=== PATIENT | male | born 1970 | race Caucasian/White ===

== ENCOUNTER → 2017-07-06 14:45 | Outpatient (POV) | payer BC, SELFPAY | PROVIDERS: Visit Provider Dermatology | DX: Z00.00 Encounter for general adult medical examination without abnormal findings (principal) ==

== ENCOUNTER → 2017-10-20 08:18 | Outpatient (CLI) | payer BC, SELFPAY ==
[2017-10-20 09:01] LABS: Alanine Aminotransferase 22 U/L (12-78); Albumin/Globulin Ratio 1.4 (1.1-1.8); Alkaline Phosphatase 108 U/L (46-116); Anion Gap 10.9 mEq/L (5-15); Aspartate Amino Transferase 9 U/L (15-37); Bilirubin,Total 0.4 mg/dL (0.2-1.0); Blood Urea Nitrogen 23 mg/dL (7-18); Calcium 9.1 mg/dL (8.5-10.1); Carbon Dioxide 29 mmol/L (21.0-32.0); Chloride 105 mmol/L (98-107); Cholesterol 152 mg/dL (140-200); Creatinine,Serum 0.99 mg/dL (0.70-1.30); Estimated Glomerular Filt Rate 80 ml/min (>60); GFR (African American) 97 ML/MIN (>60); Globulin 2.9 gm/dl (1.3-3.2); Glucose 125 mg/dL (74-106); HDL Cholesterol 38 mg/dL (27-67); LDL Cholesterol 90 mg/dL (0-130); Potassium 3.9 mmoL/L (3.5-5.1); Sodium 141 mmol/L (136-145); Total Protein,Serum 6.9 gm/dL (6.4-8.2); Triglycerides 118 mg/dL (30-200); Uric Acid 5.6 mg/dL (2.6-7.2); VLDL Cholesterol 24 mg/dL (0-40)
== END ==
PROVIDERS: Visit Provider Physician Assistant
DX: E78.1 Pure hyperglyceridemia (principal); E79.0 Hyperuricemia without signs of inflammatory arthritis and tophaceous disease; I10 Essential (primary) hypertension
CPT/HCPCS: 36415; 80053; 80061; 84550

== ENCOUNTER 2023-04-21 09:44 | Outpatient (CLI) | payer BC, SELFPAY ==
--- NOTE | 2023-04-21 09:53 | XR_ITS ---
FINAL REPORT CLINICAL HISTORY: RT SIDED LOW BACK PAIN FINDINGS: LUMBAR SPINE Five views demonstrate no acute fracture. Moderate degenerative changes are present. There is mild anterolisthesis of L4 on 5. Facet arthropathy seen in the lower lumbar spine. Note is made of vacuum phenomenon at L5-S1. IMPRESSION: Multilevel degenerative changes without acute bony abnormality. Reviewed, Interpreted and Dictated by Philippe Rubin III, MD Transcribed by Stephanie Bill Authenticated and [facility]
== END 2023-04-21 23:59 ==
LOC: RAD 09:48
PROVIDERS: PCP Physician Assistant; Visit Provider Physician Assistant
DX: M43.16 Spondylolisthesis, lumbar region (principal)
CPT/HCPCS: 72110

== ENCOUNTER 2023-06-12 14:49 | Outpatient (CLI) | payer BC, SELFPAY ==
[2023-06-12 15:36] LABS: Microscopic, Urine URINE MICROSCOPIC (MICROSCOPIC)
[2023-06-12 16:18] LABS: Appearance,Urine CLEAR (Clear); Bilirubin,Urine Negative (Negative); Blood, Urine Negative (Negative); Color,Urine YELLOW (Yellow); Glucose,Urine (UA) Negative (Negative); Ketones,Urine Negative (Negative); Leukocyte Esterase,Urine Negative (Negative); Nitrate,Urine Negative (Negative); Protein,Urine Negative (Negative); Specific Gravity, Urine 1.015 (1.005-1.030); Urobilinogen,Urine 0.2 EU/dl (0.2)
[2023-06-12 16:38] LABS: Squamous Epithelial Cell,Urine Occasional #/hpf (0-5)
[2023-06-13 13:10] LABS: PSA, Free 1.88 ng/mL; Prostate Specific Ag 11.4 ng/mL (0.0-4.0)
== END 2023-06-12 23:59 ==
LOC: LAB 14:50
PROVIDERS: PCP Physician Assistant; Visit Provider Urology
DX: N40.0 Benign prostatic hyperplasia without lower urinary tract symptoms (principal); R97.20 Elevated prostate specific antigen [PSA]
CPT/HCPCS: 36415; 81001; 84153; 84154

== ENCOUNTER 2023-06-22 11:40 | Day surgery (SDC) | payer BC, SELFPAY ==
[2023-05-22 10:39] VITALS: BMI 35.5
[2023-06-22 11:54] VITALS: BP 142/58; PULSE 57; RESP 18; TEMP 36.2; O2SAT 97
[2023-06-22] MEDS: LACTATED RINGERS 1000ML 1,000 ML 25 ML IV (11:59)
--- NOTE | 2023-06-22 12:24 | EXP.ANES.CKL ---
[facility] Disclaimer: The information contained in this section may have been updated after the patient was seen, as this information can be updated by other users. Medical History Hyperlipidemia Hypertension Surgical History History of esophagogastroduodenoscopy (EGD) History of colonoscopy History of tonsillectomy Family History Other Family history of heart disease Social History Smoking Status: Never smoker alcohol intake: never substance use type: denies use current occupational status: employed Travel in the last 8 weeks: None [facility] Anesthesia Checklist Patient Identification Patient Identification: Arm Band and Verbal (Name & ) Structural Data Admitted From: Home Planned Operative Procedure/s: Colonoscopy Consent for Planned Operative Procedure(s) Verified: Yes NPO Status Verified Time NPO: 00:00 Additional verifications Anesthesia Reactions: No Airway Assessment Mallampati Score:: Class II C-Spine Mobility Assessed: Yes TMJ Mobility Assessed: Yes Dentition: Poor Dentition Neurological Assessment Level of Consciousness: Awake Hx Seizures: No Numbness or tingling in extremities: No Anesthesia Plan Anesthesia Risk discussed: Yes Anesthesia Plan: Verified ASA Class: II Anesthesia Type: MAC
[2023-06-22 13:09] VITALS: O2SAT 97
--- NOTE | 2023-06-22 13:18 | HMH.SCOPE ---
Procedure: Date: 06/22/23 Patient Date of :: 1970 Procedure Performed:: Screening colonoscopy Indications:: History of polyps Performing Provider:: Carlotta Figueroa MD Referring Provider:: Megan Nuñez APRN Sedation:: Propofol Procedure:: After placing the patient in the left lateral decubitus position, the colonoscopy was gently inserted into the rectum and under direct visualization advanced to the cecum which was identified by transillumination in the right lower quadrant, identification of the ileocecal valve, appendiceal orifice, and cecal strap. Color, texture, mucosa, and anatomy of the colon were carefully examined with the scope. Findings:: Anal canal: normal Rectum: normal Sigmoid colon: normal without polyps or inflammatory changes Descending colon: normal without polyps or inflammatory changes Splenic flexure: normal Transverse colon: normal without polyps or inflammatory changes Hepatic flexure: normal Ascending colon: normal without polyps or inflammatory changes Cecum: normal Terminal ileum: not visualized Impression: Normal colonoscopy Recommendations:: Follow up examination in about FIVE years or so, sooner if clinically indicated in view of history of polyps. Complications:: None Estimated blood obtained (mL): 0 Colonoscopy Component Colonoscopy Component Was a colonoscopy performed during today's procedure?: Yes Recommended follow up colonoscopy of at least 10 years?: No If no, follow up colonoscopy recommended in ___ years?: Five Reason for not recommending >/= 10 yr follow-up interval?: Polyps
[2023-06-22 13:21] VITALS: BP 98/59; PULSE 61; RESP 16; O2SAT 96
[2023-06-22 13:31] VITALS: BP 104/66; PULSE 67; RESP 16; O2SAT 97
[2023-06-22 13:41] VITALS: BP 108/69; PULSE 61; RESP 16; O2SAT 98
== END 2023-06-22 14:00 | disposition home or self-care (01) ==
PROVIDERS: PCP Physician Assistant; Visit Provider Internal Medicine Gastroenterology
PROC: 0DJD8ZZ Inspection of Lower Intestinal Tract, Via Natural or Artificial Opening Endoscopic (ICD-10-PCS; CPT 45378; principal; 2023-06-22 13:00)
DX: Z12.11 Encounter for screening for malignant neoplasm of colon (principal); Z86.010 Personal history of colon polyps
CPT/HCPCS: 45378

== ENCOUNTER 2023-09-03 09:12 | Emergency (ER) | payer BC, SELFPAY ==
[2023-09-03 09:40] VITALS: BP 130/74; PULSE 88; RESP 18; TEMP 36.8; O2SAT 96; BMI 35.9
--- NOTE | 2023-09-03 09:42 | ED_ITS ---
Discharge Plan Disposition Patient Disposition: Home, Self-Care Condition: Good Prescriptions Prescriptions: New methylprednisolone 4 mg Tablets,Dose Pack 4 mg PO DIRECTED 6 Days Qty: 21 0RF Rx Instructions: Take 1 pack as directed for 6 days No Action loratadine 10 mg tablet 10 mg PO DAILY Patient Comments: TAKE 1 TABLET BY MOUTH ONCE DAILY tamsulosin [Flomax] 0.4 mg capsule 0.4 mg PO DAILY Qty: 30 3RF lisinopril 20 mg Tablet 20 mg PO DAILY bisoprolol fumarate 10 mg Tablet 10 mg PO DAILY rosuvastatin 20 mg Tablet 20 mg PO DAILY Referrals Follow up/Referrals: James Hernandez MD [Primary Care Provider] - See instructions Elaine Monroe DPM [Staff Physician] - See instructions Activity Restrictions/Add. Instructions Additional Instructions/Restrictions: Rest the extremity, Elevate the extremity as tolerated while you are resting. Don't start the oral steroids (medrol dose pack) until tomorrow since you had the shot here today. Follow up with Dr. Monroe (podiatry) if you continue to have these symptoms. I put in a referral but you need to call her office and schedule an appointment. Follow up with your regular doctor. GO TO THE ER FOR ANY WORSENING SYMPTOMS Clinical Impressions Clinical Impression: Right Achilles tendinitis, Pain in right ankle Stand Alone Forms Stand Alone Forms: Work/School Release Discharge ED Provider: Clint Manrique [facility] General Stated complaint: inj to left ankle, no known accident Time Seen by Provider: 09/03/23 09:42 History of Present Illness Provider Complaint: He states that for the past 5 days he has had left ankle pain. He denies any known injury. 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 He denies any other pain or complaints. He does have a history of gout. Related Data Home Medications Medication Instructions Recorded Confirmed bisoprolol fumarate 10 mg tablet 10 mg PO DAILY 05/22/23 09/03/23 lisinopril 20 mg tablet 20 mg PO DAILY 05/22/23 09/03/23 rosuvastatin 20 mg tablet 20 mg PO DAILY 05/22/23 09/03/23 loratadine 10 mg tablet 10 mg PO DAILY 06/12/23 09/03/23 Previous Rx's Medication Instructions Recorded tamsulosin 0.4 mg capsule (Flomax) 0.4 mg PO DAILY #30 caps 06/26/23 methylprednisolone 4 mg tablets in 4 mg PO DIRECTED 6 days #21 tabs 09/03/23 a dose pack Allergies Allergy/AdvReac Type Severity Reaction Status Date / Time amoxicillin Allergy Severe Other Verified 09/03/23 10:06 erythromycin base Allergy Severe Other Verified 09/03/23 10:06 Penicillins Allergy Severe Other Verified 09/03/23 10:06 [facility] Dis[facility]: The information contained in this section may have been updated after the patient was seen, as this information can be updated by other users. Medical History Hyperlipidemia Hypertension Surgical History History of esophagogastroduodenoscopy (EGD) History of colonoscopy History of tonsillectomy Family History Other Family history of heart disease Social History Smoking Status: Never smoker alcohol intake: never substance use type: denies use current occupational status: employed Travel in the last 8 weeks: None ROS Obtained: Yes All systems reviewed & no additional complaints except as documented Constitutional Constitutional: Denies chills and Denies fever(s) Eyes Eyes: Denies eye discharge ENT Ears, Nose, Mouth, and Throat: Denies dizziness, Denies otalgia and Denies sore throat Cardiovascular Cardiovascular: Denies chest pain Respiratory Respiratory: Denies shortness of breath, Denies chest congestion, Denies cough, Denies stridor and Denies wheezing Gastrointestinal Gastrointestingal: Denies nausea or vomiting Musculoskeletal Musculoskeletal: Reports as per HPI Integumentary/Breasts Skin/Breast: Denies rash Neurologic Neurologic: Denies dizziness and Denies paresthesias Allergic/Immunologic Allergic/Immunologic: Denies wheezing Physical Exam General General appearance: alert and in no apparent distress Head Head exam: atraumatic, normocephalic and normal inspection Eye Eye exam: Present normal appearance, PERRL and EOMI ENT ENT exam: Present normal exam, normal oropharynx, mucous membranes moist, TM's normal bilaterally and normal external ear exam Neck Neck exam: Present normal inspection, full ROM and trachea midline; Absent meningismus or lymphadenopathy Chest Chest inspection: Present normal inspection and symmetric chest wall rise; Absent tenderness Respiratory Respiratory exam: Present normal lung sounds bilaterally; Absent respiratory distress Cardiovascular Cardiovascular exam: Present regular rate and normal rhythm; Absent JVD Abdominal Exam Abdominal exam: Present soft and normal bowel sounds; Absent distention, tenderness or guarding Extremities Exam Extremities exam: Present normal capillary refill; Absent calf tenderness Expanded Lower Extremity Exam Left: Knee exam: Present normal inspection, full ROM and knee extension intact; Absent tenderness Lower leg exam: Present normal inspection, full ROM and Achilles tendon intact; Absent tenderness or Homans' sign Ankle exam: Present tenderness and swelling; Absent full ROM, abrasion, laceration, ecchymosis, deformity, crepitus, dislocation, erythema, tenderness over talofibular lig or anterior draw sign Foot/toe exam: Present normal inspection and full ROM; Absent tenderness Neurovascular/Tendon exam: Present normal capillary refill, normal 2-point discrimination and normal fine/light touch; Absent pulse deficit, motor deficit, sensory deficit, tendon deficit, extremity cold to touch or pallor Gait: observed and limited by pain Back Exam Back exam: Present normal inspection; Absent tenderness Neurological Exam Neurological exam: Present alert and oriented X3 Psychiatric Psychiatric exam: Present normal affect and normal mood Skin Skin exam: Present warm, dry, intact and normal color Lymphatic Lymphatic Findings: no adenopathy Medical Decision Making Medical Records Medical records reviewed: No I reviewed the patient's medical records. Mk Inquiry Pt receiving controlled substance: No
--- NOTE | 2023-09-03 09:45 | XR_ITS ---
PROCEDURE INFORMATION: Exam: XR Right Foot Exam date and time: 09/03/2023 9:55 AM Age: 52 years old Clinical indication: Injury or trauma; Other: Twisted TECHNIQUE: Imaging protocol: Radiologic exam of the right foot. Views: 3 or more views. COMPARISON: No relevant prior studies available. FINDINGS: Bones/joints: No acute fracture or malalignment. Mild 1st MTP joint degenerative changes. Soft tissues: Normal. IMPRESSION: No acute fracture or malalignment.
--- NOTE | 2023-09-03 09:45 | XR_ITS ---
PROCEDURE INFORMATION: Exam: XR Right Ankle Exam date and time: 09/03/2023 9:55 AM Age: 52 years old Clinical indication: Injury or trauma; Other: Twisted TECHNIQUE: Imaging protocol: Radiologic exam of the right ankle. Views: 3 or more views. COMPARISON: CR XR FOOT RT MIN 3V 09/03/2023 9:55 AM FINDINGS: Bones/joints: No acute fracture or malalignment. Joint spaces are maintained. Soft tissues: Normal. IMPRESSION: No acute fracture or malalignment.
[2023-09-03] MEDS: KETOROLAC 60MG/2ML VIAL 60 MG IM (11:00)
[2023-09-03] MEDS: METHYLPREDNISOLONE SOD SUCC 125MG VIAL 125 MG IM (11:01)
[2023-09-03 11:21] VITALS: BP 130/74; PULSE 88; RESP 18; TEMP 36.8; O2SAT 96
== END 2023-09-03 11:21 | disposition home or self-care (01) ==
PROVIDERS: Emergency Provider Nurse Practitioner Family; PCP Family Medicine
DX: M76.61 Achilles tendinitis, right leg (principal); M25.571 Pain in right ankle and joints of right foot
CPT/HCPCS: 73610; 73630; 96372; 99204; 99212; G0463

== ENCOUNTER 2024-02-19 13:14 | Outpatient (CLI) | payer BC, SELFPAY ==
[2024-02-20 03:53] LABS: PSA, Free 0.82 ng/mL; Prostate Specific Ag 12.8 ng/mL (0.0-4.0)
== END 2024-02-19 23:59 | disposition home or self-care (01) ==
LOC: LAB 13:15
PROVIDERS: PCP Family Medicine; Visit Provider Urology
DX: C61 Malignant neoplasm of prostate (principal); N40.0 Benign prostatic hyperplasia without lower urinary tract symptoms
CPT/HCPCS: 36415; 84153; 84154

== ENCOUNTER 2024-04-21 11:21 | Outpatient (CLI) | payer BC, SELFPAY ==
[2024-04-21 14:04] LABS: Prostate Specific Ag, Diagnost 16.2 ng/ml (0.0-4.0)
== END 2024-04-21 23:59 | disposition home or self-care (01) ==
LOC: LAB 11:22
PROVIDERS: PCP Physician Assistant; Visit Provider Urology
DX: C61 Malignant neoplasm of prostate (principal)
CPT/HCPCS: 36415; 84153

== ENCOUNTER 2024-10-01 18:30 | Emergency (ER) | payer BC, SELFPAY ==
--- OUTSIDE RECORDS SUMMARY | 2024-06-17 05:45 | XMS_ITS ---
[facility] Address [address] [place] [phone] Care Team Providers Care Remediation Bioanalytics Consultant Name Role Phone Keely Murray Primary Care Provider [phone] James Hernandez Unavailable [phone] Allergies Allergen (clinical drug ingredient) Drug/Non Drug [...] Status Risk Notes Problem Chronic gouty arthritis (14916786) Chronic idiopathic gout (M1A.00X0) Active confirmed Vital Signs Blood pressure systolic 118 mm Hg 06/18/19 25 Blood pressure diastolic 72 mm Hg 025 Heart Rate 72 /min 06/17/2024 Height 72 in 06/17/2024 Weight 262.6 lbs 06/17/2024 BMI 35.61 kg/m2 06/17/2024 Encounters Encounter Location Date Provider Diagnosis [place] [facility] 36 [facility] [address] [place], [place] [phone] 06/17/2024 James Hernandez Essential hypertensi on I10 [...] Up: 3 Months, Reason: Provider Name:James escalera, 11/25/2024 10:00:00 AM, [address] [facility] 36 [facility], [address], [place], [place], [phone], Progress Notes * RAMSES LICEADOB:1970 (53 yo M)Acc No.[id number]:06/17/2024 Progress Notes Patient: RAMSES GIBSON Provider: Mauricio Hernandez M.D. :1970 A ge:53 Y S ex:Male Date:06/17/2024 Address:[facility] [place] [facility] Pcp:Keely Murray Subjective: * Chief Complaints: * [...] * Images: Billing Information: * Visit Code: 53870 Office Visit, Est Pt., Level 4. * Procedure Codes: 3074F SYST BP LT 130 MM HG. 3078F DIAST BP < 80 MM HG. * Electronic signature of Ifrah Hernandez MD on 10/01/2024 at 06:38 PM EDT Sign off status: Pending * Provider: Mauricio Hernandez M.D. Date: 0 06/17/2024 Generated for Mukund ventura/Jo Ann/Nildaitting on: 0 10/01/2024 06:38 PM EDT History and Physical Notes * HPI [...]
--- OUTSIDE RECORDS SUMMARY | 2024-07-29 07:30 | XMS_ITS ---
Author Organization [facility] Address [address] [place] [id number] Care Team Providers Care Recovery Collector Name Role Phone Keely Murray Primary Care Provider [phone] James Hernandez Unavailable [phone] Allergies Allergen (clinical drug ingredient) Drug/Non Drug Allergy documented on EMR Reaction Allergy Type Onset Date Status Penicillin hives Drug Allergy Active Results Component Value Reference Range Notes Urinalysis - Inhouse Reviewed date:07/29/2024 04:28:07 PM Interpretation: Performing Lab: Notes/Report: Color/Clarity yellow/clear Leuk Neg Nitrite Neg Urobili 3.2 Protein Neg pH 6.0 Blood Trace-Intact Sp. Gr. 1.010 Ketone Neg Bili Neg Gluc Neg REASON FOR VISIT CDL physical Medications Medication SIG (Take, Route, Frequency, Duration) Notes Start Date End Date Status Flomax 0.4 MG 1 capsule Orally Onc e a day; Duration: 30 day(s) Active CoQ-10 100 MG 1 cap(s) orally once a day; Duration: 30 day(s) 01/28/2022 Active EQ All Day Allergy Relief 10 MG Take 1 tablet by mouth once daily; Duration: 30 Active Allopurinol 200 MG 1 tablet Orally Once a day Active Colchicine 0.6 MG 1 tablet Orally once daily Active Rosuvastatin Calcium 10 MG 1 tab(s) oral ly once a day; Duration: 90 days Active Lisinopril-hydroCHLOROthiaz tod 20-12.5 MG 2 tablet Orally Once a day; Duration: 90 days Active Metoprolol Succinate ER 100 MG 1 tablet Orally Once a day; Duration: 90 days 06/17/2024 Active Vital Signs Blood pressure systolic 160 mm Hg 07/30/19 25 Blood pressure diastolic 92 mm Hg 025 Heart Rate 73 /min 07/29/2024 Height 72 in 07/29/2024 Weight 263 lbs 07/29/2024 BMI 35.67 kg/m2 07/29/2024 Encounters Encounter Location Date Provider Diagnosis [facility] [address] [place] [phone] 07/29/2024 James Hernandez 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 :1970 A ge:53 Y S ex:Male Date:07/29/2024 Address:[address] [place], [place] [phone] Pcp:Keely Murray Subjective: * Chief Complaints: * 1 . CDL physical. * HPI: H PI: 53 year old male presents with c/o Patient is here today for?CDL physical. * ROS: D ERMATOLOGY: no R javid. [...] Out 2014, Colonoscopy 2015, Upper GI Scope 2016. * Hospitalization/Major Diagno stic Procedure: D enies [...] tab(s) orally once a day , Taking Lisinopril-hydroCHLOROthiazide 20-12.5 MG Tablet 2 tablet Orally Once a day , Taking Metoprolol Succinate ER 100 MG Tablet Extended Release 24 Hour 1 tablet Orally Once a day , Taking Allopurinol 200 MG Tablet 1 tablet Orally Once a day , Taking Colchicine 0.6 MG Tablet 1 tablet Orally once daily , Medication List reviewed and reconciled with the patient * Allergies: P enicillin: hives. Objective: * Vitals: W t: 263, Temp: 97.8, BP: 160/92, HR: 73, Nurse: nancy, Ht: 72, Repeat BP: 130/78, Visual Acuity: Left eye:20/20, Right eye:20/20, Both eyes:20/20, Color:Pass, Comments:With glasses, BMI:35.67. * Examination: G eneral Examination: General Appearance: N AD. H EENT: u nremarkable.?Oral cavity: n o lesions, mucosa moist and WNL, no erythema. N maurilio: s upple, no lymphadenopathy. C hest: n ormal shape and expansion. H eart: R SR. L ungs: c lear to auscultation. A bdomen: b owel sounds present , soft and nontender. N eurologic Exam: I ntact, gait normal. S kin: n ormal, no rash. P eripheral pulses: n ormal (2+) bilaterally. E xtremities: n o leg edema. Assessment: * Assessment: 1. 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 Gr. 1.010 * K etone Neg * B alka Neg * G alex Neg * Kaleigh Cordero 07/29/2024 11:22: 09 AM > Provider reviewed results while patient in office. * Procedure Codes: 8 1002 Urinalysis, no micro, 42735 VISUAL ACUITY SCREEN * Follow Up: p rn * Images: Billing Information: * Visit Code: 04303 Preventive Care Est Pt Age 40-64. * Procedure Codes: 76916 Urinalysis, [place] micro. 99542 VISUAL ACUITY SCREEN. * Electronic signature of Ifrah Hernandez MD on 10/01/2024 at 06:38 PM EDT Sign off status: Pending * Provider: Mauricio Hernandez M.D. Date: 0 07/29/2024 Generated for Carliei ng/Fajoshg/eTransmitting on: 0 10/01/2024 06:38 PM EDT History and Physical Notes * HPI (History of Present Illness) Category Sub-Category Detail Notes Category Not es HPI Patient is here today for CDL physical Examination Category Sub-Category Detail Notes Category Not es General Examination HEENT: unremarkable Heart: RSR Lungs: clear to auscultatio n Abdomen: bowel sounds present , soft and nontender Extremities: no leg edema General Appearance: NAD Skin: normal, no rash Neurologic Exam: Intact, gait normal Neck: supple, no lymphaden opathy Oral cavity: no lesions, mucosa m oist and WNL, no erythema Peripheral pulses: normal (2+) bilatera lly Chest: normal shape and exp ansion
--- OUTSIDE RECORDS SUMMARY | 2024-09-16 05:15 | XMS_ITS ---
Author Organization [facility] Address [address] [facility] [address] [place] [phone] Care Team Providers Care Ophthalmologist Retina Specialist Name Role Phone Keely Murray Primary Care Provider James Hernandez Unavailable [phone] Allergies Allergen (clinical drug ingredient) Drug/Non Drug [...] day; Duration: 30 day(s) Active Vital Signs Blood pressure systolic 122 mm Hg 09/17/19 25 Blood pressure diastolic 82 mm Hg 025 Heart Rate 64 /min 09/16/2024 Height 72 in 09/16/2024 Weight 260.4 lbs 09/16/2024 BMI 35.31 kg/m2 09/16/2024 Encounters Encounter Location Date Provider Diagnosis [facility] [address] [facility] 36 [facility] [address] [place] [phone] 09/16/2024 James Hernandez Essential hypertensi on I10 [...] Months fasting, Reason: Provider Name:James Paz , 11/25/2024 10:00:00 AM, [address] [facility] 36 [facility], [address], [place], [phone], Progress Notes * RAMSES LICEADOB:1970 (53 yo M)Acc No.[id number]:09/16/2024 Progress Notes Patient: RAMSES GIBSON Provider: Mauricio Hernandez M.D. :1970 A ge:53 Y S ex:Male Date:09/16/2024 Address:[facility] [place] , [id number] Pcp:Keely Murray Subjective: * Chief Complaints: * [...] * Images: Billing Information: * Visit Code: 31691 Office Visit, Est Pt., Level 3. * Procedure Codes: 1036F TOBACCO NON-USER. G8950 PREHTN/HTN BP DOC INDCD F/U DOC. G8752 MOST RECENT SYSTOLIC BP < 140MM HG. G8754 MOST RECENT DIASTOLIC BP < 90MM HG. 3017F COLORECTAL CA SCREEN DOC REV. * Electronic signature of Ifrah Hernandez MD on 10/01/2024 at 06:37 PM EDT Sign off status: Pending * Provider: Mauricio Hernandez M.D. Date: 0 09/16/2024 Generated for Mukund ventura/Jo Ann/Nildaitting on: 0 10/01/2024 06:37 PM EDT History and Physical Notes * [...]
--- OUTSIDE RECORDS SUMMARY | 2024-09-27 05:26 | XMS_ITS | Encounter Summary ---
Author Organization Healthcare Address [address] [place] [address] Care Team Providers Care Landscape Designer Name Role Phone Megan Nuñez Primary Care Provider [phone] Reason for Visit * Auth/Cert (Routine) Specialty Diagnoses / Procedures Referred By Contgold t Referred To Contact Diagnoses Prostate cancer (CMS/HCC) Prostate cancer (CMS/HCC) [C61] Procedures MD LAP,PROSTATECTOMY,RADICAL, W/NERVE SPARE,INCL ROBOTIC MD LAP,PELVIC LYMPHADENECTOMY MD REMOVE PELVIS LYMPH NODES PROSTATECTOMY, RADICAL, ROBOT-ASSISTED Vimal Patton MD [address] [address] Phone: tel: fax: [facility] [address] [place] [address] Phone: tel: Referral ID Status Reason Start Date Expiration Date Visits Re quested Visits Authorized [id number] 1 1 Encounter Details Date Type Department Care Team (Latest Contact Info) Description 09/27/2024 5:26 AM EDT - 09/27/2024 6:10 PM EDT Hospital Encounter [facility] [address] [place] [address] Vimal Patton MD [address] [address] Prostate cancer (CMS/HCC) Discharge Disposition: Home or Self Care Social History Tobacco Use Types Packs/Day Years Used Date Smoking Tobacco: Former Cigarettes Smokeless Tobacco: Never Alcohol Use Standard Drinks/Week Comments Not Currently 0 (1 standard drink = 0.6 oz pur e alcohol) PHQ-2 Answer Date Recorded Patient Health Questionnaire-2 Score 0 07/17/2024 PHQ-9 Answer Date Recorded Patient Health Questionnaire-9 Score 0 06/03/2024 Sex and Gender Information Value Date Recorded Sex Assigned at Male 06/30/2023 5:24 PM EDT Legal Sex Male 2:46 PM EDT Gender Identity Male 06/30/2023 5:24 PM EDT Sexual Orientation Straight 06/30/2023 5: 24 PM EDT documented as of this encounter Last Filed Vital Signs Vital Sign Reading Time Taken Comments Blood Pressure 132/75 09/27/2024 3:00 PM EDT Pulse 91 09/27/2024 5:00 PM EDT Temperature 37.2 C (99 F) 09/27/2024 11:50 AM EDT Respiratory Rate 18 09/27/2024 5:00 PM EDT Oxygen Saturation 94% 09/27/2024 5:00 PM EDT Inhaled Oxygen Concentration - - Weight 118 kg (260 lb) 09/27/2024 7:05 AM EDT Height 182.9 cm (6') 09/27/2024 7:05 AM EDT Body Mass Index 35.26 09/27/2024 7:05 AM EDT documented in this encounter Functional Status * Calculated C-SSRS Risk Score (Lifetime/Recent) Answer Date of Assessment Author No Risk Indicated 09/27/2024 6:15 AM EDT Keily Swanson RN * Question Answer Date of Assessment Author 1. Wish to be (Past 1 Month) No 025 6:15 AM EDT Keily Swanson RN 2. Non-Specific Active Suici juan pablo Thoughts (Past 1 Month) No 09/27/2024 6:15 AM EDT Oh Swanson RN 6. Suicidal Behavior (Lifetime) No 6:15 AM EDT Keily Swanson RN documented as of this encounter Discharge Instructions * Discharge Instructions* Hari Watson DO - 09/27/2024 11:43 AM EDT Follow-up on 10/[address] Patton for catheter removal. Clinic staff will reach out to schedule appointment. If you do not receive any correspondence within a week, please call the Urology Clinic at [phone] Take all medications as prescribed. Continue to take your routine medication unless your doctor hasadvised you differently. Take your pain medication as needed, but realize that this medication can cause constipation. Do not drive while taking narcotic pain medication. This medication can also affect your judgment and reflexes. You may return to your regular diet, but eat light for the first few days. Avoid constipation. Takea stool softener or laxative if necessary. You may shower. Allow soap/water to run over your incision(s). Do not scrub. Pat dry with a clean towel. You may re-dress your incisions with clean gauze/tape, such as that available at your local pharmacy Do not submerge your incisions, such as in a bathtub or swimming pool, until you are cleared by your surgeon in clinic. Avoid lifting >10lbs for 6 weeks. Avoid activities that cause significant straining/discomfort. Move around as you are able. Walking and activity will improve your healing and pain. Please contact the clinic or present to the nearest Emergency Room for the following symptoms: fever >101F, severe chills, severe nausea/vomiting, severe chest pain; your incisions become red, hot, swollen, or begin draining foul- smelling or purulent appearing fluid. Please contact the clinic with questions/concerns. documented in this encounter Medications at Time of Discharge acetaminophen (Tylenol) 500 MG tablet Take 2 tablets by mouth every 6 hours as needed for pain. 60 tablet 09/27/2024 allopurinol (Zyloprim) 100 MG tablet Take 2 tablets by mouth daily. 06/02/2024 aspirin 81 MG EC tablet Take 1 tablet by mouth as needed for headaches. cholecalciferol (Vitamin D-3) 25 MCG (1000 UT) tablet Take 1 tablet by mouth daily. co-enzyme Q-10 30 MG capsule Take 1 capsule by mouth daily. colchicine (Colcrys) 0.6 MG tablet Take 1 tablet by mouth as needed (Gout). ibuprofen 600 MG tablet Take 1 tablet by mouth every 6 hours as needed for mild pain for up to 30 doses. 30 tablet 09/27/2024 lidocaine (Lidoderm) 5 % patch Apply 1 patch topically daily over 12 hours for 10 days. Remove & discard patch within 12 hours or as directed by MD. 10 patch 09/27/2024 lisinopril-hydro CHLOROthiazide 20-12.5 MG tablet Take 2 tablets by mouth daily. 07/24/2023 Melatonin 10 MG tablet Take 10 mg by mouth at night as needed (Sleep). methocarbamol (Robaxin) 750 MG tablet Take 1 tablet by mouth 4 times a day for 10 days. 40 tablet 09/27/2024 metoprolol succinate XL (Toprol-XL) 100 MG 24 hr tablet Take 1 tablet by mouth daily. Do not crush or chew. multivitamin (Theragran-M) tablet Take 1 tablet by mouth daily. naloxone (Narcan) 4 mg/0.1 mL nasal spray 1. Give 1 spray in nostril for no/slow breathing or cannot wake after opioid use 2. Call 911 3. Repeat in other nostril if symptoms continue 1 each 09/27/2024 omega-3 (Fish Oil) 1000 MG capsule Take 1 capsule by mouth daily. oxyCODONE (Roxicodone) 5 MG immediate release tablet Take 1 tablet by mouth every 6 hours as needed for severe pain for up to 8 doses. 8 tablet 09/27/2024 Potassium 99 MG tablet Take 1 tablet by mouth daily. rosuvastatin (Crestor) 10 MG tablet Take 1 tablet by mouth daily. 09/27/2023 senna-docusate (Abi-Colace) 8.6-50 MG tablet Take 1 tablet by mouth daily. Do not take if you are having diarrhea 30 tablet 09/27/2024 tamsulosin (Flomax) 0.4 MG 24 hr capsule Take 1 capsule by mouth daily. documented as of this encounter Miscellaneous Notes * Discharge Summary - Kodi Lo MD - 09/27/2024 5:03 PM EDT Hospitalization Admit Date/Time: 09/27/2024 5:26 AM Admitting Attending: Vimal Patton Discharge Date: 09/27/24 Discharge Attending Physician: Vimal Patton MD PCP name and Address: Megan Nuñez PA [address] [address] / [place] [address] Referring provider name and address: No referring provider defined for this encounter. Chief Concern, Brief History of Present Illness, and Hospital Course Barrington Gordon is a 53 y.o. male with PMH Prostate Cancer who presented to [facility] for surgical intervention.. They were taken to the operating room on 09/27/24 for elective robot-assisted radical prostatectomy. The patient tolerated the procedure well and aroused from sedation, and taken to the recovery room in a stable condition. The patient's hospital course was uncomplicated. It was felt that the patient had reached maximal benefit from hospitalization. They were deemed appropriate for discharge to Home. On the day of discharge the patient's pain was controlled on oral medications, they were ambulating, catheter draining appropriately, tolerating oral intake,. The patient was discharged on 09/27/24 to Home and will return to clinic on 10/07/[address] Patton. Surgeries and Procedures PROSTATECTOMY, RADICAL, ROBOT-ASSISTED (N/A) Medication List .. acetaminophen 500 MG tablet Commonly known as: Tylenol Take 2 tablets by mouth every 6 hours as needed for pain. allopurinol 100 MG tablet Commonly known as: Zyloprim Take 2 tablets by mouth daily. aspirin 81 MG EC tablet Take 1 tablet by mouth as needed for headaches. cholecalciferol 25 MCG (1000 UT) tablet Commonly known as: Vitamin D-3 Take 1 tablet by mouth daily. co-enzyme Q-10 30 MG capsule Take 1 capsule by mouth daily. colchicine 0.6 MG tablet Commonly known as: Colcrys Take 1 tablet by mouth as needed (Gout). ibuprofen 600 MG tablet Take 1 tablet by mouth every 6 hours as needed for mild pain for up to 30 doses. lidocaine 5 % patch Commonly known as: Lidoderm Apply 1 patch topically daily over 12 hours for 10 days. Remove & discard patch within 12 hoursor as directed by MD. lisinopril-hydroCHLOROthiazide 20-12.5 MG tablet Take 2 tablets by mouth daily. Melatonin 10 MG tablet Take 10 mg by mouth at night as needed (Sleep). methocarbamol 750 MG tablet Commonly known as: Robaxin Take 1 tablet by mouth 4 times a day for 10 days. metoprolol succinate XL 100 MG 24 hr tablet Commonly known as: Toprol-XL Take 1 tablet by mouth daily. Do not crush or chew. multivitamin tablet Take 1 tablet by mouth daily. naloxone 4 mg/0.1 mL nasal spray Commonly known as: Narcan 1. Give 1 spray in nostril for no/slow breathing or cannot wake after opioid use 2. Call 911 3. Repeat in other nostril if symptoms continue omega-3 1000 MG capsule Commonly known as: Fish Oil Take 1 capsule by mouth daily. oxyCODONE 5 MG immediate release tablet Commonly known as: Roxicodone Take 1 tablet by mouth every 6 hours as needed for severe pain for up to 8 doses. Potassium 99 MG tablet Take 1 tablet by mouth daily. rosuvastatin 10 MG tablet Commonly known as: Crestor Take 1 tablet by mouth daily. senna-docusate 8.6-50 MG tablet Commonly known as: Abi-Colace Take 1 tablet by mouth daily. Do not take if you are having diarrhea tamsulosin 0.4 MG 24 hr capsule Commonly known as: Flomax Take 1 capsule by mouth daily. Where to Get Your Medications These medications were sent to [facility] - [place], [place] - [address] [facility] [id number] acetaminophen 500 MG tablet ibuprofen 600 MG tablet lidocaine 5 % patch methocarbamol 750 MG tablet naloxone 4 mg/0.1 mL nasal spray oxyCODONE 5 MG immediate release tablet senna-docusate 8.6-50 MG tablet Discharge Diagnosis Medical Problems Active and Resolved Hospital Problems Hospital * (Principal) Prostate cancer ([facility]) Post Discharge Instructions Follow-up on 10/[address] Patton for catheter removal. Clinic staff will reach out to schedule appointment. If you do not receive any correspondence within a week, please call the Urology Clinic at [phone] Take all medications as prescribed. Continue to take your routine medication unless your doctor hasadvised you differently. Take your pain medication as needed, but realize that this medication can cause constipation. Do not drive while taking narcotic pain medication. This medication can also affect your judgment and reflexes. You may return to your regular diet, but eat light for the first few days. Avoid constipation. Takea stool softener or laxative if necessary. You may shower. Allow soap/water to run over your incision(s). Do not scrub. Pat dry with a clean towel. You may re-dress your incisions with clean gauze/tape, such as that available at your local pharmacy Do not submerge your incisions, such as in a bathtub or swimming pool, until you are cleared by your surgeon in clinic. Avoid lifting >10lbs for 6 weeks. Avoid activities that cause significant straining/discomfort. Move around as you are able. Walking and activity will improve your healing and pain. Please contact the clinic or present to the nearest Emergency Room for the following symptoms: fever >101F, severe chills, severe nausea/vomiting, severe chest pain; your incisions become red, hot, swollen, or begin draining foul- smelling or purulent appearing fluid. Please contact the clinic with questions/concerns. Outpatient Follow-Up Future Appointments Date Time Provider Department Center 10/07/2024 12:15 PM Vimal Patton MD [facility] Test Results Pending At Discharge Pending Labs Order Current Status Surgical Pathology Exam In process Pertinent Physical Exam At Time of Discharge Physical Exam HENT: Mouth/Throat: Mouth: Mucous membranes are moist. Pharynx: Oropharynx is clear. Pulmonary: Effort: Pulmonary effort is normal. Abdominal: General: Abdomen is flat. Palpations: Abdomen is soft. Comments: Surgical Incisions Clean, Dry, and Intact, Vega Catheter draining pink tinged urine Skin: General: Skin is warm and dry. Neurological: General: No focal deficit present. Mental Status: He is alert and oriented to person, place, and time. Psychiatric: Mood and Affect: Mood normal. Behavior: Behavior normal. Discharge Disposition/Condition Disposition: Home Condition: Stable (s/sx potential problems absent or manageable) I spent >30 minutes of patient care and instruction time in preparation for this discharge. Cosigned by Vimal Patton MD at 10/01/2024 4:19 PM EDT Associated attestation - Vimal Patton MD - 10/01/2024 4:19 PM EDT I saw and evaluated the patient with the resident/fellow. I discussed the case with the resident/fellow and agree with the findings and plan as documented. * Hospital Course - Kodi Lo MD - 09/27/2024 2:39 PM EDT Barrington Gordon is a 53 y.o. male with PMH Prostate Cancer who presented to [facility] for surgical intervention.. They were taken to the operating room on 09/27/24 for elective robot-assisted radical prostatectomy. The patient tolerated the procedure well and aroused from sedation, and taken to the recovery room in a stable condition. The patient's hospital course was uncomplicated. It was felt that the patient had reached maximal benefit from hospitalization. They were deemed appropriate for discharge to Home. On the day of discharge the patient's pain was controlled on oral medications, they were ambulating, catheter draining appropriately, tolerating oral intake,. The patient was discharged on 09/27/24 to Home and will return to clinic on 10/07/[address] Patton. * Anesthesia PACU Signout - Moisés Campuzano MD - 09/27/2024 1:21 PM EDT Patient: Barrington Gordon Anesthesia Type: general Vitals Value Taken Time BP 134/76 09/27/24 13:15 Temp 37.2 ??C (99 ??F) 09/27/24 11:50 Pulse 58 09/27/24 13:20 Resp 8 09/27/24 13:20 SpO2 99 % 09/27/24 13:20 Vitals shown include unfiled device data. Anesthesia PACU Signout Patient location during evaluation: PACU Patient participation: complete - patient participated Level of consciousness: baseline and awake Pain management: adequate (pain score 0-3) Airway patency: natural airway Hydration status: acceptable PONV: none Cardiovascular status: acceptable and hemodynamically stable Respiratory status: acceptable, spontaneous ventilation, nonlabored ventilation and nasal cannula Discharge Disposition: admit to inpatient unit Cosigned by Suyapa Motley MD at 09/27/2024 1:41 PM EDT Associated attestation - Suyapa Motley MD - 09/27/2024 1:41 PM EDT I saw and evaluated the patient with the resident/fellow. I discussed the case with the resident/fellow and agree with the findings and plan as documented. * Op Note - Vimal Patton MD - 09/27/2024 8:26 AM EDT Operative Note Date: 09/27/24 Location: [facility] Name: Barrington Gordon, : 1970, Diagnoses: Pre-op Diagnosis Prostate cancer (CMS/HCC) Post-op Diagnosis Prostate cancer (CMS/[facility]) Procedure(s): Robotic radical prostatectomy Bilateral pelvic lymphadenectomy Attending Surgeon(s): * Vimal Patton - Primary Wordpress Developer(s): * Hari Watson DO - Resident - Assisting Anesthesia: General ASA: ASA status not filed in the log. Blood Administration: Blood Product Administration History None Estimated Blood Loss: 100 mL Drains: * None in log * Specimen: Specimens ID Source Frozen? 1 Prostate No Description: Prostate and seminal vesicles (permanent) 2 Pelvis No Description: Bilateral pelvic lymph nodes (permanent in formalin) Operative findings: Posterior approach performed. No gross lymphadenopathy or extra prostatic disease. 100% left-sided nerve spare and 90% right-sided nerve spare. Water tight vesicourethral anastomosis. Procedure: The patient was identified in the preoperative holding area. His history and physical and consent forms were reviewed. He was transferred to the operating room and placed supine on the table. He was induced with general endotracheal anesthesia and the bed was placed in Trendelenburg. His abdomen was shaved. His abdomen and genitals were prepped and draped in the usual sterile fashion and a time-out was performed indicating the correct patient and correct procedure. The patient received preoperative antibiotics and heparin for prophylaxis. A supraumbilical midline incision was made with an 11 blade scalpel. We gained access to the peritoneal cavity with a Veress needle and had low opening pressures with symmetric pneumoperitoneum. A robotic port was placed in this supraumbilical midline incision. The remainder of the robotic ports were placed in a horizontal line extending from the umbilicus. A 12 mm port was placed in the right lower quadrant and a 5 mm system port in the right upper quadrant. All ports were placed under direct visualization. The abdomen was inspected and found to be free of adhesions. The lateral attachments of the sigmoid colon were released from the peritoneum in the left lower quadrant. We made a curvilinear incision just above the sigmoid fat in the posterior peritoneum and performed a posterior dissection. The bilateral vas deferens were incised and the seminal vesicles were freed in their entirety. We then incised denonvillier's fascia and carried our blunt posterior dissection to the level of the prostatic apex. We then performed our bilateral pelvic lymphadenectomy. The borders of our dissection included the anterior surface of the external iliac artery laterally, the bladder medially, Trevor's ligament anteriorly, the ureter crossing the iliac artery proximally, in the pelvic sidewall and pelvic floor inferiorly. This included a hypogastric node dissection. The ureters were medialized on both sides andthe dissection was carried out laterally to the obliterated umbilical artery. The lymph nodes were set aside in the pelvis and the resection beds were inspected for hemostasis. We then incised the endopelvic fascia bilaterally. We divided the puboprostatic ligaments and ligated the dorsal vein with a 2-0 V lock suture tacked to the posterior pubic bone periosteum. We performed a full bladder neck sparing dissection. The Vega catheter was exposed and placed on anterior traction to finish our circumferential bladder neck incision. The vertical fibers were divided and the vas deferens and seminal vesicles from the prior posterior dissection more brought through this incision. We then performed our pedicle dissection with a combination of Weck clips and bipolar cautery. Judicious use of monopolar cautery was used. The neurovascular bundle was swept off the apical prostate and the remainder of the posterior dissection was performed under direct visualization with sharp dissection. We divided the dorsal vein with monopolar cautery. The periurethral attachments were divided with care to spare the urethral sling musculature. We divided the urethra over the Vega catheter in this freed our specimen. The prostate was inspected and the capsule found to be intact. The specimens were placed in a single specimen bag. The pelvis was thoroughly irrigated and the rectum was inspected and found to be intact. The pelviswas hemostatic. Our anastomosis was completed using 2 running 3-0 V lock sutures starting at 6:00 and running anteriorly on either side. The final 18 [place] Vega catheter was inserted and the balloon was inflated with 10 cc of sterile water. We performed a leak test which was negative. The urachus was spared throughout the procedure. Instruments were removed under direct visualization. The 12 mm port incision was extended and the specimen was retrieved intact. Fascia was closed with interrupted 1. PDS suture. All wounds were thoroughly irrigated and closed with running subcuticular 4-0 Monocryl suture. Dermabond was applied to the wounds. The patient tolerated the procedure well with no immediate complications. At the conclusion the case all sponge and instrument counts were correct. He was extubated in operating room and transferred to the PACU in stable condition. He will be admitted for overnight observation. I was present actively involved in the entirety of the procedure. Submitted by: Vimal Patton MD - 09/27/2024 * H&P - Kodi Lo MD - 09/27/2024 5:23 AM EDT Images from the original note were not included. Urology History and Physical Subjective: Barrington Gordon is a 53 y.o. male with clinical T1c grade group 1 low risk prostate cancer for which he was started on active surveillance. He previously had a low risk MRI 08/08/2023. His PSA recently went up to 12.20 on 10/02/2023. He underwent confirmatory biopsy on 06/03/24 which showed grade group 2 disease in the right mid-gland. After discussion of his options, he elected to proceed with RALP, for which he presents today. No new medical history, medicines, or recent illnesses noted. ROS: 14 point ROS reviewed and negative except as per HPI Past Medical History[1] Surgical History[2] Prescriptions Prior to Admission[3] Allergies[4] Social History[5] Family History[6] Employer: No address on file. Travel Screening Question Response Have you been in contact with someone who was sick? -- Do you have any of the following new or worsening symptoms? -- Have you traveled internationally or domestically in the last month? No Travel History Travel since 08/27/24 No documented travel since 08/27/24 VACCINE / DOSE Flu Tetanus Pneumovax Shingles Amoxicillin, Erythromycin base, and Penicillins Current Medications[7] Objective: Vital signs in last 24 hours: General: Appears well, no distress Chest: no tachypnea, retractions or cyanosis Cardiac: normal sinus rhythm Abdomen: soft, non-tender Extremities: extremities warm Neurological: awake, alert Assessment: Barrington Gordon is a 53 y.o. male with clinical T1c grade group 1 low risk prostate cancer for which he was started on active surveillance. He previously had a low risk MRI 08/08/2023. His PSA recently went up to 12.20 on 10/02/2023. He underwent confirmatory biopsy on 06/03/24 which showed grade group 2 disease in the right mid-gland. After discussion of his options, he elected to proceed with RALP, for which he presents today. Plan: The diagnoses, recommended procedures, and plan of care was once again discussed in detail with thepatient. All risks, benefits, and alternatives of the procedure were clearly elucidated. All questions were solicited and answered to satisfaction. Informed consent was obtained. We will proceed today with operative management as discussed. Patient and plan of care discussed with Vimal Patton MD who is in agreement. - To OR for RALP Dayo Watson DO PGY-3, Department of Urology Pager: [phone] [1] Past Medical History: Diagnosis Date Arthritis knees Benign prostatic hyperplasia Cancer (CMS/HCC) 2022 Dental disease missing teeth Hyperlipidemia Hypertension Prostate cancer (CMS/HCC) [2] Past Surgical History: Procedure Laterality Date TONSILLECTOMY [3] No medications prior to admission. [4] Allergies Allergen Reactions Amoxicillin Hives and Rash Erythromycin Base Hives and Rash Penicillins Hives and Rash [5] Social History Tobacco Use Smoking status: Former Current packs/day: 0.00 Types: Cigarettes Smokeless tobacco: Never Vaping Use Vaping status: Never Used Substance Use Topics Alcohol use: Not Currently Drug use: Not Currently [6] Family History Problem Relation Name Age of Onset Cancer Maternal Grandmother Cancer Maternal Grandfather Roel Trent Kidney disease Maternal Grandfather Roel Trent Prostate cancer Maternal Grandfather Roel Trent Chronic Leukemia Paternal Grandmother Hypertension Mother Bruno Gordon Heart disease Father Emery Gordon Hypertension Father Emery Gordon [7] No current facility-administered medications for this encounter. Current Outpatient Medications Medication Sig Dispense Refill allopurinol (Zyloprim) 100 MG tablet Take 2 tablets by mouth daily. cholecalciferol (Vitamin D-3) 25 MCG (1000 UT) tablet Take 1 tablet by mouth daily. co-enzyme Q-10 30 MG capsule Take 1 capsule by mouth daily. lisinopril-hydroCHLOROthiazide 20-12.5 MG tablet Take 2 tablets by mouth daily. Melatonin 10 MG tablet Take 10 mg by mouth at night as needed (Sleep). metoprolol succinate XL (Toprol-XL) 100 MG 24 hr tablet Take 1 tablet by mouth daily. Do not crush or chew. multivitamin (Theragran-M) tablet Take 1 tablet by mouth daily. omega-3 (Fish Oil) 1000 MG capsule Take 1 capsule by mouth daily. Potassium 99 MG tablet Take 1 tablet by mouth daily. rosuvastatin (Crestor) 10 MG tablet Take 1 tablet by mouth daily. tamsulosin (Flomax) 0.4 MG 24 hr capsule Take 1 capsule by mouth daily. aspirin 81 MG EC tablet Take 1 tablet by mouth as needed for headaches. colchicine (Colcrys) 0.6 MG tablet Take 1 tablet by mouth as needed (Gout). Cosigned by Vimal Patton MD at 10/01/2024 4:19 PM EDT Associated attestation - Vimal Patton MD - 10/01/2024 4:19 PM EDT I saw and evaluated the patient with the resident/fellow. I discussed the case with the resident/fellow and agree with the findings and plan as documented. * Preprocedure Instructions - Mckenzie Ocasio RN - 09/16/2024 9:47 AM EDT Home Medication Instructions Current Medications Medication Instructions allopurinol (Zyloprim) 100 MG tablet Take morning of surgery co-enzyme Q-10 30 MG capsule Hold day of surgery colchicine (Colcrys) 0.6 MG tablet Take as needed lisinopril-hydroCHLOROthiazide 20-12.5 MG tablet Hold day of surgery metoprolol tartrate (Lopressor) 50 MG tablet Take morning of surgery rosuvastatin (Crestor) 10 MG tablet Take morning of surgery tamsulosin (Flomax) 0.4 MG 24 hr capsule Take morning of surgery General Preoperative Instructions You will be called the business day before surgery with your arrival time Do not eat after midnight. Encouraged to drink clear liquids up until 2 hours prior to arrival time. No alcohol or smoking prior to surgery Arrive on time to avoid delays Parking/Registration procedure explained You MUST have a responsible adult available for transport to and from hospital Visitation policy for the day of surgery reviewed Bring insurance card, photo ID, along with power of rigging foreman, guardianship or advanced directives if applicable Do not bring money, jewelry or other valuables Hibiclens bathing instructions reviewed if applicable Notify surgeon of fever, illness, any changes or if you decide not to have surgery * PAT Phone Note - Mckenzie Ocasio RN - 09/16/2024 9:47 AM EDT KEENAN Gordon is a 53 y.o. male who presents with Pre-op Diagnosis * Prostate cancer (CMS/HCC) [C61] now scheduled for PROSTATECTOMY, RADICAL, ROBOT-ASSISTED (N/A). Date scheduled is 09/27/2024. Past Medical History[1] Family History[1] Social History[1] SURGICAL HISTORY: Surgical History[1] Allergies[1] MEDICATIONS: Current Medications[1] Mckenzie Ocasio RN [1] Past Medical History: Diagnosis Date Arthritis knees Benign prostatic hyperplasia Cancer (CMS/HCC) 2022 Dental disease missing teeth Hyperlipidemia Hypertension Prostate cancer (CMS/HCC) [1] Family History Problem Relation Name Age of Onset Cancer Maternal Grandmother Cancer Maternal Grandfather Roel Trent Kidney disease Maternal Grandfather Roel Trent Prostate cancer Maternal Grandfather Roel Trent Chronic Leukemia Paternal Grandmother Hypertension Mother Bruno Gordon Heart disease Father Emery Gordon Hypertension Father Emery Gordon [1] Social History Tobacco Use Smoking status: Former Current packs/day: 0.00 Types: Cigarettes Smokeless tobacco: Never Vaping Use Vaping status: Never Used Substance Use Topics Alcohol use: Not Currently Drug use: Not Currently [1] Past Surgical History: Procedure Laterality Date TONSILLECTOMY [1] Allergies Allergen Reactions Erythromycin Base Other - please document in the comment field Penicillins Hives, Other - please document in the comment field and Rash [1] No current facility-administered medications for this encounter. Current Outpatient Medications: allopurinol, Take 2 tablets by mouth daily. co-enzyme Q-10, Take 1 capsule by mouth daily. colchicine, Take 1 tablet by mouth as needed. lisinopril-hydroCHLOROthiazide, Take 2 tablets by mouth daily. metoprolol tartrate, Take 1 tablet by mouth daily. rosuvastatin, Take 1 tablet by mouth daily. tamsulosin, Take 1 capsule by mouth daily. amLODIPine, lisinopril, Take 2 tablets by mouth daily. (Patient not taking: Reported on 09/16/2024) loratadine, 1 tablet (10 mg). (Patient not taking: Reported on 07/17/2024) documented in this encounter Plan of Treatment Upcoming Encounters Date Type Department Care Team (Late st Contact Info) Description 10/07/2024 12:15 PM EDT Office Visit Medical Office Building Urology [address], [address] [place] [address] Vimal Patton MD [address] [place] [address] Pending Results Name Type Priority Associated Diagnoses Date /Time Surgical Pathology Exam Pathology and Cytology Routine Prostate cancer ([facility]/HCC) 09/27/2024 11:12 AM EDT Scheduled Orders Name Type Priority Associated Diagnoses Order Schedule Surgical Pathology Exam Pathology and Cytology Timed Prostate cancer (CMS/HCC) Release Upon Ordering for 1 Occurrences starting 09/27/2024, 1 completed documented as of this encounter Procedures Procedure Name Priority Date/Time Associated Diagnosis Comments CBC W/O DIFFERENTIAL Routine 09/27/2024 1:13 PM EDT BASIC METABOLIC PANEL, PLASMA Routine 09/27/2024 12:06 PM EDT MD LAP,PROSTATECTOMY,RAD ICAL,W/NERVE SPARE,INCL ROBOTIC 09/27/2024 7:26 AM EDT Prostate cancer ([facility]) POCT GLUCOSE METER UNSOLICITED RESULTS Routine 09/27/2024 7:12 AM EDT TYPE AND SCREEN Routine 09/27/2024 6:59 AM EDT documented in this encounter Results * (ABNORMAL) CBC W/O Differential (09/27/2024 1:13 PM EDT) WBC Count 16.41(H) 3.70 - 10.30 10*3/uL LAB HEMATOLOGY METHOD 09/27/2024 1:44 PM EDT [facility] RBC Count 4.64 4.60 - 6.10 10*6/uL LAB HEMATOLOGY METHOD 09/27/2024 1:44 PM EDT [facility] HGB 13.9 13.7 - 17.5 g/dL LAB HEMATOLOGY METHOD 09/27/2024 1:44 PM EDT [facility] HCT 40.0 40.0 - 51.0 % LAB HEMATOLOGY METHOD 09/27/2024 1:44 PM EDT [facility] Platelet Count 269 155 - 369 10*3/uL LAB HEMATOLOGY METHOD 09/27/2024 1:44 PM EDT [facility] MCV 86 79 - 98 fL LAB HEMATOLOGY METHOD 09/27/2024 1:44 PM EDT [facility] MCH 30.0 26.0 - 32.0 pg LAB HEMATOLOGY METHOD 09/27/2024 1:44 PM EDT [facility] MCHC 34.8 30.7 - 35.5 g/dL LAB HEMATOLOGY METHOD 09/27/2024 1:44 PM EDT [facility] RDW 12.8 11.5 - 14.5 % LAB HEMATOLOGY METHOD 09/27/2024 1:44 PM EDT [facility] MPV 10.4 8.8 - 12.5 fL LAB HEMATOLOGY METHOD 09/27/2024 1:44 PM EDT [facility] nRBC 0.0 <=0.0 per 100 WBCs LAB HEMATOLOGY METHOD 09/27/2024 1:44 PM EDT [facility] Blood Venous blood specimen / Unknown Venipuncture / Unknown 09/27/2024 1:13 PM EDT 09/27/2024 1:23 PM EDT us Vimal Patton MD LAB BLOOD ORDERABLES Final Result [facility] [address] [place] [address] * (ABNORMAL) Basic metabolic panel (09/27/2024 12:06 PM EDT) Glucose, Plasma 169(H) 74 - 99 mg/dL 09/27/2024 1:13 PM EDT [facility] BUN, Plasma 16 7 - 21 mg/dL 09/27/2024 1:13 PM EDT [facility] Creatinine, Plasma 0.93 0.70 - 1.20 mg/dL 09/27/2024 1:13 PM EDT [facility] BUN/Creatinine Ratio 17 09/27/2024 1:13 PM EDT [facility] Sodium, Plasma 138 136 - 145 mmol/L 09/27/2024 1:13 PM EDT [facility] Potassium, Plasma 3.6 3.6 - 4.9 mmol/L 09/27/2024 1:13 PM EDT [facility] Chloride, Plasma 103 97 - 107 mmol/L 09/27/2024 1:13 PM EDT [facility] CO2, Plasma 25 22 - 29 mmol/L 09/27/2024 1:13 PM EDT [facility] Anion Gap 10 6 - 16 mmol/L 09/27/2024 1:13 PM EDT [facility] Total Calcium, Plasma 9.0 8.9 - 10.2 mg/dL 09/27/2024 1:13 PM EDT [facility] eGFRcr 97.0 mL/min/1.7 3m*2 09/27/2024 1:13 PM EDT [facility] Comment:Reported eGFRcr in m L/min/1.73m2 is based the CKD-EPI 2020 equation that does not use a race coefficient. Blood Venous blood specimen / Unknown Venipuncture / Unknown 09/27/2024 12:06 PM EDT 09/27/2024 12:44 PM EDT Vimal Patton MD LAB BLOOD ORDERABLES Final Result Performing Organization Address City/[facility] Co de Phone Number [facility] [address] [place] [address] * (ABNORMAL) POCT glucose meter (09/27/2024 7:12 AM EDT) [facility] POCT Glucose 138(H) 74 - 99 mg/dL 09/27/2024 7:13 AM EDT [facility] Comment:Accuracy of a glucos e result obtained from a capillary whole blood specimen relies upon adequate, non-compromised capillary blood flow. If the capillary glucose result is not consistent with the patient's clinical signs and symptoms, glucose testing should be repeated with either an arterial or venous sample on the glucometer or sent to the main labortory for testing. Comment 09/27/2024 7:13 AM EDT [facility] School Business Manager ID Keily Swanson 09/28/19 7:13 AM EDT HEALTH[facility]ARE LAB Device ID [id number] 09/27/2024 7:13 AM EDT [facility]ALTH[facility] LAB Specimen Type POC Venous 09/27/2024 7:13 AM EDT [facility] Blood Venous blood specimen / Unknown 09/27/2024 7:12 AM EDT 09/27/2024 7:13 AM EDT Vimal Patton MD LAB POINT OF CARE T EST DOCKED DEVICE UNSOLICITED RESULTS Final Result Performing Organization Address City/[facility]/ZIP Co de Phone Number [facility] [address] [place] [address] * Type and Screen (09/27/2024 6:59 AM EDT) Pathologist [facility] ABO/Rh O Positive 09/27/2024 5:59 AM EDT BLOOD BANK Antibody Screen Negative 09/27/2024 5:59 AM EDT BLOOD BANK Specimen Expiration 09/30/2024 23:59 09/27/2024 5:59 AM EDT BLOOD BANK Blood Venous blood specimen / Unknown Venipuncture / Unknown 09/27/2024 6:59 AM EDT 09/27/2024 7:13 AM EDT us Vimal Patton MD LAB BLOOD BANK TEST ORDERAB LES Final Result BLOOD BANK [address] [place] [address], documented in this encounter Visit Diagnoses Diagnosis Prostate cancer (CMS/HCC)- Primary Malignant neoplasm of prostate documented in this encounter Admitting Diagnoses Diagnosis Prostate cancer (CMS/HCC) Malignant neoplasm of prostate documented in this encounter Administered Medications Inactive Administered Medications - up to 3 most recent administrations Medication Order MAR Action Action Date Dose Rate Site acetaminophen (Tylenol) tablet 1,000 mg 1,000 mg, Oral, Once, 1 dose, On Mon09/27/24 at 0645, Routine, Holding - Preprocedure Given 09/27/2024 6:28 AM EDT 1,000 mg acetaminophen (Tylenol) tablet 1,000 mg 1,000 mg, Oral, Once as needed, 1 dose, Starting on Mon09/27/24 at 1124, Until Mon09/27/24 at 2014, Routine, Recovery (Phase I only), pain score of >1 out of 10 droperidol (Inapsine) injection 0.625 mg 0.625 mg, Intravenous, Once as needed, 1 dose, Starting on Mon09/27/24 at 1124, Until Mon09/27/24 at 1324, Routine, Recovery (Phase I only), nausea, vomiting Given 09/27/2024 1:24 PM EDT 0.625 mg fentaNYL (Sublimaze) injection 25 mcg 25 mcg, Intravenous, Every 5 min PRN, 2 doses, Starting on Mon09/27/24 at 1124, Until Mon09/27/24 at 2014, Routine, Recovery (Phase I only), pain score of 3-4 out of 10 gabapentin (Neurontin) capsule 300 mg 300 mg, Oral, Once, 1 dose, On Mon09/27/24 at 0645, Routine, Holding - Preprocedure Given 09/27/2024 6:28 AM EDT 300 mg heparin (porcine) injection 5,000 Units 5,000 Units, Subcutaneous, Once, 1 dose, On Mon09/27/24 at 0645, Routine, Holding - Preprocedure Given 09/27/2024 6:28 AM EDT 5,000 Units Right Upper Arm (Back) HYDROmorphone (Dilaudid) injection 0.5 mg 0.5 mg, Intravenous, Every 10 min PRN, 2 doses, Starting on Mon09/27/24 at 1124, Until Mon09/27/24 at 2013, Routine, Recovery (Phase I only), pain score of 9-10 out of 10 Given 09/27/2024 12:07 PM EDT 0.5 mg ipratropium-albuterol (Duo-Neb) 0.5-2.5 mg/3 mL nebulizer solution 3 mL 3 mL, Nebulization, Once as needed, 1 dose, Starting on Mon09/27/24 at 1124, Until Mon09/27/24 at 1246, Routine, Recovery (Phase I only), shortness of breath Given 09/27/2024 12:46 PM EDT 3 mL ketorolac (Toradol) injection 15 mg 15 mg, Intravenous, Every 6 hours PRN, 5 doses, Starting on Mon09/27/24 at 1236, Until Mon09/27/24 at 2013, Routine, severe pain, Recovery(Phase II-Outpatient)/On Unit(Inpatient) Given 09/27/2024 12:56 PM EDT 15 mg morphine PF 4 mg 4 mg, Intravenous, Every 10 min PRN, 2 doses, Starting on Mon09/27/24 at 1124, Until Mon09/27/24 at 2013, Routine, Recovery (Phase I only), pain score of 5-8 out of 10 naloxone (Narcan) injection 0.4 mg 0.4 mg, Intravenous, As needed, Starting on Mon09/27/24 at 1124, Until Mon09/27/24 at 2013, Routine, Recovery (Phase I only), respiratory depression oxyCODONE (Roxicodone) immediate release tablet 10 mg 10 mg, Oral, Once as needed, 2 doses, Starting on Mon09/27/24 at 1124, Until Mon09/27/24 at 2013, Routine, Recovery (Phase I only), pain score of 6-8 out of 10 Given 09/27/2024 12:07 PM EDT 10 mg oxyCODONE (Roxicodone) immediate release tablet 5 mg 5 mg, Oral, Once as needed, 2 doses, Starting on Mon09/27/24 at 1124, Until Mon09/27/24 at 2013, Routine, Recovery (Phase I only), pain score of 3-5 out of 10 phenazopyridine (Pyridium) tablet 200 mg 200 mg, Oral, 3 times daily PRN, Starting on Mon09/27/24 at 1235, Until Mon09/27/24 at 2013, Routine, Recovery(Phase II-Outpatient)/On Unit(Inpatient), bladder spasms Given 09/27/2024 12:56 PM EDT 200 mg Povidone-Iodine 5 % swab solution 1 Application Nasal, Once, 1 dose, On Mon09/27/24 at 0645, Routine Given 09/27/2024 6:28 AM EDT 1 Application promethazine (Phenergan) suppository 12.5 mg 12.5 mg, Rectal, Once as needed, 1 dose, Starting on Mon09/27/24 at 1124, Until Mon09/27/24 at 2013, Routine, Recovery (Phase I only), nausea, vomiting sodium chloride 0.9 % flush 10 mL 10 mL, Intravenous, Every 12 hours, First dose on Mon09/27/24 at 0645, Until Discontinued, Routine, Holding - Preprocedure Given 09/27/2024 6:28 AM EDT 10 mL sodium chloride 0.9 % flush 10 mL 10 mL, Intravenous, As needed, Starting on Mon09/27/24 at 0558, Until Mon09/27/24 at 2013, Routine, Holding - Preprocedure, line care documented in this encounter Active and Recently Administered Medications Times are shown in EDT. Scheduled Medication Order 09/25/2024 09/26/2024 09/27/2024 acetaminophen (Tylenol) tablet 1,000 mg (COMPLETED) 1,000 mg, Oral, Once, 1 dose, On Mon09/27/24 at 0645, Routine, Holding - Preprocedure 0628 (Given - Provid er: Keily Swanson RN) gabapentin (Neurontin) capsule 300 mg (COMPLETED) 300 mg, Oral, Once, 1 dose, On Mon09/27/24 at 0645, Routine, Holding - Preprocedure 627 (Given - Provid er: Keily Swanson RN) heparin (porcine) injection 5,000 Units (COMPLETED) 5,000 Units, Subcutaneous, Once, 1 dose, On Mon09/27/24 at 0645, Routine, Holding - Preprocedure 627 (Given - Provid er: Keily Swanson RN) Povidone-Iodine 5 % swab solution 1 Application (COMPLETED) Nasal, Once, 1 dose, On Mon09/27/24 at 0645, Routine 06 (Given - Provid er: Keily Swanson RN) sodium chloride 0.9 % flush 10 mL(Linked Group 1) 10 mL, Intravenous, Every 12 hours, First dose on Mon09/27/24 at 0645, Until Discontinued, Routine, Holding - Preprocedure 627 (Given - Provid er: Keily Swanson RN)1845 (Canceled Entry - Provider: Automatic Discharge Provider - Comment: Automatically canceled at discontinue of medication order) PRN Medication Order 09/25/2024 09/26/2024 09/27/2024 acetaminophen (Tylenol) tablet 1,000 mg 1,000 mg, Oral, Once as needed, 1 dose, Starting on Mon09/27/24 at 1124, Until Mon09/27/24 at 2014, Routine, Recovery (Phase I only), pain score of >1 out of 10 1211 (Not Given - Pr ovider: Violeta Costello RN - Reason: Order changed) droperidol (Inapsine) injection 0.625 mg (COMPLETED) 0.625 mg, Intravenous, Once as needed, 1 dose, Starting on Mon09/27/24 at 1124, Until Mon09/27/24 at 1324, Routine, Recovery (Phase I only), nausea, vomiting 1324 (Given - Provid er: Violeta Costello RN) fentaNYL (Sublimaze) injection 25 mcg 25 mcg, Intravenous, Every 5 min PRN, 2 doses, Starting on Mon09/27/24 at 1124, Until Mon09/27/24 at 2013, Routine, Recovery (Phase I only), pain score of 3-4 out of 10 HYDROmorphone (Dilaudid) injection 0.5 mg 0.5 mg, Intravenous, Every 10 min PRN, 2 doses, Starting on Mon09/27/24 at 1124, Until Mon09/27/24 at 2013, Routine, Recovery (Phase I only), pain score of 9-10 out of 10 1207 (Given - Provid er: Violeta Costello RN) ipratropium-albuterol (Duo-Neb) 0.5-2.5 mg/3 mL nebulizer solution 3 mL (COMPLETED) 3 mL, Nebulization, Once as needed, 1 dose, Starting on Mon09/27/24 at 1124, Until Mon09/27/24 at 1246, Routine, Recovery (Phase I only), shortness of breath 1246 (Given - Provid er: Reid Syed) ketorolac (Toradol) injection 15 mg 15 mg, Intravenous, Every 6 hours PRN, 5 doses, Starting on Mon09/27/24 at 1236, Until Mon09/27/24 at 2013, Routine, severe pain, Recovery(Phase II-Outpatient)/On Unit(Inpatient) 1256 (Given - Provid er: Violeta Costello RN) morphine PF 4 mg 4 mg, Intravenous, Every 10 min PRN, 2 doses, Starting on Mon09/27/24 at 1124, Until Mon09/27/24 at 2013, Routine, Recovery (Phase I only), pain score of 5-8 out of 10 naloxone (Narcan) injection 0.4 mg 0.4 mg, Intravenous, As needed, Starting on Mon09/27/24 at 1124, Until Mon09/27/24 at 2013, Routine, Recovery (Phase I only), respiratory depression oxyCODONE (Roxicodone) immediate release tablet 10 mg(Linked Group 2) 10 mg, Oral, Once as needed, 2 doses, Starting on Mon09/27/24 at 1124, Until Mon09/27/24 at 2013, Routine, Recovery (Phase I only), pain score of 6-8 out of 10 1207 (Given - Provid er: Violeta Costello RN) oxyCODONE (Roxicodone) immediate release tablet 5 mg(Linked Group 2) 5 mg, Oral, Once as needed, 2 doses, Starting on Mon09/27/24 at 1124, Until Mon09/27/24 at 2013, Routine, Recovery (Phase I only), pain score of 3-5 out of 10 1207 (See Alternativ e - Provider: Violeta Costello RN) phenazopyridine (Pyridium) tablet 200 mg 200 mg, Oral, 3 times daily PRN, Starting on Mon09/27/24 at 1235, Until Mon09/27/24 at 2013, Routine, Recovery(Phase II-Outpatient)/On Unit(Inpatient), bladder spasms 1256 (Given - Provid er: Violeta Costello RN) promethazine (Phenergan) suppository 12.5 mg 12.5 mg, Rectal, Once as needed, 1 dose, Starting on Mon09/27/24 at 1124, Until Mon09/27/24 at 2013, Routine, Recovery (Phase I only), nausea, vomiting sodium chloride 0.9 % flush 10 mL(Linked Group 1) 10 mL, Intravenous, As needed, Starting on Mon09/27/24 at 0558, Until Mon09/27/24 at 2013, Routine, Holding - Preprocedure, line care Linked Groups Order Group 1: Insert peripheral IV (CANCELED) Once, On Mon09/27/24 at 0559, For 1 occurrence, Holding - Preprocedure And Saline lock IV (CANCELED) Once, On Mon09/27/24 at 0559, For 1 occurrence, Holding - Preprocedure And sodium chloride 0.9 % flush 10 mLJump to med 10 mL, Intravenous, Every 12 hours, First dose on Mon09/27/24 at 0645, Until Discontinued, Routine, Holding - Preprocedure And sodium chloride 0.9 % flush 10 mLJump to med 10 mL, Intravenous, As needed, Starting on Mon09/27/24 at 0558, Until Mon09/27/24 at 2013, Routine, Holding - Preprocedure, line care Group 2: oxyCODONE (Roxicodone) immediate release tablet 5 mgJump to med 5 mg, Oral, Once as needed, 2 doses, Starting on 6/27/25 at 1124, Until Mon09/27/24 at 2013, Routine, Recovery (Phase I only), pain score of 3-5 out of 10 Or oxyCODONE (Roxicodone) immediate release tablet 10 mgJump to med 10 mg, Oral, Once as needed, 2 doses, Starting on Mon09/27/24 at 1124, Until Mon09/27/24 at 2013, Routine, Recovery (Phase I only), pain score of 6-8 out of 10 documented in this encounter Additional Health Concerns Assessment Noted Time PHQ-9 Depression Total Score: 0 06/04/19 10:58 AM EST A fall risk assessment has been complete d for the patient 07/17/2024 12:41 PM EDT A Body Mass Index follow-up plan has been documented for the patient 07/18/2024 10:43 AM EDT documented as of this encounter Care Teams Landscape Designer Relationship Specialty Start Date End Date Megan Nuñez PA [address] [place] [address] [address] [place] [id number] PCP - General 08/08/23 documented as of this encounter
--- OUTSIDE RECORDS SUMMARY | 2024-09-27 07:36 | XMS_ITS | Encounter Summary ---
Author Organization Healthcare Address [address] [place] [address] Care Team Providers Care Civil Geotechnical Engineer Name Role Phone Megan Nuñez Primary Care Provider [phone] Reason for Visit * Auth/Cert (Routine) Specialty Diagnoses / Procedures Referred By Contac t Referred To Contact Diagnoses Prostate cancer (CMS/HCC) Prostate cancer (CMS/HCC) [C61] Procedures WI LAP,PROSTATECTOMY,RADICAL, W/NERVE SPARE,INCL ROBOTIC WI LAP,PELVIC LYMPHADENECTOMY WI REMOVE PELVIS LYMPH NODES PROSTATECTOMY, RADICAL, ROBOT-ASSISTED Vimal Patton MD [address] [place] [address] Phone: tel: fax: [facility] [address] [place] [address] Phone: tel: Referral ID Status Reason Start Date Expiration Date Visits Re quested Visits Authorized [id number] 1 1 Encounter Details Date Type Department Care Team (Late st Contact Info) Description 09/27/2024 7:36 AM EDT Anesthesia Event [facility] [address] [place] [address] Aric Dan, NUT CRACKER [address] [place] [address] Vernon Bradford, DO [address] [place], [place] [id number] Anesthesia Record Procedure Summary Procedure Name Responsible Anesthesiologist Anesthesia Start Time Anesthesia Stop Time PROSTATECTOMY, RADICAL, ROBOT-ASSISTED Aric Dan, NUT CRACKER 09/27/24 0736 09/27/24 1156 Events Date Time Event Comment 09/27/2024 0736 An Start The patient was reevaluated immediately before sedation and remains eligible for anesthesia plan. 0741 In Room 0742 An Start Data 0751 An Induction The patient was reevaluated immediately before moderate or deep sedation use and before anesthesia induction. 0752 An Intubation 0805 Anesthesia Ready 0826 Proc Start 0915 Attending Handoff 1138 Proc Fin 1143 An Extubation 1145 an stop data 1146 Out of Room 1155 Handoff to Receiving I compl eted my handoff to the receiving clinician during which we: 1. Identified the patient 2. Identified the responsible provider 3. Reviewed the pertinent medical history 4. Discussed the surgical course 5. Reviewed intra-op anesthesia management and issues during anesthesia 6. Set expectations for post-procedure period 7. Allowed opportunity for questions and acknowledgement of understanding. 1156 An Stop Meds Name Total midazolam (Versed) injection 1 mg/mL 2 m g fentaNYL (Sublimaze) injection 50 mcg/mL 200 mcg lidocaine PF (Xylocaine-MPF) 2% 100 mg propofol (Diprivan) injection 10 mg/mL 2 00 mg rocuronium (ZeMuron) injection 10 mg/mL 130 mg dexamethasone (Decadron) injection 4 mg/ mL 8 mg ePHEDrine injection prefilled syringe 5 mg/mL 10 mg ondansetron (Zofran) injection 2 mg/mL 4 mg sugammadex (Bridion) injection 100 mg/mL 300 mg 0.25% ropivacaine 60 mL ceFAZolin (Ancef) vial 1 g 2 g glycopyrrolate (Robinul) injection 0.2 m g/mL 0.1 mg lactated Ringer's infusion 1,200 mL * Agents Name Sevoflurane * Blood No blood administrations on file. Lines, Drains, and Airways Type Details Placement Removal Wound 09/27/24; 1150; Surg ical (5 lap sites throughout abdomen noted); Abdomen; Lower 09/27/24 1150 by Violeta Costello RN Peripheral IV Placement Date: 09/02 10/25; Placement Time: 07; Catheter Size: 18 G; Orientation: Left, Posterior; Location: Hand; Site Prep: Chlorhexidine ; Local Anesth: Paterson; Technique: Anatomical landmarks; Inserted by: Bob Swanson RN; Insertion Attempts: 2; Patient Tolerance: Tolerated well; Removal Date: 09/27/24; Removal Time: 18009/27/24 0707 by Keily Swanson RN 09/27/24 180 by Kathleen Anton RN ETT Placement Date: 09/02 10/25; Placement Time: 0752 (created via procedure documentation); Mask Ventilation: 3; Technique: Direct laryngoscopy; Type: ETT - single; Single Lumen Tube Size: 8 mm; Cuffed: Yes; Laryngoscope: Abigail; Blade Size: 4; Location: Oral; Grade View: Grade I; Insertion Attempts: 1; Placement Verification: Auscultation, Capnometry; Airway Comments: Atraumatic. No change to dentition. ; Placed by: NUT CRACKER; Removal Date: 09/27/24; Removal Time: 1143 09/27/24 0752 by Aric Dan CRNA 09/27/24 1143 by Aric Dan CRNA Peripheral IV Placement Date: 09/02 10/25; Placement Time: 0900; Catheter Size: 18 G; Orientation: Posterior, Right; Location: Hand; Inserted by: OR staff; Removal Date: 09/27/24; Removal Time: 18009/27/24 0900 by Violeta Costello RN 09/27/24 180 by Kathleen Anton RN documented in this encounter Social History Tobacco Use Types Packs/Day Years [...] PM EDT documented as of this encounter Functional Status * Calculated C-SSRS [...] Swanson RN documented as of this encounter Miscellaneous Notes * Anesthesia Postprocedure Evaluation - Aric Dan CRNA - 09/27/2024 11:56 AM EDT Patient: Barrington Gordon Anesthesia Type: general Vitals Value Taken Time BP 132/63 09/27/24 11:50 Temp 97.8 09/27/24 11:56 Pulse 63 09/27/24 11:55 Resp 24 09/27/24 11:55 SpO2 99 % 09/27/24 11:55 Vitals shown include unfiled device data. Anesthesia Post Evaluation Patient location during evaluation: PACU Patient participation: complete - patient participated Level of consciousness: awake Pain management: adequate (pain score 0-3) Airway patency: natural airway Cardiovascular status: acceptable and hemodynamically stable Respiratory status: acceptable and blow-by oxygen Hydration status: acceptable Nausea/Vomiting: No No notable events documented. * Anesthesia Procedure Notes - Aric Dan CRNA - 09/27/2024 8:28 AM EDTAssociated Order(s): Airway Airway Date/Time: 09/27/2024 7:52 AM Reason: elective Airway not difficult General Information and Staff Patient location during procedure: OR NUT CRACKER: Aric Dan CRNA Performed: EFFIE Patient Condition Indications for airway management: anesthesia Patient position: sniffing Final Airway Details Final airway type: endotracheal airway Successful airway: ETT Cuffed: yes Successful intubation technique: direct laryngoscopy Adjuncts used in placement: intubating stylet Endotracheal tube insertion site: oral Blade: Abigail Blade size: #4 ETT size (mm): 8.0 Cormack-Lehane Classification: grade I - full view of glottis Placement verified by: chest auscultation and capnometry Measured from: lips ETT to lips (cm): 21 Additional Comments Atraumatic. No change to dentition. * Anesthesia Procedure Notes - Billy Nguyen MD - 09/27/2024 8:15 AM EDT Associated Order(s): Peripheral Block Peripheral Block Patient location during procedure: OR Start time: 09/27/2024 7:55 AM End time: 09/27/2024 8:00 AM Reason for block: post-op pain management Block is at surgeon's request Staffing Performed: Resident Anesthesiologist: Suyapa Motley MD Resident: Billy Nguyen MD Preanesthetic Checklist Completed: patient identified, IV checked, site marked, risks and benefits discussed, surgical consent, monitors and equipment checked, pre-op evaluation and timeout performed Peripheral Block Patient position: supine Prep: ChloraPrep Patient monitoring: continuous pulse ox, heart rate and nurse monitoring Block type: TAP Laterality: left and right Injection technique: single-shot Guidance: ultrasound guided Ultrasound used for needle placement AND ultrasound image retained Needle Needle type: short-bevel Needle gauge: 20. Needle length: 4. Needle localization: anatomical landmarks and ultrasound guidance Medications Administered 0.25% ropivacaine - Injection 60 mL - 09/27/2024 7:55:00 AM Assessment Injection assessment: negative aspiration for heme, local visualized surrounding nerve on ultrasound and incremental injection Paresthesia pain: none Heart rate change: no Slow fractionated injection: yes Additional Notes The patient was in supine position. A linear ultrasound probe was placed on the lateral wall of theabdomen between the costal margin and the iliac crest and the relevant muscular anatomy was visualized. A large area of skin encompassing the intended needle insertion site was cleansed using chloraprep.The block needle was inserted through skin from the anterior aspect and advanced through the external oblique m., internal oblique m. and into the fascial plane between the internal oblique m. and the transversus abdominis m. using an in-plane technique with ultrasound guidance. Aspiration was negative for heme or bowel contents. Local anesthetic was injected into the TAP plane incrementally in 5mL aliquots, aspirating between each injection. Ultrasound imaging was utilized to confirm spread oflocal anesthetic along the fascial plane with the goal of reaching posteriorly to the end of the transversus abdominis m. The same block was performed on the contralateral side. A total of 60cc of 0.25% Ropivacaine without adjunct was utilized for the block. The needle was removed from the patient. The patient tolerated the procedure well, with no obvious complications. Cosigned by Suyapa Motley MD at 09/27/2024 8:31 AM EDT Associated attestation - Suyapa Motley MD - 09/27/2024 8:31 AM EDT I was present during all critical and hernandez portions of the procedure(s) and immediately available [facility] services the entire duration. See resident note for details. * Anesthesia Preprocedure Evaluation - Lloyd Tena MD - 09/27/2024 6:41 AM EDT Images from the original note were not included. No anesthesia staff entered. Patient: Barrington Gordon HPI Barrington Gordon is a 53 y.o. male with body mass index is unknown because there is no height or weighton file. who presents with Prostate cancer (CMS/HCC), now for PROSTATECTOMY, RADICAL, ROBOT-ASSISTED (N/A) Department of Anesthesiology Perioperative Critical Care and Pain Medicine HPI Barrington Gordon is a 53 y.o. male who presents with Prostate cancer (CMS/HCC) now scheduled for above listed procedure PROSTATECTOMY, RADICAL, ROBOT-ASSISTED (N/A). Past Medical History[1] Surgical History[2] Current Outpatient Medications Medication Instructions allopurinol (ZYLOPRIM) 200 mg, Daily aspirin 81 mg, Oral, As needed cholecalciferol (VITAMIN D-3) 1,000 Units, Daily co-enzyme Q-10 30 mg, Daily colchicine (COLCRYS) 0.6 mg, Oral, As needed lisinopril-hydroCHLOROthiazide 20-12.5 MG tablet 2 tablets, Daily Melatonin 10 mg, Nightly PRN metoprolol succinate XL (TOPROL-XL) 100 mg, Daily multivitamin (Theragran-M) tablet 1 tablet, Daily omega-3 (FISH OIL) 1,000 mg, Daily Potassium 99 MG tablet 1 tablet, Daily rosuvastatin (CRESTOR) 10 mg, Daily tamsulosin (FLOMAX) 0.4 mg, Daily Allergies[3] Social History[4] Family History[5] OBJECTIVE DATA Vitals: 09/27/24 0615 BP: 135/75 Pulse: 56 Resp: 14 Temp: 36.9 ??C (98.4 ??F) SpO2: 98% Patient weight not recorded LABS Type and Screen No results found for: ABO No results found for: PREGTESTUR , PREGSERUM , HCG , HCGQUANT No results found for: WBC , HGB , HCT , MCV , PLT No results found for: GLUCOSE , BUN , CREATININE , BCR , NA , K , CL , CO2 , AG , CA , PROT , ALBUMIN , ALKPHOS , BILITOT Diabetic Labs No results found for: HGBA1C EKG No results found for this or any previous visit (from the past 4464 hours). ECHO No echocardiogram results found for the past 12 months PFTs No results found for: OWL9DKB , ULA9HQVX , FWX7QUB , FVCPRED Physical Exam Airway Mallampati: III Mouth opening: normal TM distance: >3 FB Neck ROM: full Cardiovascular Rhythm: regular Rate: normal Dental Pulmonary Comments: Symmetric chest rise, moving air bilat, no increased wob Neurological Skin Musculoskeletal Extremities Anesthesia Plan ASA 2 Plan was reviewed with: NUT CRACKER Anesthesia technique(s) discussed with the patient/family: general Anesthesia plan agreed upon was: general Comment: Risks, benefits and alternatives for anesthesia discussed with patient. Patient understands the risks of anesthesia and wishes to proceed with anesthesia at this time. All questions were answered to patient's satisfaction. Anesthetic plan and risks discussed with patient. Use of blood products discussed with patient who. Anesthesia Evaluation [1] Past Medical History: Diagnosis Date Arthritis knees Benign prostatic hyperplasia Cancer (CMS/HCC) 2022 Dental disease missing teeth Hyperlipidemia Hypertension Prostate cancer ([facility]) [2] Past Surgical History: Procedure Laterality Date TONSILLECTOMY [3] Allergies Allergen Reactions Amoxicillin Hives and Rash Erythromycin Base Hives and Rash Penicillins Hives and Rash [4] Social History Tobacco Use Smoking status: Former Current packs/day: 0.00 Types: Cigarettes Smokeless tobacco: Never Vaping Use Vaping status: Never Used Substance Use Topics Alcohol use: Not Currently Drug use: Not Currently [5] Family History Problem Relation Name Age of Onset Cancer Maternal Grandmother Cancer Maternal Grandfather Roel Trent Kidney disease Maternal Grandfather Roelmylene Trent Prostate cancer Maternal Grandfather Roel Trent Chronic Leukemia Paternal Grandmother Hypertension Mother Bruno Gordon Heart disease Father Emery Gordon Hypertension Father Emery Gordon documented in this encounter Plan of Treatment Upcoming Encounters Date Type Department Care Team ([facility] st Contact Info) Description 10/07/2024 12:15 PM EDT Office Visit Medical Office Building Urology [address], [address] [place] [address] Vimal Patton MD [address] [place] [address] documented as of this encounter Procedures Procedure Name Priority Date/Time Associated Diagnosis Comments PB POINT OF CARE IMAGING PLACEHOLDER Routine 09/27/2024 7:55 AM EDT PB ANESTHESIA PLACEHOLDER Routine 09/27/2024 7:52 AM EDT WI AN ELECTIVE ENDOTRACHEAL AIRWAY Routine 09/27/2024 7:52 AM EDT documented in this encounter Results * PB POINT OF CARE IMAGING PLACEHOLDER (09/27/2024 7:55 AM EDT) Narrative Suyapa Motley MD - 09/27/2024 7:55 AM EDT Suyapa Motley MD 09/27/2024 8:31 AM Peripheral Block Patient location during procedure: OR Start time: 09/27/2024 7:55 AM End time: 09/27/2024 8:00 AM Reason for block: post-op pain management Block is at surgeon's request Staffing Performed: Resident Anesthesiologist: Suyapa Motley MD Resident: Billy Nguyen MD Preanesthetic Checklist Completed: patient identified, IV checked, site marked, risks and benefits discussed, surgical consent, monitors and equipment checked, pre-op evaluation and timeout performed Peripheral Block Patient position: supine Prep: ChloraPrep Patient monitoring: continuous pulse ox, heart rate and nurse monitoring Block type: TAP Laterality: left and right Injection technique: single-shot Guidance: ultrasound guided Ultrasound used for needle placement AND ultrasound image retained Needle Needle type: short-bevel Needle gauge: 20. Needle length: 4. Needle localization: anatomical landmarks and ultrasound guidance Medications Administered 0.25% ropivacaine - Injection 60 mL - 09/27/2024 7:55:00 AM Assessment Injection assessment: negative aspiration for heme, local visualized surrounding nerve on ultrasound and incremental injection Paresthesia pain: none Heart rate change: no Slow fractionated injection: yes Additional Notes The patient was in supine position. A linear ultrasound probe was placed on the lateral wall of the abdomen between the costal margin and the iliac crest and the relevant muscular anatomy was visualized. A large area of skin encompassing the intended needle insertion site was cleansed using chloraprep. The block needle was inserted through skin from the anterior aspect and advanced through the external oblique m., internal oblique m. and into the fascial plane between the internal oblique m. and the transversus abdominis m. using an in-plane technique with ultrasound guidance. Aspiration was negative for heme or bowel contents. Local anesthetic was injected into the TAP plane incrementally in 5mL aliquots, aspirating between each injection. Ultrasound imaging was utilized to confirm spread of local anesthetic along the fascial plane with the goal of reaching posteriorly to the end of the transversus abdominis m. The same block was performed on the contralateral side. A total of 60cc of 0.25% Ropivacaine without adjunct was utilized for the block. The needle was removed from the patient. The patient tolerated the procedure well, with no obvious complications. Suyapa Motley MD ANESTHESIA ORDERABLES Final Result * WI AN ELECTIVE ENDOTRACHEAL AIRWAY, PB ANESTHESIA PLACEHOLDER (09/27/2024 7:52 AM EDT) Narrative Aric Dan CRNA - 09/27/2024 7:52 AM EDT Aric Dan CRNA 09/27/2024 8:29 AM Airway Date/Time: 09/27/2024 7:52 AM Reason: elective Airway not difficult General Information and Staff Patient location during procedure: OR NUT CRACKER: Aric Dan CRNA Performed: NUT CRACKER Patient Condition Indications for airway management: anesthesia Patient position: sniffing Final Airway Details Final airway type: endotracheal airway Successful airway: ETT Cuffed: yes Successful intubation technique: direct laryngoscopy Adjuncts used in placement: intubating stylet Endotracheal tube insertion site: oral Blade: Abigail Blade size: #4 ETT size (mm): 8.0 Cormack-Lehane Classification: grade I - full view of glottis Placement verified by: chest auscultation and capnometry Measured from: lips ETT to lips (cm): 21 Additional Comments Atraumatic. No change to dentition. Lloyd Tena MD ANESTHESIA ORDERABLES Final Result documented in this encounter Visit Diagnoses Not on filedocumented in this encounter Administered Medications Inactive Administered Medications - up to 3 most recent administrations Medication Order MAR Action Action Date Dose Rate Site ceFAZolin (Ancef) injection Intravenous, As needed, Starting on Mon09/27/24 at 0810, Until Mon09/27/24 at 1156, Routine, Anesthesia Intraprocedure Given 09/27/2024 8:10 AM EDT 2 g dexamethasone (Decadron) injection Intravenous, As needed, Starting on Mon09/27/24 at 0820, Until Mon09/27/24 at 1156, Routine, Anesthesia Intraprocedure Given 09/27/2024 8:20 AM EDT 8 mg ePHEDrine Sulfate (Akovaz) injection Intravenous, As needed, Starting on Mon09/27/24 at 0805, Until Mon09/27/24 at 1156, Routine, Anesthesia Intraprocedure Given 09/27/2024 8:05 AM EDT 10 mg fentaNYL (Sublimaze) injection Intravenous, As needed, Starting on Mon09/27/24 at 0751, Until Mon09/27/24 at 1156, Routine, Anesthesia Intraprocedure Given 09/27/2024 11:25 AM EDT 50 mcg Given 09/27/2024 8:59 AM EDT 50 mcg Given 09/27/2024 7:51 AM EDT 100 mcg glycopyrrolate (Robinul) injection Intravenous, As needed, Starting on Mon09/27/24 at 0820, Until Mon09/27/24 at 1156, Routine, Anesthesia Intraprocedure Given 09/27/2024 8:20 AM EDT 0.1 mg lactated Ringer's infusion Intravenous, Continuous PRN, Starting on Mon09/27/24 at 0736, Until Mon09/27/24 at 1156, Routine New Bag 09/27/2024 7:36 AM EDT lidocaine PF (Xylocaine) 2 % injection Intravenous, As needed, Starting on Mon09/27/24 at 0751, Until Mon09/27/24 at 1156, Routine, Anesthesia Intraprocedure Given 09/27/2024 7:51 AM EDT 100 mg midazolam (Versed) injection Intravenous, As needed, Starting on Mon09/27/24 at 0736, Until Mon09/27/24 at 1156, Routine, Anesthesia Intraprocedure Given 09/27/2024 7:36 AM EDT 2 m g ondansetron (Zofran) injection Intravenous, As needed, Starting on Mon09/27/24 at 1111, Until Mon09/27/24 at 1156, Routine, Anesthesia Intraprocedure Given 09/27/2024 11:11 AM EDT 4 mg propofol (Diprivan) injection Intravenous, As needed, Starting on Mon09/27/24 at 0751, Until Mon09/27/24 at 1156, Routine, Anesthesia Intraprocedure Given 09/27/2024 7:51 AM EDT 200 mg rocuronium (ZeMuron) injection Intravenous, As needed, Starting on Mon09/27/24 at 0751, Until Mon09/27/24 at 1156, Routine, Anesthesia Intraprocedure Given 09/27/2024 9:39 AM EDT 30 mg Given 09/27/2024 7:51 AM EDT 100 mg ropivacaine (Naropin) injection Injection, Once PRN Procedure, Starting on Mon09/27/24 at 0755, Until Mon09/27/24 at 0755, Routine, Anesthesia Intraprocedure Given 09/27/2024 7:55 AM EDT 60 mL sugammadex (Bridion) 100 MG/ML injection Intravenous, As needed, Starting on Mon09/27/24 at 1124, Until Mon09/27/24 at 1156, Routine, Anesthesia Intraprocedure Given 09/27/2024 11:39 AM EDT 100 mg Given 09/27/2024 11:30 AM EDT 100 mg Given 09/27/2024 11:24 AM EDT 100 mg documented in this encounter Additional Health Concerns Assessment Noted Time PHQ-9 Depression Total Score: 0 06/04/19 10:58 AM EST A fall risk assessment has been complete d for the patient 07/17/2024 12:41 PM EDT A Body Mass Index follow-up plan has been documented for the patient 07/18/2024 10:43 AM EDT documented as of this encounter Care Teams Civil Geotechnical Engineer Relationship Specialty Start Date End Date Megan Nuñez PA [address] [place] [address] [address] [place] [address] PCP - General 08/08/23 documented as of this encounter
--- OUTSIDE RECORDS SUMMARY | 2024-09-27 07:45 | XMS_ITS | Encounter Summary ---
Author Organization Healthcare Address [address] [place] [address] Care Team Providers Care Labeling Specialist Name Role Phone Megan Nuñez Primary Care Provider [phone] Reason for Visit * Auth/Cert (Routine) Specialty Diagnoses / Procedures Referred By Contac t Referred To Contact Diagnoses Prostate cancer (CMS/HCC) Prostate cancer (CMS/HCC) [C61] Procedures PA LAP,PROSTATECTOMY,RADICAL, W/NERVE SPARE,INCL ROBOTIC PA LAP,PELVIC LYMPHADENECTOMY PA REMOVE PELVIS LYMPH NODES PROSTATECTOMY, RADICAL, ROBOT-ASSISTED Vimal Patton MD [address] [address] Phone: tel: fax: [facility] [address] [place] [address] Phone: tel: Referral ID Status Reason Start Date Expiration Date Visits Re quested Visits Authorized [id number] 1 1 Encounter Details Date Type Department Care Team (Late st Contact Info) Description 09/27/2024 7:45 AM EDT - 09/27/2024 12:25 PM EDT Surgery [facility] [address] [place] [address] Vimal Patton MD [address] [address] PROSTATECTOMY, RADICAL, ROBOT-ASSISTED [25621 (CPT )] Surgery Details Date/Time Status Location OR Service Patient Class Case Class Case Type Trauma Case? 09/27/2024 7:45 AM Posted [facility] OR 2OR 04 Urology Extended Recovery E-Electiv e Panel 1 Procedure LRB Anes Op Region Wound Class Comments PROSTATECTOMY, RADICAL, ROBOT-ASSISTED N/A General Class II/ Clean Contaminat ed Surgeon Surgeon Role Service Panel Hari Watson DO Resident - Assisting 1 Vimal Patton MD Primary Urology 1 documented in this encounter Social History Tobacco [...] Sign Reading Time Taken Comments Blood Pressure 139/65 09/27/2024 12:15 PM EDT Pulse 60 09/27/2024 12:15 PM EDT Temperature 37.2 C (99 F) 09/27/2024 11:50 AM EDT Respiratory Rate 15 09/27/2024 12:15 PM EDT Oxygen Saturation 93% 09/27/2024 12:15 PM EDT Inhaled Oxygen Concentration - - [...] week, please call the Urology Clinic at [phone] Take all medications as prescribed. Continue to [...] as directed by MD. 10 patch 09/27/2024 5 lisinopril-hydro CHLOROthiazide 20-12.5 MG tablet Take 2 tablets by mouth daily. 07/24/2023 Melatonin 10 MG tablet Take 10 mg by mouth at night as needed (Sleep). methocarbamol (Robaxin) 750 MG tablet Take 1 tablet by mouth 4 times a day for 10 days. 40 tablet 09/27/2024 5 metoprolol succinate XL (Toprol-XL) 100 MG 24 [...] PCP name and Address: Megan Nuñez PA [address] [place] [address] [address] / [place] [address] Referring provider name and address: No referring provider defined for this encounter. Chief Concern, Brief History of Present Illness, and Hospital Course Barrington Gordon is a 53 y.o. male with PMH Prostate Cancer who presented to [facility] for surgical intervention.. They were taken [...] patch within 12 hoursor as directed by . lisinopril-hydroCHLOROthiazide 20-12.5 MG tablet Take 2 tablets [...] Your Medications These medications were sent to [facility] - [place], [place] - [address] [facility] [id number] acetaminophen 500 MG tablet ibuprofen 600 MG tablet lidocaine 5 % patch methocarbamol 750 MG tablet naloxone 4 mg/0.1 mL nasal spray oxyCODONE 5 MG immediate release tablet senna-docusate 8.6-50 MG tablet Discharge Diagnosis Medical Problems Active and Resolved Hospital Problems Hospital * (Principal) Prostate cancer (CMS/HCC) Post Discharge Instructions Follow-up on 10/[address] Patotn for catheter removal. Clinic staff will reach out to schedule appointment. If you do not receive any correspondence within a week, please call the Urology Clinic at [phone] Take all medications as prescribed. Continue to [...] with PMH Prostate Cancer who presented to [facility] for surgical intervention.. They were taken [...] AM EDT Operative Note Date: 09/27/24 Location: [place] OR Name: Barrington Gordon DOB: 1970, Diagnoses: Pre-op Diagnosis Prostate cancer (CMS/HCC) Post-op Diagnosis Prostate cancer (CMS/HCC) Procedure(s): Robotic radical prostatectomy Bilateral pelvic lymphadenectomy Attending Surgeon(s): * Vimal Patton - Primary [employer]vp [employer](s): * Hari Watson DO - Resident - [...] anteriorly on either side. The final 18 Sammar[place] Vega catheter was inserted and the balloon [...] agreement. - To OR for RALP Dayo Watson, DO PGY-3, Department of Urology Pager: [phone] [1] Past Medical History: Diagnosis Date Arthritis knees Benign prostatic hyperplasia Cancer (CMS/HCC) 2022 Dental disease missing teeth Hyperlipidemia Hypertension Prostate cancer ([facility]) [2] Past Surgical History: Procedure [...] card, photo ID, along with power of corporate associate attorney, guardianship or advanced directives if applicable Do [...] Upcoming Encounters Date Type Department Care Team ([facility] st Contact Info) Description 10/07/2024 12:15 PM EDT Office Visit Medical Office Building Urology [facility], [address] [place] [address] Vimal Patton MD [address] [place] [address] Pending Results Name Type Priority Associated Diagnoses Date /Time Surgical Pathology Exam Pathology and Cytology Routine Prostate cancer ([facility]/HCC) 09/27/2024 11:12 AM EDT Scheduled Orders Name Type Priority Associated Diagnoses Order Schedule Surgical Pathology Exam Pathology and Cytology Timed Prostate cancer ([facility]/HCC) Release Upon Ordering for 1 Occurrences starting 09/27/2024, 1 completed documented as of this encounter Procedures Procedure Name Priority Date/Time Associated Diagnosis Comments CBC W/O DIFFERENTIAL Routine 09/27/2024 1:13 PM EDT BASIC METABOLIC PANEL, PLASMA Routine 09/27/2024 12:06 PM EDT PA LAP,PROSTATECTOMY,RAD ICAL,W/NERVE SPARE,INCL ROBOTIC 09/27/2024 7:26 AM EDT Prostate cancer ([facility]) POCT GLUCOSE METER UNSOLICITED RESULTS Routine 09/27/2024 7:12 AM EDT TYPE AND SCREEN Routine 09/27/2024 6:59 AM EDT documented in this encounter Results * (ABNORMAL) CBC W/O Differential (09/27/2024 1:13 PM EDT) WBC Count 16.41(H) 3.70 - 10.30 10*3/uL LAB HEMATOLOGY METHOD 09/27/2024 1:44 PM EDT [facility] RBC Count 4.64 4.60 - 6.10 10*6/uL LAB HEMATOLOGY METHOD 09/27/2024 1:44 PM EDT [facility] HGB 13.9 13.7 - 17.5 g/dL LAB HEMATOLOGY METHOD 09/27/2024 1:44 PM EDT [facility] HCT 40.0 40.0 - 51.0 % LAB HEMATOLOGY METHOD 09/27/2024 1:44 PM EDT [facility] Platelet Count 269 155 - 369 10*3/uL LAB HEMATOLOGY METHOD 09/27/2024 1:44 PM EDT [facility] MCV 86 79 - 98 fL LAB HEMATOLOGY METHOD 09/27/2024 1:44 PM EDT [facility] MCH 30.0 26.0 - 32.0 pg LAB HEMATOLOGY METHOD 09/27/2024 1:44 PM EDT [facility] MCHC 34.8 30.7 - 35.5 g/dL LAB HEMATOLOGY METHOD 09/27/2024 1:44 PM EDT [facility] RDW 12.8 11.5 - 14.5 % LAB HEMATOLOGY METHOD 09/27/2024 1:44 PM EDT [facility] MPV 10.4 8.8 - 12.5 fL LAB HEMATOLOGY METHOD 09/27/2024 1:44 PM EDT [facility] nRBC 0.0 <=0.0 per 100 WBCs LAB HEMATOLOGY METHOD 09/27/2024 1:44 PM EDT [facility] Blood Venous blood specimen / Unknown Venipuncture / Unknown 09/27/2024 1:13 PM EDT 09/27/2024 1:23 PM EDT us Vimal Patton MD LAB BLOOD ORDERABLES Final Result [facility] [address] [place] [address] * (ABNORMAL) Basic metabolic panel (09/27/2024 12:06 PM EDT) Glucose, Plasma 169(H) 74 - 99 mg/dL 09/27/2024 1:13 PM EDT [facility] BUN, Plasma 16 7 - 21 mg/dL 09/27/2024 1:13 PM EDT [facility] Creatinine, Plasma 0.93 0.70 - 1.20 mg/dL 09/27/2024 1:13 PM EDT [facility] BUN/Creatinine Ratio 17 09/27/2024 1:13 PM EDT [facility] Sodium, Plasma 138 136 - 145 mmol/L 09/27/2024 1:13 PM EDT [facility] Potassium, Plasma 3.6 3.6 - 4.9 mmol/L 09/27/2024 1:13 PM EDT [facility] Chloride, Plasma 103 97 - 107 mmol/L 09/27/2024 1:13 PM EDT [facility] CO2, Plasma 25 22 - 29 mmol/L 09/27/2024 1:13 PM EDT [facility] Anion Gap 10 6 - 16 mmol/L 09/27/2024 1:13 PM EDT [facility] Total Calcium, Plasma 9.0 8.9 - 10.2 mg/dL 09/27/2024 1:13 PM EDT [facility] eGFRcr 97.0 mL/min/1.7 3m*2 09/27/2024 1:13 PM EDT [facility] Comment:Reported eGFRcr in m L/min/1.73m2 is based the CKD-EPI 2020 equation that does not use a race coefficient. Blood Venous blood specimen / Unknown Venipuncture / Unknown 09/27/2024 12:06 PM EDT 09/27/2024 12:44 PM EDT us Vimal Patton MD LAB BLOOD ORDERABLES Final Result [facility] [address] [place] [address] * (ABNORMAL) POCT glucose meter (09/27/2024 7:12 AM EDT) Pathologist [facility] POCT Glucose 138(H) 74 - 99 mg/dL 09/27/2024 7:13 AM EDT [facility] Comment:Accuracy of a glucos e [...] Comment 09/27/2024 7:13 AM EDT HEALTHCARE LAB Bankruptcy Law Specialist ID Keily Swanson 09/28/19 7:13 AM EDT HEALTHCARE LAB Device ID [id number] 09/27/2024 7:13 AM EDT HEALTHCARE LAB Specimen Type POC Venous 09/27/2024 7:13 AM EDT HEALTHCARE LAB Blood Venous blood specimen / Unknown 09/27/2024 7:12 AM EDT 09/27/2024 7:13 AM EDT Vimal Patton MD LAB POINT OF CARE T EST DOCKED DEVICE UNSOLICITED RESULTS Final Result Performing Organization Address City/[facility] Co de Phone Number HEALTHCARE LAB [address] [place] [address] * Type and Screen (09/27/2024 6:59 AM EDT) ABO/Rh O Positive 09/27/2024 5:59 AM EDT [facility]LOOD BANK Antibody Screen Negative 09/27/2024 5:59 AM EDT BLOOD BANK Specimen Expiration 09/30/2024 23:59 09/27/2024 5:59 AM EDT BLOOD BANK Blood Venous blood specimen / Unknown Venipuncture / Unknown 09/27/2024 6:59 AM EDT 09/27/2024 7:13 AM EDT Vimal Patton MD LAB BLOOD BANK TEST ORDERAB LES Final Result Performing Organization Address City/[facility] de Phone Number BLOOD BANK [address] [place] [address] documented in this encounter Visit Diagnoses Diagnosis Prostate cancer (CMS/HCC)- Primary Malignant neoplasm of prostate Prostate cancer (CMS/HCC) Malignant neoplasm of prostate [...] on Mon09/27/24 at 1236, Until Mon09/27/24 at 2014, Routine, severe pain, Recovery(Phase II-Outpatient)/On Unit(Inpatient) Given [...] on Mon09/27/24 at 0558, Until Mon09/27/24 at 2014, Routine, Holding - Preprocedure, line care documented [...] documented as of this encounter Care Teams Labeling Specialist Relationship Specialty Start Date End Date Megan Nuñez PA [address] [place] [address] [address] [place] [address] PCP - General 08/08/23 documented as of this encounter
--- OUTSIDE RECORDS SUMMARY | 2024-10-01 18:37 | XMS_ITS | Encounter Summary ---
Author Organization Healthcare Address [address] [place] [address] Care Team Providers Care Tongue And Quarter Stitcher Name Role Phone Megan Nuñez Primary Care Provider [phone] Encounter Details Date Type Department Care Team (Late st Contact Info) Description 06/03/2024 Orders Only External Location [address] [place] [address] Provider, External Social History Tobacco Use Types Packs/Day Years Used Date Smoking Tobacco: Former Cigarettes Smokeless Tobacco: Never Alcohol Use Standard Drinks/Week Comments Not Currently 0 (1 standard drink = 0.6 oz pur e alcohol) PHQ-2 Answer Date Recorded Patient Health Questionnaire-2 Score 0 06/03/2024 PHQ-9 Answer Date Recorded Patient Health Questionnaire-9 Score 0 06/03/2024 Sex and Gender Information Value Date Recorded Sex Assigned at Male 06/30/2023 5:24 PM EDT Legal Sex Male 2:46 PM EDT Gender Identity Male 06/30/2023 5:24 PM EDT Sexual Orientation Straight 06/30/2023 5: 24 PM EDT documented as of this encounter Functional Status * Over the past 2 weeks, how often have you been bothered by any of the following problems? Question Answer Date of Assessment Author Little interest or pleasure in doing things Not at all 06/03/2024 10:58 AM Melvin Cruz Feeling down, depressed, or hopeless Not at all 06/03/2024 10:58 AM Melvin Cruz Patient Health Questionnaire -2 Score 0 06/03/2024 10:58 AM Melvin Cruz * Question Answer Date of Assessment Author Trouble falling or staying asleep, or sleeping too much Not at all 06/03/2024 10:58 AM Melvin Cruz Feeling tired or having paige le energy Not at all 06/03/2024 10:58 AM Melvin Cruz Poor appetite or overeating Not at all 06/03/2024 10 :58 AM Melvin Cruz Feeling bad about yourself - or that you are a failure or have let yourself or your family down Not at all 06/03/2024 10:58 AM Melvin Tuttle Trouble concentrating on thi ngs, such as reading the newspaper or watching television Not at all 06/03/2024 10:58 AM Melvin Cruz Moving or speaking so slowly that other people could have noticed? Or the opposite - being so fidgety or restless that you have been moving around a lot more than usual. Not at all 06/03/2024 10:58 AM Melvin Cruz Thoughts that you would be b eulogio off or hurting yourself in some way Not at all 06/03/2024 10:58 AM Melvin Cruz Patient Health Questionnaire -9 Score 0 06/03/2024 10:58 AM Melvin Cruz * If you checked off any problems on this questionnaire so far, Question Answer Date of Assessment Author How difficult have these problems made it for you to do your work, take care of things at home, or get along with other people? Not difficult at all 06/03/2024 10:58 AM Melvin Cruz documented as of this encounter Plan of Treatment Upcoming Encounters Date Type Department Care Team ([facility] st Contact Info) Description 10/07/2024 12:15 PM EDT Office Visit Medical Office Building Urology [address] [facility], [address] [place] [address] Vimal Patton MD [id number] [place] [address] documented as of this encounter Procedures Procedure Name Priority Date/Time Associated Diagnosis Comments POC ULTRASOUND 06/03/2024 documented in this encounter Results * POC Imaging (06/03/2024) Anatomical Region Laterality Modality Pelvis Other 06/03/2024 us External Provider IMG POINT OF CARE ULTRASOUND F inal Result documented in this encounter Visit Diagnoses Not on filedocumented in this encounter Additional Health Concerns Assessment Noted Time PHQ-9 Depression Total Score: 0 06/04/19 25 10:58 AM EST A fall risk assessment has been complete d for the patient 05/06/2024 2:08 PM EST A Body Mass Index follow-up plan has been documented for the patient 06/03/2024 4:52 PM EST documented as of this encounter Care Teams Tongue And Quarter Stitcher Relationship Specialty Start Date End Date Megan Nuñez PA [facility] [address] [place] [address] PCP - General 08/08/23 documented as of this encounter
--- OUTSIDE RECORDS SUMMARY | 2024-10-01 18:37 | XMS_ITS | Data Portability ---
Author Organization EVAN KENNY Asencio [facility] CLOSED Address [address] [facility] [address] [address] [place] [address] Care Team Providers Care Store Receiving Clerk Name Role Phone IOANA HARRIS Referring Provider Assessment Encounter Date Assessment Date Assessment LastModified by Organization Details LastModified Time 07/15/2022 07/15/2022 We discussed the significance of elevated PSA. I explained that an elevated PSA does not necessarily mean the presence of prostate cancer, but that it should be further investigated with either a prostate ultrasound and biopsy or a repeat PSA. I explain the significance of a rising PSA, and the fact that there is not necessarily a certain value that would be considered normal in the face of an rising PSA. We discussed possible etiologies such as prostate cancer, infection, inflammation, benign prostatic hyperplasia. We discussed the option for prostate biopsy to rule out prostate cancer. Patient voices understanding. The risks, benefits, alternatives to procedure were discussed with the patient. Patient desires empiric antibiotics for potential prostatitis with recheck of PSA in approximately 1 month. Not available 07/17/2022 12:59:46 08/12/2022 08/12/2022 PSA has risen, l ow percent free PSA. Concerning for risk of prostate cancer. Recommend transrectal ultrasound needle biopsy of prostate. [email or web address] Not available 08/14/2022 13:17:21 09/15/2022 09/15/2022 SURGERY DATE: 09/15/2022 PREOPERATIVE DIAGNOSIS: Elevated PSA POSTOPERATIVE DIAGNOSIS: Elevated PSA PROCEDURE: 1. Transrectal ultrasound prostate, 2. Ultrasound guidance for needle injection of local analgesia, 3. Transrectal ultrasound guided needle biopsy of prostate SURGEON: Billy Swanson MD ANESTHESIA: Local ESTIMATED BLOOD LOSS: <2 ml COMPLICATIONS: None. SPECIMENS: A total of 12 prostate biopsies were obtained from 6 locations - right apex, right mid gland, right base, left apex, left mid gland, left base INDICATIONS: Elevated PSA OPERATIVE NOTE: Patient was correctly identified in the preoperative holding area. Informed consent was obtained. He is taken to the operating room and positioned in lateral decubitus knee tuck position. All pressure points padded. Timeout procedure completed. He had taken oral antibiotics. Transrectal ultrasonography performed showing prostate width of 48.2 mm, height of 24.2 mm, length of 41.8 mm for prostatic volume of 25.5 cm with a PSA density of 0.20 based upon a PSA of 5.17. Transrectal ultrasound guidance for needle injection of local analgesia was performed at the prostate and seminal vesicle junction bilaterally and the prostate apex. Once this was allowed to take effect transrectal ultrasound needle biopsy of the prostate was performed in the above-mentioned locations. Once adequate specimens had been obtained from all locations the procedure was then completed. Transrectal ultrasound was removed and patient was taken to the recovery room. DISPOSITION: The patient tolerated the procedure well. He was taken to the recovery room in stable condition. He will be discharged home with instructions for outpatient follow up. Not available 09/15/2022 09:49:38 Plan of Treatment Reminders Order Date Submit Date Provider Last Modified By Organization Details Last Modified Time Details Appointments None recorded. Lab urinalysis panel, auto 2022 023 4 [facility] With [facility], [address] [place] [address] , [facility], [place], [address], 3 13:18:04 PSA, total + free, serum or plasma 2022 023 [facility], [address] [place] [address], [address], 3 15:30:01 Referral physical therapist referral 2017 018 [email or web address] Not available 8 09:55:26 Procedures None recorded. Surgeries prostate needle biopsy (SURG) 2022 023 [email or web address] Professional Charges, [address] [facility], [place], [address], 3 16:10:26 Imaging XR, lumbosacra l spine, 2 or 3 view, bending only 2017 018 [facility], [address] [place], [address], 8 12:20:36 MRI, lumbar spine, w/o contrast 2017 018 [facility], [address] [place], [address], 8 15:31:31 Medication Orders Cipro 500 mg [address] [facility], [address], [address], 3 13:17:17 levofloxac in 500 mg tablet [address] [facility], [address], [address], 3 12:56:41 allopurino l 300 mg tablet 2017 018 [facility] [id number], [address] [place] [address], [address], 8 10:34:05 Patient TargetsNo targets recorded. Patient Instructions Encounter Date Encounter Id Patient Instructions Last Modified By Organization Details Last Modified Time 06/29/2017 [id number] neck pain: care instructions smoberly Not available 07/05/2017 10:31:44 diarrhea: care instructions smoberly Not available 07/05/2017 10:31:44 healthy upper back: exercises smoberly Not available 07/05/2017 10:31:44 back care and preventing injuries: care instructions smoberly Not available 07/05/2017 10:31:44 getting back to normal after low back pain: care instructions smoberly Not available 07/05/2017 10:31:44 learning about relief for back pain smoberly Not available 07/05/2017 10:31:44 When You Want to Lose Weight: Care Instructions smoberly Not available 07/05/2017 10:31:44 08/12/2022 [id number] learning about healthy weight [email or web address] Not available 08/12/2022 13:18:04 Reason for Referral Referring Physician: Billy Starkey, Neurosurgery, Encounter Date: 06/27/2017 Results Created Date Observation Date Name Description Value Unit Range Abnormal Flag Note LastModifiedBy Organization Detail LastModifiedTime 06/17/19 18 06/16/2017 C react dain prote in, QN, serum or plasm a C reactive protein 0.23 mg/dL 0.00-0 .50 normal KWAME NTRAT IONS OF < 1 MG/DL EXCLU DE MANY ACUTE INFLA MMATO RY DISEA SES, BUT DO NOT SPECI FICAL LY EXCLU DE INFLA MMATO RY PROCE SSES. ELEVA RIKA KWAME NTRAT IONS OF < 5 MG/DL IN ACUTE DISEA SE OCCUR IN THE PRESE NCE OF SLIGH T TO MODER ATE INFLA MMATO RY PROCE SSES. VALUE S > 5 MG/DL INDIC ATE HIGH AND EXTEN SIVE INFLA MMATO RY ACTIV ITY. Not Available [facility] [address] [place], [address], 06/16/2017 12:26:46 06/17/19 18 06/16/2017 uric acid, serum or plasm a uric acid 7.4 mg/dL 4.0-7. 6 normal Not Available [facility] [address] [place], [address], 06/16/2017 12:26:47 06/17/19 18 06/16/2017 TSH, serum or plasm a TSH 0.958 uIU/m L 0.290- 5.500 normal Not Available [facility] [address] [place], [address], 06/16/2017 12:32:06 06/17/19 18 06/16/2017 T3, total , serum T3, total 140.3 NG/dL 80.0-2 00.0 normal Not Available [facility] [address] [place] [address], [address], 06/16/2017 12:35:26 06/17/19 18 06/16/2017 T4, total , serum T4 (thyroxine) 7.17 ug/dL 4.50-1 1.70 normal Not Available [facility] [address] [place] [address], [address], 06/16/2017 12:35:27 06/17/19 18 06/16/2017 hepat itis (A+B+ C) panel , serum hepatitis B surface Ag NON-RE ACTIVE non-re active normal Not Available [facility] [address] [place] [address], [address], 06/19/2017 13:36:13 06/17/19 18 06/19/2017 hepat itis (A+B+ C) panel , serum hepatitis A Ab, IgM NON-RE ACTIVE non-re active normal TEST PERFO RMED AT: [facility] [address] [place] [address] RICO Rahman MD Not Available [facility] [address] [place] [address], [address], 06/19/2017 13:36:13 06/17/19 18 06/19/2017 hepat itis (A+B+ C) panel , serum hepatitis B core Ab,IgM NON-RE ACTIVE non-re active normal TEST PERFO RMED AT: [facility] [address] [place] [address] RICO Rahman MD Not Available [facility] [address] [place] [address], [address], 06/19/2017 13:36:13 06/17/19 18 06/19/2017 hepat itis (A+B+ C) panel , serum hepatitis C Ab NON-RE ACTIVE non-re active normal Not Available [facility] [address] [place] [address], [address], 06/19/2017 13:36:13 06/17/19 18 06/19/2017 hepat itis (A+B+ C) panel , serum hcab cutoff 0.02 <1.00 normal TEST PERFO RMED AT: [facility] [address] [place] [address] RICO Rahman MD Not Available [facility] [address] [place] [address], [address], 06/19/2017 13:36:13 06/17/19 18 06/16/2017 vitam in B12, serum vitamin B12 363 pg/mL 232-12 45 normal Not Available [facility] [address] [place] [address], [address], 06/16/2017 13:14:08 06/17/19 18 06/16/2017 vitam in D, 25-hy droxy , total , serum vitamin D 25-oh, total 38 NG/mL >=30 NG/mL normal Not Available [facility] [address] [place] [address], [address], 06/16/2017 13:14:28 06/17/19 18 06/18/2017 ccp (cycl ic citru llina rika pepti de) iga+i gg, serum anti-ccp <16 units normal Refer ence Range Negat dain: <20 Weak Posit dain: 20-39 Moder ate Posit dain: 40-59 Stron g Posit dain: >59 TEST PERFO RMED AT: [facility] [address] [place] [address] RICO Rahman MD Not Available [facility] [address] [place] [address], [address], 06/18/2017 17:15:36 06/17/19 18 06/22/2017 infla mmato ry bowel disea se Ab panel , serum sacch.cerevi siae Ab,IgG <20.0 U normal Refer ence Range : <=20 NEGAT DAIN 20.1- 29.9 EQUIV OCAL >=30 POSIT DAIN Antib odies to Sacch aromy javan cerev isiae are found in appro ximat milena 75% of patie nts with Crohn 's disea se, 15% of patie nts with ulcer ative colit is, and 5% of the healt hy popul ation . High antib la titer s incre ase the likel ihood of disea se, espec ially Crohn 's disea se, and are assoc iated with more aggre ssive disea se. As the infla mmati on in Crohn 's disea se is focus ed at the gut mucos a, most patie nts have IgA antib odies to S cerev isiae and half of these also have IgG antib odies . A minor ity of patie nts have only IgG antib odies to S cerev isiae . Not Available [facility] [address] [place] [address], [place], [address], 06/22/2017 01:10:30 06/17/19 18 06/22/2017 infla mmato ry bowel disea se Ab panel , serum sacch.cerevi siae Ab,IgA <20.0 U normal Refer ence Range : <=20. 0 NEGAT DAIN 20.1- 24.9 EQUIV OCAL >=25. 0 POSIT DAIN Antib odies to Sacch aromy javan cerev isiae are found in appro ximat milena 75% of patie nts with Crohn 's disea se, 15% of patie nts with ulcer ative colit is, and 5% of the healt hy popul ation . High antib la titer s incre ase the likel ihood of disea se, espec ially Crohn 's disea se, and are assoc iated with more aggre ssive disea se. As the infla mmati on in Crohn 's disea se is focus ed at the gut mucos a, most patie nts have IgA antib odies to S cerev isiae and half of these also have IgG antib odies . A minor ity of patie nts have only IgG antib odies to S cerev isiae . TEST PERFO RMED AT: [facility] [address] [place] [address] Meche GAONA,PHD ,GENNY Not Available [facility] [address] [place], [address], 06/22/2017 01:10:30 06/17/19 18 06/22/2017 infla mmato ry bowel disea se Ab panel , serum anca screen NEGATI VE negati ve normal ANCA Scree n inclu marcos evalu ation for p-ANC A, c-ANC A and atypi criss p-ANC A. A posit dain ANCA scree n refle xes to titer and esequiel rn(s) , e.g., cytop lasmi c esequiel rn (c-AN CA), perin uclea r esequiel rn (p-AN CA), or atypi criss p-ANC A esequiel rn. c-ANC A and p-ANC A are obser karthik in vascu litis , where as atypi criss p-ANC A is obser karthik in IBD (Infl ammat ory Bowel Disea se). Atypi criss p-ANC A is detec rika in about 55% to 80% of patie nts with ulcer ative colit is but only 5% to 25% of patie nts with Crohn 's disea se. Not Available [facility] [place], [address], 06/22/2017 01:10:30 06/17/19 18 06/22/2017 infla mmato ry bowel disea se Ab panel , serum myeloperoxid ase Ab <1.0 ai <1.0 normal <1.0 AI No Antib la Detec rika > or = 1.0 AI Antib la Detec rika Autoa ntibo dies to myelo perox idase (MPO) are commo nly assoc iated with the follo wing small -vess el vascu litid es: micro scopi c polya ngiit is, polya rteri tis nodos a, Churg -Stra uss syndr ome, necro tizin g and cresc entic glome rulon ephri tis and occas ional ly granu lomat osis with polya ngiit is (Jasper SOSA er's) . The perin uclea isis iraheta rn, (p-AN CA) is based large ly on autoa ntibo dy to myelo perox idase which serve s as the prima ry antig en. These autoa ntibo dies are prese nt in activ e disea se. Not Available [facility] [address] [place], [address], 06/22/2017 01:10:30 06/17/19 18 06/22/2017 infla mmato ry bowel disea se Ab panel , serum proteinase-3 Ab <1.0 ai <1.0 normal <1.0 AI No Antib la Detec rika > or = 1.0 AI Antib la Detec rika Autoa ntibo dies to prote inase -3 (ND-3 ) are accep rika as puma cteri stic for granu lomat osis with polya ngiit is (SHEILA, Jasper er's) , and are detec table in 95% of the histo logic ally prove n cases . The cytop lasrachid iraheta rn, (c-AN BRAULIO), is based large ly on autoa ntibo dy to ND-3 which serve s as the prima ry antig en. These autoa ntibo dies are prese nt in activ e disea se. Not Available [facility] [address] [place], [address], 06/22/2017 01:10:30 06/17/19 18 06/19/2017 thyro id panel , serum thyroid peroxidase Ab 1 IU/mL <9 normal TEST PERFO RMED AT: [facility] [place] [address] [place] [address] RICO Rahman MD Not Available [facility] [address] [place], [address], 06/19/2017 13:36:15 06/17/19 18 06/19/2017 thyro id panel , serum thyroglobuli n Ab <1 IU/mL < or = 1 normal TEST PERFO RMED AT: [facility] [place] [address] [place] [address] RICO Rahman MD Not Available [facility] [address] [place] [address], [address], 06/19/2017 13:36:15 08/13/19 23 08/12/2022 PSA, TOTAL AND FREE prostate specific Ag 5.170 NG/mL 0.000- 3.100 high The % Free PSA ratio is usefu l as an aid in disti nguis kiley prost ate cance r from benig n prost ate condi tions in men 50 years or older who have a digit al recta l exam that is not suspi cious for prost ate cance r and a Total PSA value in the range of 4.0 - 10.0. Pleas e notif y the lab at 258-4 150 withi n 24 hrs if add-o n testi ng of Free PSA is ken ed. Test metho d is based on WHO-s tanda rdize d calib ratio n using the Fadia Fabiola E801 prakash zer. PSA resul ts by diffe rent test proce dures canno t be direc tly krishna red with one anoth er. . Not Available [facility] [address] [place] [address], [address], 08/12/2022 15:30:01 08/13/19 23 08/12/2022 PSA, TOTAL AND FREE free PSA 0.41 NG/mL normal Test metho d is based on WHO-s tanda rdize d calib ratio n using the Fadia E801 prakash zer. Free PSA resul ts by diffe rent test proce dures canno t be direc tly krishna red with one anoth er. Not Available [facility] [address] [place] [address], [address], 08/12/2022 15:30:01 08/13/19 23 08/12/2022 PSA, TOTAL AND FREE % free PSA 8 % normal ____ PSA ng/mL % FREE PSA Proba bilit y of Prost ate Cance r % ____ Less than 4.00 N/A 17% 4.0 - 10.0 0-10 56% 10-15 28% 15-20 20% 20-25 16% Great er than 25 8% Great er than 10.0 N/A 49% ____ Not Available [facility] [address] [place], [address], 08/12/2022 15:30:01 08/13/19 23 08/12/2022 urina lysis panel , auto Unknown Analyte Clean Catch Not Available [facility] With [address] [place] [address] [facility], [place], [address], 08/12/2022 13:11:11 08/13/19 23 08/12/2022 urina lysis panel , auto Unknown Analyte Yellow Not Available [facility] With [address] [place] [address] [facility], [place], [address], 08/12/2022 13:11:11 08/13/19 23 08/12/2022 urina lysis panel , auto Unknown Analyte Clear Not Available [facility] With [address] [place] [address], [address], 08/12/2022 13:11:11 08/13/19 23 08/12/2022 urina lysis panel , auto Unknown Analyte 1.010 Not Available [facility] With [address], [place], [address], 08/12/2022 13:11:11 08/13/19 23 08/12/2022 urina lysis panel , auto Unknown Analyte 1.003- 1.035 Not Available [facility] With [address], [place], [address], 08/12/2022 13:11:11 08/13/19 23 08/12/2022 urina lysis panel , auto Unknown Analyte 7.0 Not Available [facility] With [address], [place], [address], 08/12/2022 13:11:11 08/13/19 23 08/12/2022 urina lysis panel , auto Unknown Analyte 5.0-8. 0 Not Available [facility] With [place] [address], [place], [address], 08/12/2022 13:11:11 08/13/19 23 08/12/2022 urina lysis panel , auto Unknown Analyte Negati ve Not Available [facility] With [place] [address], [place], [address], 08/12/2022 13:11:11 08/13/19 23 08/12/2022 urina lysis panel , auto Unknown Analyte Negati ve Not Available [facility] With [address], [place], [address], 08/12/2022 13:11:11 08/13/19 23 08/12/2022 urina lysis panel , auto Unknown Analyte Negati ve Not Available [facility] With [address], [place], [address], 08/12/2022 13:11:11 08/13/19 23 08/12/2022 urina lysis panel , auto Unknown Analyte Negati ve Not Available [facility] [place] [address], [place], [address], 08/12/2022 13:11:11 08/13/1908/12/2022 urina lysis panel , auto Unknown Analyte Negati ve Not Available [facility] With [address], [place], [address], 08/12/2022 13:11:11 08/13/19 23 08/12/2022 urina lysis panel , auto Unknown Analyte Negati ve Not Available [facility] With [place] [address], [place], [address], 08/12/2022 13:11:11 08/13/19 23 08/12/2022 urina lysis panel , auto Unknown Analyte Normal Not Available [facility] With [place] [address], [place], [address], 08/12/2022 13:11:11 08/13/19 23 08/12/2022 urina lysis panel , auto Unknown Analyte Normal Not Available [facility] With [place] [address], [place], [address], 08/12/2022 13:11:11 08/13/19 23 08/12/2022 urina lysis panel , auto Unknown Analyte Negati ve Not Available [facility] [place] [address], [place], [address], 08/12/2022 13:11:11 08/13/19 23 08/12/2022 urina lysis panel , auto Unknown Analyte Negati ve Not Available [facility] With [address], [place], [address], 08/12/2022 13:11:11 08/13/19 23 08/12/2022 urina lysis panel , auto Unknown Analyte 1 mg/dl Not Available [facility] [place] [address], [place], [address], 08/12/2022 13:11:11 08/13/19 23 08/12/2022 urina lysis panel , auto Unknown Analyte Normal 1 mg/dl Not Available [facility] [place] [address], [place], [address], 08/12/2022 13:11:11 08/13/19 23 08/12/2022 urina lysis panel , auto Unknown Analyte Negati ve Not Available [facility] [place] [address], [place], [address], 08/12/2022 13:11:11 08/13/19 23 08/12/2022 urina lysis panel , auto Unknown Analyte Negati ve Not Available [facility] [place] [address], [place], [address], 08/12/2022 13:11:11 08/13/19 23 08/12/2022 urina lysis panel , auto Unknown Analyte Negati ve Not Available [facility] [place] [address], [place], [address], 08/12/2022 13:11:11 08/13/19 08/12/2022 urina lysis panel , auto Unknown Analyte Negati ve Not Available [facility] With [address], [place], [address], 08/12/2022 13:11:11 09/16/1909/15/2022 SURGI CRISS surgical SEE BELOW abnormal Depar tment of Patho logy Surgi criss Patho logy Repor t NAME: RAMSES WOLFE PATH. :SS-2 45 Copy to: Diagn osis: Prost ate needl e core biops ies: A) Left base: Benig n prost atic tissu e. B) Left mid: Benig n prost atic tissu e. C) Left apex: Benig n prost atic tissu e. D) Right base: Benig n prost atic tissu e. E) Right mid: Benig n prost atic tissu e. 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 SOURC E OF SPECI MEN: PROST ATE BIOPS Y, A.) LEFT BASE & B.) LEFT MID PROST ATE BIOPS Y, C.) LEFT APEX & D.) RIGHT BASE PROST ATE BIOPS Y, E.) RIGHT MID & F.) RIGHT APEX CLINI CRISS INFOR MATIO N: R97.2 0 ELEVA RIKA PSA / LEVEL - 5.17 Gross Descr iptio n: Recei karthik in forma latasha label ed with the patie nt's name are six separ ate speci mens desig nated as prost ate biops y. All tissu e consi sts of armstrong cylin ders 0.[address] If tissu e from two sites is place d in one casse tte, the latte r site is inked black ; e.g. if tissu es from site A and B are in one casse tte, the tissu es from site B are inked . SECTI ON LENGT H IN CENTI METER S A) Left Base 1.2, 1.6 cm (2 cores ) B) Left Mid 1.8, 2.0 cm (2 cores ) C) Left [place] 1.3, 1.4 cm (2 cores ) D) Right Base 1.1, 1.7 cm (2 cores ) E) Right Mid 0.2, 1.4, 1.5 cm (3 cores ) F) Right [place] 1.4, 1.7 cm (2 cores ) MS 09/15 12:31 PM Micro scopi c Descr iptio n: A micro scopi c exami natio n has been perfo rmed and the resul t(s) are as noted above . ('C') There is a focus of crowd ed gland s. Stain s for high molec ular weigh t cytok erati n and p63 demon strat e posit dain stain ing for basal cells in the focus in clarisa marshall g out carci noma. The immun ohist ochem ical stain for alpha -meth ylacy l-CoA racem ase (p504 S) is negat dain. ('F') The diagn osis of carci noma is suppo rted by the failu re of immun opero xidas e stain ing for high molec ular weigh t cytok erati n and p63 to demon strat e basal cells in the atypi criss gland s. Also favor ing the diagn osis of cance r is that stain s for racem ase (a marke r prefe renphil chanel expre ssed in prost ate cance r) are posit dain. KRISTA LEE M.D. [facility] Out Date: 09/17 16:51 Page 1 of 1 Not Available [facility] [address] [place] [address], [address], 09/17/2022 16:52:12 06/17/19 18 06/16/2017 XR, thora cic spine , [address] [address] Patimylene t Name: RAMSES ROMANDeepthi disla : [phone] Patimylene t Orderi ng Provid er: JEFRY Loyd EXAM DATE: 2017 EXAM: XR THORAC IC AP/LAT CLINIC AL INFORM ATION: Back pain. IMAGES PROVID ED: AP, and latera l views of the thorac ic spine. COMPAR REHANA: None. FINDIN GS: Curvat ure, alignm ent, verteb ral body height s and disc spaces are normal . Small osteop hytes are seen at multip le levels . No radiog raphic eviden ce of injury is noted. IMPRES JULIO: Minima l degene rative change s of the thorac ic spine. Interp reted By: Karen Cohen MD [facility] onical ly Signed By: Karen Cohen MD on 018 12:14 PM [email or web address] [facility] [address] [place] [address], [phone], 06/16/2017 13:45:02 06/17/19 18 06/16/2017 XR, lumbo sacra l spine , [facility] [address] [place] [address] Patimylene t Name: RAMSES disla : [phone] Patimylene disla Orderi ng Provid er: JEFRY Loyd EXAM DATE: 2017 EXAM: XR LUMBAR AP/LAT CLINIC AL INFORM ATION: Back pain. IMAGES PROVID ED: AP, latera l and coned down views of the lumbar spine. COMPAR REHANA: None. FINDIN GS: Curvat ure, alignm ent, verteb ral body height s are normal . Disc space reduct ion is seen at L4-S1 levels . There is grade 1 retrol isthes is of L3 over L4 and grade 1 evan listhe sis of L4 over L5. Degene rative change s are seen in the facet joints . IMPRES JULIO: Degene rative change s of the lumbar spine. Interp reted By: Karen Cohen MD [facility] onical ly Signed By: Karen Cohen MD on 018 12:22 PM [email or web address] [facility] [address] [place], [address], 06/16/2017 13:45:03 06/17/19 18 06/16/2017 XR, chest , 2 view [place] [facility] [address] [place] [address] Patimylene t Name: RAMSES disla : [phone] Grisel disla Orderi ng Provid er: JEFRY CORTES Y EXAM DATE: 2017 EXAM: XR CHEST PA/LAT CLINIC AL INFORM ATION: Cough. IMAGES PROVID ED: PA and latera l views of the chest. COMPAR REHANA: None. FINDIN GS: Heart size is within normal limits . Lung feldman are clear. IMPRES JULIO: No acute cardio pulmon rafael change s. Interp reted By: Karen Cohen MD Electr onical ly Signed By: Karen Cohen MD on 018 12:[email or web address] [place] [address], [phone], 06/16/2017 13:45:02 06/17/19 18 06/16/2017 XR, cervi criss spine , 2 or 3 view [place] [facility] [address] [place] [address], [place] [address] Patimylene t Name: RAMSES disla : [phone] Grisel disla Orderi ng Provid er: JEFRY CORTES Y EXAM DATE: 2017 EXAM: XR CERVIC AL AP/LAT CLINIC AL INFORM ATION: Neck pain IMAGES PROVID ED: AP, latera l, open mouth and submen marge views of the cervic al spine COMPAR REHANA: None. FINDIN GS: Curvat ure, alignm ent, verteb ral body height s and disc spaces are normal . No radiog raphic eviden ce of injury is seen. IMPRES JULIO: Normal radiog raphs of the cervic al spine. Interp reted By: Karen Cohen MD Electr onical ly Signed By: Karen Cohen MD on 1:02 PM [email or web address] [facility] [address] [place] [address], [phone], 06/16/2017 13:45:02 06/28/19 18 06/27/2017 XR, lumbo sacra l spine , 2 or 3 view, bendi ng only [place] [facility] [address] [place] [address] [place] [address] Grisel disla Name: RAMSES disla : [phone] Grisel disla Orderi ng Provid er: BENNY RODRIGUEZ PS EXAM DATE: 2017 EXAM: XR LUMBAR SPINE FLEX/E XT ONLY CLINIC AL INFORM ATION: Back pain. IMAGES PROVID ED: Latera l views of the lumbar spine in flexio n and extens ion. COMPAR REHANA: None. FINDIN GS: Verteb ral body height s are normal . Multil evel disc space reduct ion is seen with anteri or and latera l osteop hytes. There is grade 1 evan listhe sis of L4 over L5. It measur es 10 mm in flexio n and 10 mm in extens ion. There is grade 1 retrol isthes is of L5 over S1. It measur es 5 mm in flexio n and in extens ion. Degene rative change s are seen in the facet joints .. No radiog raphic eviden ce of injury is noted. IMPRES JULIO: Degene rative change s of the lumbar spine. No instab ility. Interp reted By: Karen Cohen MD Electr onical ly Signed By: Karen Cohen MD on 018 12:15 PM [facility] [address] [place] [address], [phone], 06/27/2017 20:47:02 07/01/19 18 06/30/2017 MRI, lumba r spine , w/o contr ast [place] [facility] [address] [place] [address] [place] [address] Grisel t Name: RAMSES disla : [phone] Grisel disla Orderi ng Provid er: NICOLENYDIA RODRIGUEZ PS EXAM DATE: 2017 EXAM: MR LUMBAR W/O CONTRA ST HISTOR Y: 46-yea r-old male with low back pain and parest hesia in the legs and groin. COMPAR REHANA: Radiog raph dated 018 FINDIN GS: There is mild engineering officer ior listhe sis of L5 relati ve to L4 and S1. The lumbar spine is otherw ise normal in alignm ent. There is no eviden ce of fractu re. There is modera te anteri or margin al osteop hytic spurri ng. No pathol ogic lesion is identi fied in the lumbar spine. There are multip le small Schmor l's nodes. The conus medull hans is normal in appear ance at the L1 level. T11-T1 2 throug h L1-L2: There are mild disc bulges and mild endpla te spurri ng. There is no centra l canal stenos is. There is no neural forami nal stenos is. L2-L3: There is a broad- based disc protru julio and mild endpla te spurri ng. There is mild centra l canal stenos is. There is mild bilate ral neural forami nal stenos is. L3-L4: There is a broad- based disc protru julio, mild endpla te spurri ng, and mild facet arthro gordon. There is mild centra l canal stenos is. There is mild bilate ral neural forami nal stenos is. L4-L5: There is a broad- based disc protru julio, mild endpla te spurri ng, and modera te facet arthro gordon. There is severe centra l canal stenos is. There is modera te bilate ral neural forami nal stenos is. L5-S1: There is a diffus e disc protru julio, mild endpla te spurri ng, and minima l facet arthro gordon. There is mild centra l canal stenos is. There is modera te bilate ral neural forami nal stenos is. There is dilata tion of the left renal parenc hyma and renal pelvis . This repres ents hydron ephros is. There is atroph y of the left renal parenc hyma. IMPRES JULIO: 1. There is severe centra l canal stenos is at L4-L5, and mild centra l canal narrow ing at L2-L3 and L3-L4. 2. There is modera te bilate ral neural forami nal stenos is at L4-L5 and L5-S1. 3. There is chroni c left hydron ephros is with atroph y of the left renal parenc hyma. Interp reted By: Patricia chapin MD Electr onical ly Signed By: Patricia chapin MD on 018 3:26 PM [email or web address] [facility] Radiology [address], [address], 07/21/2017 16:42:43 Result Notes Documentation Provider Name and Address Organization Details Recorded Time Xr, Lumbosacral Spine, 2 Or 3 View, Bending Only : [place] [address] Patient Name: RAMSES GORDON Patient : 1970 Patient Ordering Provider: RAFITA LEÓN EXAM DATE: 06/27/2017 EXAM: XR LUMBAR SPINE FLEX/EXT ONLY CLINICAL INFORMATION: Back pain. IMAGES PROVIDED: Lateral views of the lumbar spine in flexion and extension. COMPARISON: None. FINDINGS: Vertebral body heights are normal. Multilevel disc space reduction is seen with anterior and lateral osteophytes. There is grade 1 anterolisthesis of L4 over L5. It measures 10 mm in flexion and 10 mm in extension. There is grade 1 retrolisthesis of L5 over S1. It measures 5 mm in flexion and in extension. Degenerative changes are seen in the facet joints.. No radiographic evidence of injury is noted. IMPRESSION: Degenerative changes of the lumbar spine. No instability. Interpreted By: Martín Cohen MD TA LEÓN MD [address] [place] [address], [phone], [facility] 06/27/2017 16:42:35 Mri, Lumbar Spine, W/o Contrast : [address] [address] Patient Name: RAMSES GORDON Patient : 1970 Patient Ordering Provider: RAFITA LEÓN EXAM DATE: 06/30/2017 EXAM: MR LUMBAR W/O CONTRAST HISTORY: 46-year-old male with low back pain and paresthesia in the legs and groin. COMPARISON: Radiograph dated 06/27/2017 FINDINGS: There is mild posterior listhesis of L5 relative to L4 and S1. The lumbar spine is otherwise normal in alignment. There is no evidence of fracture. There is moderate anterior marginal osteophytic spurring. No pathologic lesion is identified in the lumbar spine. There are multiple small Schmorl's nodes. The conus medullaris is normal in appearance at the L1 level. T11-T12 through L1-L2: There are mild disc bulges and mild endplate spurring. There is no central canal stenosis. There is no neural foraminal stenosis. L2-L3: There is a broad-based disc protrusion and mild endplate spurring. There is mild central canal stenosis. There is mild bilateral neural foraminal stenosis. L3-L4: There is a broad-based disc protrusion, mild endplate spurring, and mild facet arthropathy. There is mild central canal stenosis. There is mild bilateral neural foraminal stenosis. L4-L5: There is a broad-based disc protrusion, mild endplate spurring, and moderate facet arthropathy. There is severe central canal stenosis. There is moderate bilateral neural foraminal stenosis. L5-S1: There is a diffuse disc protrusion, mild endplate spurring, and minimal facet arthropathy. There is mild central canal stenosis. There is moderate bilateral neural foraminal stenosis. There is dilatation of the left renal parenchyma and renal pelvis. This represents hydronephrosis. There is atrophy of the left renal parenchyma. IMPRESSION: 1. There is severe central canal stenosis at L4-L5, and mild central canal narrowing at L2-L3 and L3-L4. 2. There is moderate bilateral neural foraminal stenosis at L4-L5 and L5-S1. 3. There is chronic left hydronephrosis with atrophy of the left renal parenchyma. Interpreted By: Talat Kirby MD A BENDER PA-C [address] [place] [address], [phone], [facility] 07/21/2017 16:42:43 Problems Name Problem SNOMED Code Status Onset Date Resolution Date Notes Provider Name and Address Organization Details Recorded Time Pain of multiple joints 37092795 Active 018 JOANA PEARCE, INVENTORY PLANNER [address] [place], [address] [facility] 8 10:35:20 Problem Notes None recorded. Procedures Surgical History Date Name Laterality Status Provider Name and Address Organization Details Recorded Time 06/28/19 18 Interpretation completed BILLY STARKEY PA-C [address] [place], [phone] 06/27/2017 13:04:52 Tonsillectomy completed Yanet Mcnulty [facility] 07/15/2022 13:33:24 Imaging Results None recorded. Procedure Notes None recorded. Medical Equipment None Reported. Allergies Allergen ID Allergen Name Allergen Category Reaction Reaction Severity Criticality Documentation Date Start Date Code Code System Note Provider Name and Address Organization Details Recorded Time 435345 Product containin g penicilli n (product) medicatio n rash Not available Not available 06/16/2017 13809 8001 SNOMED July Steve [facility] 8 09:50:47 Medications Name Sig Start Date Stop Date Status Note LastModified by Organization Details LastModified Time lisinopril 20 mg tablet Take 1 tablet every day by oral route. active Not Available Not Available No t Available allopurinol 100 mg tablet Take 1 tablet every day by oral route. active Not Available Not Available No t Available gemfibrozil 600 mg tablet Take 1 tablet twice a day by oral route. active Not Available Not Available No t Available Cipro 500 mg tablet Take 1 tablet every 12 hours by oral route for 3 days. 2022 active Not Available Not Available Not Avai lable allopurinol 300 mg tablet Take 1 tablet every day by oral route. 2017 active Not Available Not Available Not Avai lable levofloxacin 500 mg tablet Take 1 tablet every 24 hours by oral route for 21 days. 08/12 completed Not Available Not Available Not Available colchicine 0.6 mg tablet Take 1 tablet twice a day by oral route. 2017 active Not Available Not Available Not Avai lable amlodipine active Not Available Not Av ailable Not Available bisoprolol fumarate active Not Available Not Available Not Available Vitals Date Recorded Body height Body mass index (BMI) Body weight Systolic blood pressure Diastolic blood pressure Provider Name and Address Organization Details Last Updated DateTime 06/27/2017 182.88 cm 34.2 kg/m2 827543.2 8 g 132 mm[Hg] 80 mm[Hg] Laura Vega [facility] 8 09:31:01 Date Recorded Body height Body mass index (BMI) Body weight Respiratory rate Heart rate Systolic blood pressure Diastolic blood pressure Provider Name and Address Organization Details Last Updated DateTime 8 182.88 cm 33.5 kg/m2 298095. 32 g 18 /min 72 /min 117 mm[Hg] 68 mm[Hg] Kristy Kavin [facility] 8 14:54:00 Date Recorded Body height Body mass index (BMI) Body weight Provider Name and Address Organization Details Last Updated DateTime 07/15/2022 180.34 cm 36.3 kg/m2 677105.02 g Yanet Mcnulty [facility] 07/15/2022 13:32:05 Date Recorded Body height Body mass index (BMI) Body weight Provider Name and Address Organization Details Last Updated DateTime 08/12/2022 180.34 cm 36.3 kg/m2 568944.02 g Demetria Alvarez [facility] 08/12/2022 12:56:27 Social History Question Answer Notes LastModified by Organizat ion Details LastModified Time Tobacco Smoking Status Former Smoker July [facility] 06/16/2017 09:52:54 What Was The Date Of Your Most Recent Tobacco Screening? 08/12/2022 [email or web address] Information not available 08/12/2022 What Is Your Relationship Status? Information not available 07/15/2022 Sex: Male Functional Status Question Answer Note LastModified by Organization D etails LastModified Time What is your level of alcohol consumption? None Information not available 07/15/2022 Mental Status None recorded. Family History Relationship Description Onset Age of this Age Resolved Age Notes LastModified by Organization Details LastModified Time Mother Allergic rhinitis [email or web address] Not available 2017 09:52:32 Father Arthritis [email or web address] Not availab le 06/16/2017 09:52:44 Maternal Grandfather Malignant neoplasm of prostate [email or web address] Not available 13:32:40 Unspecified Relation Kidney disease [email or web address] Not available 13:32:51 Medical History Condition Response Emphysema N COPD N Arthritis Y Acid Reflux (GERD) N Rheumatoid Arthritis N Bleeding Disorder N Asthma N Diabetes N Heart Disease N Hypertension Y Past Encounters Encounter ID Performer Location Encounter Start Date Encounter Closed Date Diagnosis/Indication Diagnosis SNOMED-CT Code Diagnosis ICD10 Code Diagnosis Note [id number] JOANA PEARCE APRN RHEUMATOL [facility] [address] [place] [address] 06/16/2017 09:30:35 06/16/2017 12:44:36 Pain of multiple joints 24289989 M25.50 recurring joint pain and tenderness family h/o lupus with recurring back pain, tenderness with negative RF without synovitis or dactylitis today reported swollen joints, backs of the hands and wrists Diarrhea 78304846 R19.7 recurring reported diarrhea worsening fatigue and weakness will assess further ibd panel Fatigue 70875435 R53.83 worsening fatigue with family h/o thyroid issues will assess further tsh and thyroid antibodies panel Vitamin D deficiency 347 23372 E55.9 reported history of the same Vitamin 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 deficiency (non anemic) 39737405 E53.8 reported history of the same Low back pain 672493468 M54.5 recurring low back pain and tenderness without injury stiff and limited movment Thoracic back pain 04183 8004 M54.6 middle back pain worsening with stiff and limited movement Neck pain 35900880 M54.2 chronic and recurring limited rom Hyperuricemia 76223423 E 79.0 7.3 elevated along with recurring joint pain will start colchicine at 0.6 mg bid x 2 months Expiratory wheezing 9763 007 R06.2 right sided wheezing; rales in lower base [id number] BILLY STARKEY PA-C [facility] [address] [place] [address] 06/27/2017 08:34:23 06/27/2017 16:00:05 Spondylolisthesis 208392110 M43.10 46M with chronic low back pain with a mechanical component that causes bilateral leg pain and n/t. The patient had PT over 5 years ago, so I feel that it is reasonable to try it again. Given slip at L4-5 seen on xray and the mechanical nature of the patients symptoms, we need to check flex/ext xrays to assess for instabilit y. We should also check a MRI of the lumbar spine for any significan t nerve impingemen t. We will have the patient return to see how he responded to therapy and once he has the imaging completed. Pt agrees with this plan. [id number] JOANA PEARCE APRN RHEUMATOL OGY SB [address] [place] [address] 06/29/2017 14:02:40 06/29/2017 15:14:49 Pain of multiple joints 10567227 M25.50 recurring joint pain and tenderness family h/o lupus with recurring back pain, tenderness with negative RF without synovitis or dactylitis today reported swollen joints, backs of the hands and wrists with negative inflammato ry labs with elevated uric acid level and treatment with colcrys and allopurino l can f/u prn discussed and will have him f/u with his pcp Diarrhea 18476198 R19.7 recurring reported diarrhea worsening fatigue and weakness with negative ibd panel Fatigue 41500432 R53.83 worsening fatigue with family h/o thyroid issues with negative labs Vitamin D deficiency 347 33183 E55.9 reported history of the same normal findings Vitamin B1 2 deficiency (non anemic) 46666531 E53.8 reported history of the same stable labs today Low back pain 857404596 M54.5 recurring low back pain and tenderness without injury stiff and limited movement with negative hlab27; films indicate: will have him f/u with neurosurge ryDisc space reduction is seen at L4-S1 levels. There is grade 1retrolist hesis of L3 over L4 and grade 1 anterolist hesis of L4 overL5. Thoracic back pain 12724 8004 M54.6 middle back pain worsening with stiff and limited movement with normal films Neck pain 25711319 M54.2 chronic and recurring limited rom normal films Hyperuricemia 92891514 E 79.0 7.3 elevated along with recurring joint pain will start colchicine at 0.6 mg bid x 2 months needs allopurino l once daily 300 mg daily Expiratory wheezing 9763 007 R06.2 right sided wheezing; rales in lower base normal chest xray have him f/u with his pcp [id number] BILLY SWANSON MD [address] ,[address] [place] [address] 07/15/2022 12:25:15 07/18/2022 04:08:12 Prostate specific antigen above reference range 535920739 R97.20 Benign pro static hyperplasia with outflow obstruction 455354764 N40.1 [id number] BILLY SWANSON MD [address] [place] [address] 08/12/2022 12:42:34 08/12/2022 15:43:52 Prostate specific antigen above reference range 446939476 R97.20 Benign pro static hyperplasia with outflow obstruction 384839198 N40.1 [id number] BILLY SWANSON MD SURGERY SCHEDULE [address] [place] [address] 09/15/2022 06:52:32 09/15/2022 06:53:29 Health Concerns Section Related Observation LastModified by Organization Detai ls LastModified Time None Recorded Concern Status LastModified by Organization Details LastModified Time None Recorded Advance Directives Directive None Recorded Payers Insurance Date Sequence Insurance Name Policy Number Policy Glover Covered Member ID Glover Member ID Guarantor Name 09/28/2022 1 [place] [id number] July Gordon [id number] Ramses Gordon 08/10/2020 PAYMENT PLAN Ramses Gordon Notes Date Note Type Note Provider Name and Address Organization Details Recorded Time 06/27/2017 text/html 46M with chronic low back and bilateral leg pain that has became worse over the last several months. The patients back pain is constant. His leg pain is intermittent, and is typically brought on when he is standing/walking for >20 min. It travels down the posterior legs and his groin. They are equal in intensity. He feels like his calves cramp with this pain. He has associated numbness and tingling as well. He takes NSAIDs but also has a history of kidney disease. The NSAIDs do not seem to help him much. He has tried PT remotely. He had xrays prior to this appointment. He denies any urinary incontinence or difficulty emptying his bladder. 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 PSA trend listed below. He has family history of maternal grandfather having prostate carcinoma. He voids every 3 hours with nocturia 2-3 times nightly. He denies hesitancy. No hematuria or dysuria. PSA:April 2021-3.4January 2022-4.09 BILLY SWANSON MD [address] [place] [address], [phone], [facility] 07/17/2022 12:59:59 08/12/2022 text/html 51-year-old male in the office for my evaluation and for discussion of raised PSA. PSA trend listed below. He has family history of maternal grandfather having prostate carcinoma. He has finished empiric antibiotics since his last visit. PSA in April was 4.0. No hematuria. No dysuria. PSA:August 2022-5.17January 2022-4.09January 2021-3.4 BILLY SWANSON MD [address] [place] [address], [phone], [facility] 08/14/2022 13:17:35
--- OUTSIDE RECORDS SUMMARY | 2024-10-01 18:38 | XMS_ITS | Patient Health Record ---
[facility] Organization [facility] [address] [facility] [address] [place] [id number] Care Team Providers Care Boilermaker Ship Name Role Phone Keely Murray Primary Care Provider [phone] Mary James Unavailable [phone] Megan Nuñez Unavailable [phone] Allergies Allergen (clinical drug ingredient) Drug/Non Drug Allergy documented on EMR Reaction Allergy Type Onset Date Status Penicillin hives Drug Allergy Active Results Component Value Reference Range Notes Glucose (In-House) Reviewed date:11/21/2023 10:42:56 AM Interpretation:70 Performing Lab: Notes/Report: 70 blood glucose 70 74 - 106 mg/dL Glycohemoglobin A1c (in hous e) Reviewed date:11/21/2023 10:42:56 AM Interpretation:5.7 Performing Lab: Notes/Report: 5.7 glycohemoglobin 5.7% 5 - 6.5 % P-Comprehensive Metabolic Pa michelle (CMP) Reviewed date:11/21/2023 10:42:56 AM Interpretation:satisfactory Performing Lab: Notes/Report: Test performed by [facility], [employer] [facility] , [address], [place] [address] Cyrus Roca MD, Tugboat Engineer CLIA: [id number] Sodium 141 135-145 mmol/L Potassium 4.0 3.5-5.3 mmol/L Chloride 104 97-108 mmol/L CO2 28 22-32 mmol/L Glucose 120 65-99 mg/dL BUN 9 6-20 mg/dL Creatinine 0.90 0.70-1.30 mg/dL Calcium 9.9 8.6-10.4 mg/dL eGFR by Creatinine 101 >59 mL/min/1.73m2 Protein 6.6 6.0-8.3 g/dL Albumin 4.1 3.5-5.3 g/dL Alkaline Phosphatase 90 40-129 IU/L ALT (SGPT) 22 <5-55 IU/L AST (SGOT) 23 <5-46 IU/L Bilirubin, Total 0.4 <0.2-1.2 mg/dL A/G Ratio 1.6 1.1-2.5 P-Lipid Panel Reviewed date:11/21/2023 10:42:56 AM Interpretation:Normal Performing Lab: Notes/Report: Test performed by [facility], [address] , [address], [place] [address] Cyrus Roca MD, Tugboat Engineer CLIA: [id number] Cholesterol 132 <200 mg/dL Triglycerides 127 <150 mg/dL HDL Cholesterol 41 >39 mg/dL Cholesterol / HDL Ratio 3.22 0.00-4.99 Ratio Non-HDL Cholesterol 91 <130 mg/dL LDL Cholesterol (Calculation) 66 <130 mg/dL LDL Cholesterol Levels* Less than 100 mg/dL Optimal 100 to 129 mg/dL Near Optimal/ Above Optimal 130 to 159 mg/dL Borderline High 160 to 189 mg/dL High 190 mg/dL and above Very High * Categories as recommended by the 2004 ATPIII guidelines LDL/HDL Ratio 1.6 <3.3 Ratio LDL Cholesterol Patient History Test Date: 04/21/2023 LDL Results: 55 Units: mg/dL % Change: - Test Date: 11/20/2023 LDL Results: 66 Units: mg/dL % Change: +20% P-Microalbumin/Creatinine, R andom Urine Sample Reviewed date:11/21/2023 10:42:56 AM Interpretation:Normal Performing Lab: Notes/Report: Test performed by [facility] [address] [place] [address] , [place] [address] Cyrus Roca MD, Tugboat Engineer CLIA: [id number] Albumin/Creatinine Ratio, Urine 9 0-30 ug/mg Microalbumin, Urine, Random 0.5 Creatinine, Urine 54.0 P-Uric Acid Reviewed date:02/09/2024 08:54:14 AM Interpretation: Performing Lab: Notes/Report: Test performed by [facility] [address] [place] [address] , [address], [place] [address] Cyrus Roca MD, Tugboat Engineer CLIA: [id number] Uric Acid 9.0 3.4-8.0 mg/dL P-Uric Acid Reviewed date:02/28/2024 08:53:40 AM Interpretation: Performing Lab: Notes/Report: Test performed by [facility] [address] [place] [address] , [address], [place] [address] Cyrus Roca MD, Tugboat Engineer CLIA: [id number] Uric Acid 6.0 3.4-8.0 mg/dL Urinalysis - Inhouse Reviewed date:07/29/2024 04:28:07 PM Interpretation: Performing Lab: Notes/Report: Color/Clarity yellow/clear Leuk Neg Nitrite Neg Urobili 3.2 Protein Neg pH 6.0 Blood Trace-Intact Sp. Gr. 1.010 Ketone Neg Bili Neg Gluc Neg P-Sed Rate (ESR) Reviewed date:01/19/2024 08:50:54 AM Interpretation: Performing Lab: Notes/Report: Test performed by [facility] [address] [place] [address] , [address], [place] [address] Cyrus Roca MD, Tugboat Engineer CLIA: [id number] Erythrocyte Sedimentation Rate (ESR), Automated 18 <21 mm/hr P-Uric Acid Reviewed date:01/19/2024 08:50:54 AM Interpretation: Performing Lab: Notes/Report: Test performed by [facility] [address] [place] [address] , [address], [place] [address] Cyrus Roca MD, Tugboat Engineer CLIA: [id number] Uric Acid 8.6 3.4-8.0 mg/dL Reason For Referral No Information Medications Medication SIG (Take, Route, Frequency, Duration) Notes Start Date End Date Status Allopurinol 200 MG 1 tablet Orally Once a day; Duration: 90 days Active Rosuvastatin Calcium 10 MG 1 tab(s) oral ly once a day; Duration: 90 days Active EQ All Day Allergy Relief 10 MG Take 1 tablet by mouth once daily; Duration: 30 Active CoQ-10 100 MG 1 cap(s) orally once a day; Duration: 30 day(s) 01/28/2022 Active Flomax 0.4 MG 1 capsule Orally Onc e a day; Duration: 30 day(s) Active Metoprolol Succinate ER 100 MG 1 tablet Orally Once a day 06/17/2024 Active Lisinopril-hydroCHLOROthiaz tod 20-12.5 MG 2 tablet Orally Once a day Active Colchicine 0.6 MG 1 tablet Orally once daily Active Immunizations Vaccine Route Administration Date Status Comme nts xFluzone (6mos and older)-trivalent Unknown 01/10/2021 Administered Tetanus Tdap-Adacel (over 7yrs) IM Intramuscular 03/28/2019 Administered Shingrix Unknown 12/16/2022 Administered Shingrix Unknown 02/22/2023 Administered Fluzone PF Quad (6-35 months) Unknown 02/10/2022 Administered COVID 19 Pfizer Unknown 07/18/2020 Administered COVID 19 Pfizer Unknown 08/08/2020 Administered COVID 19 Pfizer Unknown 04/30/2021 Administered Problems Problem Type SNOMED Code ICD Code Onset Dates Problem Status W/U Status Risk Notes Problem Essential hypertension (04926411) Essential hypertension (I10) Active confirmed Problem Hypertriglyceridemia (529849954) Hypertriglyceridemia (E78.1) Active confirmed Problem Sciatic nerve lesion (518341461) Piriformis syndrome of right side (G57.01) Active confirmed Problem Morbid obesity (disorder) (991884374) Morbid (severe) obesity due to excess calories (E66.01) Active confirmed Problem Erectile dysfunction (disorder) (706654249) Erectile dysfunction, unspecified erectile dysfunction type (N52.9) Active confirmed Problem Insomnia (568164297) Insomnia, u nspecified type (G47.00) Active confirmed Problem Dyslipidemia (510930019) Dyslipidemia (E78.5) Active confirmed Problem Skin sensation disturbance (78027824) Paresthesias in right hand (R20.2) Active confirmed Problem Impaired fasting glycaemia (726887752) IFG (impaired fasting glucose) (R73.01) Active confirmed Problem Gout (16405192) Acute gout of ri ght foot, unspecified cause (M10.9) Active confirmed Problem Allergic rhinitis (42766739) Allergic rhinitis, unspecified seasonality, unspecified trigger (J30.9) Active confirmed Problem Chronic gouty arthritis (23943693) Chronic idiopathic gout (M1A.00X0) Active confirmed Vital Signs Heart Rate 64 /min 09/16/2024 Blood pressure diastolic 82 mm Hg 09/16/2024 Height 72 in 09/16/2024 Blood pressure systolic 122 mm Hg 09/16/2024 Weight 260.4 lbs 09/16/2024 BMI 35.31 kg/m2 09/16/2024 Encounters Encounter Location Date Provider Diagnosis [facility] [address] [facility] [address] [place], [place] [id number] 11/20/2023 James Chapman Essential hypertensi on I10 ; Dyslipidemia E78.5 and IFG (impaired fasting glucose) R73.01 [facility] [address] [facility] [address] [place], [place] [id number] 01/18/2024 Megan Crowdy Acute gout of right foot, unspecified cause M10.9 [facility] [address] [facility] [address] [place], [place] [id number] 02/08/2024 Megan Crowdy Acute gout of right foot, unspecified cause M10.9 [facility] [address] [place] [id number] 02/23/2024 Megan Crowdy Acute gout of right foot, unspecified cause M10.9 and Hyperuricemia E79.0 [facility] [address] [place], [place] [id number] 05/20/2024 James Chapman Essential hypertensi on I10 [facility] [address] [place], [place] [id number] 05/27/2024 James Chapman Essential hypertensi on I10 [facility] [address] [place], [place] [id number] 06/17/2024 James Chapman Essential hypertensi on I10 ; Dyslipidemia E78.5 and Chronic idiopathic gout M1A.00X0 [facility] [address] [place], [place] [id number] 07/29/2024 James Chapman 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 [facility] [address] [place], [place] [id number] 09/16/2024 James Chapman Essential hypertensi on I10 [facility] [address] [place] [id number] 01/19/2024 Megan Crowdy [facility] [address] [place] [id number] 02/09/2024 Megan Crowdy [facility] [address] [place] [id number] 02/28/2024 Megan Crowdy Acute gout of right foot, unspecified cause M10.9 [facility] [address] [place], [place] [id number] 05/24/2024 James Chapman Assessments Encounter Date Diagnosis (ICD Code) Assessment Notes Treatment Notes Treatment Clinical Notes Section Notes 11/20/2023 Essential hypertension (ICD-10 - I10) 11/20/2023 Dyslipidemia (ICD-10 - E78.5) 02/23/2024 Acute gout of right foot, unspecified cause (ICD-10 - M10.9) 02/28/2024 Acute gout of right foot, unspecified cause (ICD-10 - M10.9) 05/20/2024 Essential hypertension (ICD-10 - I10) Not at goal today 05/27/2024 Essential hypertension (ICD-10 - I10) 06/17/2024 Essential hypertension (ICD-10 - I10) 06/17/2024 Dyslipidemia (ICD-10 - E78.5) 01/18/2024 Acute gout of right foot, unspecified cause (ICD-10 - M10.9) He states he stopped his allopurinol and is not sure why. Will start on colchicine and get labs. Will recheck labs in 3 weeks after taking the colchicine and if uric acid is normal, will start back on allopurinol along with the cholchicine. 02/08/2024 Acute gout of right foot, unspecified cause (ICD-10 - M10.9) Will continue colchicine for 2 weeks while starting the allopurinol and can then stop the colchicine and recheck a uric acid in 3 weeks. 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 (ICD-10 - Z02.4) 09/16/2024 Essential hypertension (ICD-10 - I10) 02/23/2024 Hyperuricemia (ICD-10 - E79.0) 06/17/2024 Chronic idiopathic gout (ICD-10 - M1A.00X0) 11/20/2023 IFG (impaired fasting glucose) (ICD-10 - R73.01) Plan Of Treatment Next Appt Details Provider Name:James Paz ry, 11/25/2024 10:00:00 AM, [address], [place], [id number], Insurance Providers Payer Name Payer Address Payer Phone Subscriber Number Group Number Insured Name Patient Relationship to Insured Coverage Start Date Coverage End Date [employer] [address] [place] [address] [id number] RAMSES LICEA Self - patient is the insured Medications Administered Medication Instructions Date of Administration Dosage Notes Depo- Medrol 40 mg/ml 04/29/2022 1.5 mL Depo- Medrol 40 mg/ml 04/21/2023 1.5 mL Medical (General) History Medical History History ICD Code Hypertension Hyperlipidemia Hypertriglyceridemia prostate cancer - Dx: 2022, followed at , watchful waiting Impaired fasting glucose Surgical History Surgery Date(Month/Year) Tonsillectomy/Adnoidectomy 1981 6 Teeth Cut Out 2014 Colonoscopy 2016 Upper GI Scope 2016
--- OUTSIDE RECORDS SUMMARY | 2024-10-01 18:38 | XMS_ITS | Encounter Summary ---
Author Organization Healthcare Address [address] [place] [address] Care Team Providers Care Medicare Nurse Name Role Phone Megan Nuñez Primary Care Provider [phone] Encounter Details Date Type Department Care Team (Late Contact Info) Description 09/01/2023 Lab Requisition [facility] [address] [place] [address] Vimal Patton MD [address] [address] Elevated prostate specific antigen (PSA) Social History Tobacco Use Types Packs/Day Years Used Date Smoking Tobacco: Never Assessed Sex and Gender Information Value Date Recorded Sex Assigned at Male 06/30/2023 5:24 PM EDT Legal Sex Male 2:46 PM EDT Gender Identity Male 06/30/2023 5:24 PM EDT Sexual Orientation Straight 06/30/2023 5: 24 PM EDT documented as of this encounter Plan of Treatment Upcoming Encounters Date Type Department Care Team (Late Contact Info) Description 10/07/2024 12:15 PM EDT Office Visit Medical Office Building Urology [address] [facility], [address] [place] [address] Vimal Patton MD [address] [address] documented as of this encounter Procedures Procedure Name Priority Date/Time Associated Diagnosis Comments SURGICAL PATHOLOGY CONSULT Routine 09/01/2023 10:52 AM EDT Elevated prostate specific antigen (PSA) documented in this encounter Results * Surgical Pathology Consult (09/01/2023 10:52 AM EDT) Case Report Sugical Pathology Consult Case: [id number] Authorizing Provider: Vimal Patton MD Collected: 09/01/2023 1052 Ordering Location: [facility] Lab Received: 09/01/2023 1052 Pathologist: Kusum Serrano MD Specimen: Prostate, [id number] 09/01/2023 11:14 AM EDT [facility] Final Diagnosis PROSTATE, RIGHT APEX, NEEDLE CORE BIOPSY (OUTSIDE , COLLECTED 09/15/22): -PROSTATIC ADENOCARCINOMA, PATRICK'S 3+3 (GRADE GROUP 1), INVOLVING 20% OF ONE OF TWO CORES. 09/01/2023 11:14 AM EDT [facility] at 1114 EDT Clinical Information R97.20 - Elevated prostate specific antigen (PSA) [ICD-10-CM] 09/01/2023 11:14 AM EDT [email or web address] Gross Description A. [id number] Received along with a corresponding pathology report from [facility] are 2 slides labeled outside case: [id number] collected on 09/15/2022. 09/01/2023 11:14 AM EDT [facility] Tissue Prostate / Unknown 10:52 AM EDT 09/01/2023 10:52 AM EDT us Vimal Patton MD LAB PATHOLOGY ORDERABLES Fi nal Result [facility] [address] [place] [address] documented in this encounter Visit Diagnoses Diagnosis Elevated prostate specific antigen (PSA) documented in this encounter Care Teams Medicare Nurse Relationship Specialty Start Date End Date Megan Nuñez PA [address] [facility] [place] [address] [place] [address] PCP - General 08/08/23 documented as of this encounter
--- OUTSIDE RECORDS SUMMARY | 2024-10-01 18:38 | XMS_ITS | Encounter Summary ---
Author Organization Healthcare Address [address] [place] [address] Care Team Providers Care Marine Electronics Technician Name Role Phone Megan Nuñez Primary Care Provider [phone] Encounter Details Date Type Department Care Team (Latest Contact Info) Description 09/27/2024 Travel Social History Tobacco Use Types Packs/Day Years [...] Swanson RN documented as of this encounter Plan of Treatment Upcoming Encounters Date Type Department Care Team (Late st Contact Info) Description 10/07/2024 12:15 PM EDT Office Visit Medical Office Building Urology [address] [facility], [address] [place] [address] Vimal Patton MD [address] [place] [address] documented as of this encounter Visit Diagnoses Not on filedocumented [...] documented as of this encounter Care Teams Marine Electronics Technician Relationship Specialty Start Date End Date Megan Nuñez PA [address] [place] [address] [address] [place] [address] PCP - General 08/08/23 documented as of this encounter
--- OUTSIDE RECORDS SUMMARY | 2024-10-01 18:38 | XMS_ITS | Clinical Summary ---
Author Organization [facility] Address [address] [place] [address] Care Team Providers Care Edging Machine Feeder Name Role Phone Megan Nuñez Primary Care Provider [phone] Allergies Active Allergy Reactions Criticality Noted Date Comments Amoxicillin Hives,Rash Medium 09/23/2024 Erythromycin Base Hives,Rash Medium 09/03/2023 Penicillins Hives,Rash Medium 09/03/2023 Medications rosuvastatin (Crestor) 10 MG tablet Take 1 tablet by mouth daily. 4 Active lisinopril-hydr oCHLOROthiazide 20-12.5 MG tablet Take 2 tablets by mouth daily. 4 Active tamsulosin (Flomax) 0.4 MG 24 hr capsule Take 1 capsule by mouth daily. Active allopurinol (Zyloprim) 100 MG tablet Take 2 tablets by mouth daily. 5 Active colchicine (Colcrys) 0.6 MG tablet Take 1 tablet by mouth as needed (Gout). Active co-enzyme Q-10 30 MG capsule Take 1 capsule by mouth daily. Active metoprolol succinate XL (Toprol-XL) 100 MG 24 hr tablet Take 1 tablet by mouth daily. Do not crush or chew. Active multivitamin (Theragran-M) tablet Take 1 tablet by mouth daily. Active omega-3 (Fish Oil) 1000 MG capsule Take 1 capsule by mouth daily. Active cholecalciferol (Vitamin D-3) 25 MCG (1000 UT) tablet Take 1 tablet by mouth daily. Active aspirin 81 MG EC tablet Take 1 tablet by mouth as needed for headaches. Active Melatonin 10 MG tablet Take 10 mg by mouth at night as needed (Sleep). Active Potassium 99 MG tablet Take 1 tablet by mouth daily. Active oxyCODONE (Roxicodone) 5 MG immediate release tablet Take 1 tablet by mouth every 6 hours as needed for severe pain for up to 8 doses. 8 tablet 5 Active senna-docusate (Abi-Colace) 8.6-50 MG tablet Take 1 tablet by mouth daily. Do not take if you are having diarrhea 30 tablet 5 10/28/19 25 Active lidocaine (Lidoderm) 5 % patch Apply 1 patch topically daily over 12 hours for 10 days. Remove & discard patch within 12 hours or as directed by MD. 10 patch 5 10/08/19 25 Active methocarbamol (Robaxin) 750 MG tablet Take 1 tablet by mouth 4 times a day for 10 days. 40 tablet 5 10/08/19 25 Active ibuprofen 600 MG tablet Take 1 tablet by mouth every 6 hours as needed for mild pain for up to 30 doses. 30 tablet 5 Active acetaminophen (Tylenol) 500 MG tablet Take 2 tablets by mouth every 6 hours as needed for pain. 60 tablet 5 Active naloxone (Narcan) 4 mg/0.1 mL nasal spray 1. Give 1 spray in nostril for no/slow breathing or cannot wake after opioid use 2. Call 911 3. Repeat in other nostril if symptoms continue 1 each 5 Active loratadine (Claritin) 10 MG tablet 1 tablet (10 mg). 4 09/24/19 25 Discontinu ed(Entered in Error) amLODIPine (Katerzia) 1 MG/ML suspension oral suspension 09/24/19 Discontinu ed(Entered in Error) lisinopril 10 MG tablet Take 2 tablets by mouth daily. 5 09/24/19 Discontinu ed(Entered in Error) metoprolol tartrate (Lopressor) 50 MG tablet Take 1 tablet by mouth daily. 09/24/19 25 Discontinu ed(Entered in Error) Active Problems Problem Noted Date Diagnosed Date Prostate cancer 08/06/2024 Obesity (BMI 35.0-39.9 without comorbidity) 07/02 Severe obesity (BMI 35.0-39.9) with comorbidity 07/17/2024 Encounters Date Type Department Care Team Description 09/30/[address] [facility] Urology [address], [address] [place] [address] Vimal Patton MD 09/27/2024 7:45 AM EDT - 09/27/2024 12:25 PM EDT Surgery [facility] [address] [place] [address] Vimal Patton MD PROSTATECTOMY, RADICAL, ROBOT-ASSISTED [[id number] (CPT )] 09/27/2024 7:36 AM EDT Anesthesia Event [facility] [address] [place] [address] Aric Dan, Vernon Hinkle, DO 09/27/2024 5:26 AM EDT - 09/27/2024 6:10 PM EDT Hospital Encounter [facility] RO[facility] [address] [place] [address] Vimal Patton MD Prostate cancer (CMS/HCC) Discharge Disposition: Home or Self Care 09/27/2024 Orders Only External Location [address] [place] [address] Provider, External 09/27/2024 Travel 09/26/2024 Travel 08/07/[address] [facility] Urology [address] [address] Vimal Patton MD 07/31/[address] [facility] Urology [address] [address] Vimal Patton MD HCN - Patient Message (Surgery scheduling ) 07/17/2024 2:00 PM EDT - 07/17/2024 11:59 PM EDT Hospital Encounter [facility] Radiation [address] [facility] [id number] [place] [address] Urban Velázquez MD Malignant neoplasm of prostate (CMS/HCC) (Primary Dx) Discharge Disposition: Still a Patient 07/17/2024 1:15 PM EDT Office Visit [facility] [address] [place] [address] Vimal Patton MD Prostate cancer (CMS/HCC) (Primary Dx) 07/17/2024 Telephone [facility] [address] [facility]. [id number] [place] [address] Domenico Nagy MD 07/17/2024 Travel 07/16/2024 Travel 07/08/2024 2:26 PM EDT - 07/08/2024 11:59 PM EDT Hospital Encounter [facility] H Radiology [address] [facility], [place] [address] Discharge Disposition: Home or Self Care 07/08/2024 2:24 PM EDT - 07/08/2024 2:25 PM EDT Hospital Encounter [facility] Radiology [address] [facility], [place] [address] Prostate cancer (CMS/HCC) Discharge Disposition: Home or Self Care 07/08/2024 Travel 07/07/2024 Travel from Last 3 Months Family History Medical History Relation Name Comments Heart disease Father Emery Gordon Hypertension Father Emery Gordon Cancer Maternal Grandfather Roelmylene Trent Kidney disease Maternal Grandfather Roelmylene Fuentesmp Prostate cancer Maternal Grandfather Roel Trent Cancer Maternal Grandmother Hypertension Mother Bruno Gordon Chronic Leukemia Paternal Grandmother Relation Name Status Comments Father Emery Gordon Alive Maternal Grandfather Roel Trent Alive Maternal Grandmother Mother Bruno Gordon Alive Paternal Grandmother Social History Tobacco Use Types Packs/Day Years [...] Orientation Straight 06/30/2023 5: 24 PM EDT Last Filed Vital Signs Vital Sign Reading [...] Mass Index 35.26 09/27/2024 7:05 AM EDT Plan of Treatment Upcoming Encounters Date Type Department Care Team (Late st Contact Info) Description 10/07/2024 12:15 PM EDT Office Visit Medical Office Building Urology [address] [facility], [address] [place] [address] Vimal Patton MD [address] [place] [address] Health Maintenance Due Date Last Done Comments [facility]-HIV Screening 1968 [facility]-Hepatitis C Screening 1968 [facility]-Infant/Child/Adol SDOH Screenings 1968 [facility]- SDOH Screenings 1986 [facility]-Adult SDOH Screenings 1986 [facility]-Hepatitis B Vaccines (1 of 3 - 19+ 3-dose series) 10/20/1987 [facility]-Pneumococcal Vaccine: 50+ Years (1 of 2 - PCV) 10/20/1987 CT Colonography 2013 Colonoscopy 2013 FIT-DNA 2013 FIT 2013 FOBT 2013 Sigmoidoscopy 2013 [facility]-Colorectal Cancer Screening 2013 [id number] Vaccine ( season) 2023 02/10/2022, 04/30/2021, 08/08/2020, Additional history exists [facility]-Influenza Vaccine (#1) 12/02/202412/09, 12/16/2022, 02/10/2022, Additional history exists [facility]-Depression Screening 07/17/2025 07/17/2024, 03/0 06/2024 [facility]-DTaP,Tdap,and Td Vaccines (2 - Td or Tdap) 03/28/2029 03/28/2019 [facility]-Zoster Vaccines Completed 02/22/2023, [facility]-Obesity Intervention Completed 025, 06/03/2024, 05/06/2024, Additional history exists HPV Vaccines Aged Out No longer eligi ble based on patient's age to complete this topic [facility]-HIB Vaccines Aged Out No longer e ligible based on patient's age to complete this topic [facility]-Hepatitis A Vaccines Aged Out No longer eligible based on patient's age to complete this topic [facility]-IPV Vaccines Aged Out No longer e ligible based on patient's age to complete this topic [facility]-Rotavirus Vaccines Aged Out No lo nger eligible based on patient's age to complete this topic Procedures Procedure Name Priority Date/Time Associated Diagnosis Comments CBC W/O DIFFERENTIAL Routine 09/27/2024 1:13 PM EDT BASIC METABOLIC PANEL, PLASMA Routine 09/27/2024 12:06 PM EDT PB POINT OF CARE IMAGING PLACEHOLDER Routine 09/27/2024 7:55 AM EDT PB ANESTHESIA PLACEHOLDER Routine 09/27/2024 7:52 AM EDT NH AN ELECTIVE ENDOTRACHEAL AIRWAY Routine 09/27/2024 7:52 AM EDT NH LAP,PROSTATECTOMY,RAD ICAL,W/NERVE SPARE,INCL ROBOTIC 09/27/2024 7:26 AM EDT Prostate cancer (CMS/HCC) POCT GLUCOSE METER UNSOLICITED RESULTS Routine 09/27/2024 7:12 AM EDT TYPE AND SCREEN Routine 09/27/2024 6:59 AM EDT POC ULTRASOUND 09/27/2024 PROSTATE SPECIFIC ANTIGEN, DIAGNOSTIC, SERUM Routine 07/17/2024 3:42 PM EDT Malignant neoplasm of prostate (CMS/HCC) PET/CT PSMA VERTEX TO THIGH Routine 07/08/2024 4:27 PM EDT Prostate cancer (CMS/HCC) from Last 3 Months Results * (ABNORMAL) CBC W/O Differential (09/27/2024 [...] [facility] [address] [place] [address] * (ABNORMAL) Basic metabolic panel (09/27/2024 12:06 [...] [facility] [address] [place] [address] * PB POINT OF CARE IMAGING PLACEHOLDER [...] monitoring: continuous pulse ox, heart rate and mechanical spreader operator Block type: TAP Laterality: left and right [...] Motley MD ANESTHESIA ORDERABLES Final Result * NH AN ELECTIVE ENDOTRACHEAL AIRWAY, PB ANESTHESIA PLACEHOLDER (09/27/2024 7:52 AM EDT) Narrative Aric Dan CRNA - 09/27/2024 7:52 AM EDT Aric Dan CRNA 09/27/2024 8:29 AM Airway Date/Time: 09/27/2024 7:52 AM Reason: elective Airway not difficult General Information and Staff Patient location during procedure: OR CUFF KNITTER: Aric Dan CRNA Performed: CUFF KNITTER Patient Condition Indications for airway management: anesthesia [...] Lloyd Tena MD ANESTHESIA ORDERABLES Final Result * (ABNORMAL) POCT glucose meter (09/27/2024 7:12 AM EDT) POCT Glucose 138(H) 74 - 99 mg/dL 09/27/2024 7:13 AM EDT [facility] Comment:Accuracy of a glucos e result [...] Comment 09/27/2024 7:13 AM EDT [facility]ALTH[facility]ARE LAB Board Filler ID Keily Swanson 09/28/19 7:13 AM EDT HEALTHCARE LAB Device ID [id number] 09/27/2024 7:13 AM EDT HEALTHCARE LAB Specimen Type POC Venous 09/27/2024 7:13 AM EDT HEALTHCARE LAB Blood Venous blood specimen / Unknown 09/27/2024 7:12 AM EDT 09/27/2024 7:13 AM EDT Vimal Patton MD LAB POINT OF CARE T EST DOCKED DEVICE UNSOLICITED RESULTS Final Result Performing Organization Address City/[facility]/ZIP Co de Phone Number HEALTHCARE LAB [address] [place] [address] * Type and Screen (09/27/2024 6:59 AM [...] ORDERAB LES Final Result Performing Organization Address City/[facility] Co de Phone Number BLOOD BANK [address] [place] [address], * POC Imaging (09/27/2024) Anatomical Region Laterality Modality Pelvis Other 09/27/2024 us External Provider IMG POINT OF CARE ULTRASOUND F inal Result * (ABNORMAL) PSA, diagnostic (07/17/2024 3:42 PM EDT) PSA, Diagnostic, Serum 16.00(H) 0.00 - 3.50 ng/mL 07/17/2024 4:43 PM EDT [facility] Blood Venous blood specimen / Unknown Venipuncture / Unknown 07/17/2024 3:42 PM EDT 07/17/2024 4:04 PM EDT Narrative [facility] - 07/17/2024 4:43 PM EDT Performed by [employer] electrochemiluminescent immunoassay which is standardized against the PSA Shai Reference Standard (WHO 96/670). Results obtained with different test methods or kits cannot be used interchangeably. us Urban Velázquez MD LAB BLOOD ORDERABLES Final Result [facility] [address] [place] [address] * PET/CT PSMA VERTEX TO THIGH (07/08/2024 4:27 PM EDT) Anatomical Region Laterality Modality Nuclear Medicine Impressions 07/09/2024 2:34 PM EDT 1. Focal radiotracer localization within the right prostatic mid gland and apex compatible with biopsy-proven adenocarcinoma. Low-grade posterior mid gland activity may represent benign hypertrophy or urinary bladder shine through artifact versus low-grade disease. 2. No radiotracer avid or suspicious jamie, visceral or osseous metastatic disease. 3. Severe left hydronephrosis and pelvocaliectasis with renal cortical thinning. CRITICAL RESULT: No. COMMUNICATION: Per this written report. By electronically signing this report, I, the attending physician, attest that I have personally reviewed the images/data for the above examination(s) and agree with the final edited report. Drafted by Edmund Covington MD on 07/09/2024 1:59 PM Final report signed by Poonam Hester on 07/09/2024 2:34 PM Narrative 07/09/2024 2:34 PM EDT CLINICAL INDICATION: 53 year-old male with history of prostate cancer, presenting for evaluation for treatment planning. PSA levels: 12.2 on 10/02/2023. TECHNIQUE: Radiopharmaceutical: 5.05 mCi of Ga-68 gozetotide (PSMA, Illuccix) administered intravenously at right antecubital fossa at 3:01 PM. Incubation interval: 50 minutes. Oral contrast: Not applicable. Positioning: Arms raised. PET/CT scanner: Siemens Biograph 40 mCT. PET/CT acquisition: [id number]. Standardized uptake value (SUV): Corrected for body weight only. CT: Low-dose, [id number], without intravenous contrast. TOTAL DLP (Dose Length Product): 1302.92 mGy.cm mGy*cm. COMPARISON/CORRELATION: No comparison.. No correlative imaging. FINDINGS: Technical quality: Diagnostic. Measurements: Unless otherwise specified, all SUVs refer to maximum value in the target (mSUV). CT linear measurements performed on axial images. FINDINGS: HEAD/NECK: There are no foci of abnormal radiotracer avidity. Symmetric, physiologic radiotracer distribution in the salivary glands. There are no pathologically enlarged cervical lymph nodes. The thyroid is normal. CHEST: There are no foci of abnormal radiotracer avidity. There are no pericardial or pleural effusions. There are no radiotracer avid or pathologically enlarged mediastinal or axillary lymph nodes. No pulmonary masses or suspicious nodules are evident on the low-dose CT component of the exam. ABDOMEN: There are no foci of abnormal radiotracer avidity. There are no radiotracer avid pelvic retroperitoneal lymph nodes. There is abnormal radiotracer-avidity in the prostate within the right mid gland and apex compatible with biopsy-proven adenocarcinoma. Possibly, there is low-grade activity present within the posterior right mid gland measuring max SUV 4.4 although, this could be urinary bladder shine through artifact or within the realm of prostatic hypertrophy versus low-grade disease (series 4, image 445). There is no ascites. Severe left hydronephrosis and pelvocaliectasis with renal cortical thinning. Unremarkable right kidney. Smooth liver contour. No focal radiotracer localization above the heterogenous uptake within the liver. Unremarkable spleen. Normal- appearing gallbladder, adrenal glands and pancreas. The small and large bowel are normal in caliber. Normal course and contour of the stomach and duodenum. MUSCULOSKELETAL: There are no foci of abnormal radiotracer-avidity. The low-dose CT does not demonstrate any lytic or blastic osseous lesions. Procedure Note Poonam Hester, DO - 07/09/2024 CLINICAL INDICATION: 53 year-old male with history of prostate cancer, presenting forevaluation for treatment planning. PSA levels: 12.2 on 10/02/2023. TECHNIQUE: Radiopharmaceutical: 5.05 mCi of Ga-68 gozetotide (PSMA, Illuccix)administered intravenously at right antecubital fossa at 3:01 PM. Incubation interval: 50 minutes. Oral contrast: Not applicable. Positioning: Arms raised. PET/CT scanner: Siemens Biograph 40 mCT. PET/CT acquisition: [id number]-ac-tks-thighs. Standardized uptake value (SUV): Corrected for body weight only. CT: Low-dose, [id number], without intravenous contrast. TOTAL DLP (Dose Length Product): 1302.92 mGy.cm mGy*cm. COMPARISON/CORRELATION: No comparison.. No correlative imaging. FINDINGS: Technical quality: Diagnostic. Measurements: Unless otherwise specified, all SUVs refer to maximum valuein the target (mSUV). CT linear measurements performed on axial images. FINDINGS: HEAD/NECK: There are no foci of abnormal radiotracer avidity. Symmetric, physiologic radiotracer distribution in the salivary glands. There are no pathologically enlarged cervical lymph nodes. The thyroid is normal. CHEST: There are no foci of abnormal radiotracer avidity. There are no pericardial or pleural effusions. There are no radiotracer avid or pathologically enlarged mediastinal oraxillary lymph nodes. No pulmonary masses or suspicious nodules are evident on the low-dose CTcomponent of the exam. ABDOMEN: There are no foci of abnormal radiotracer avidity. There are no radiotracer avid pelvic retroperitoneal lymph nodes. There is abnormal radiotracer-avidity in the prostate within the right midgland and apex compatible with biopsy-proven adenocarcinoma. Possibly,there is low-grade activity present within the posterior right mid glandmeasuring max SUV 4.4 although, this could be urinary bladder shinethrough artifact or within the realm of prostatic hypertrophy versuslow-grade disease (series 4, image 445). There is no ascites. Severe left hydronephrosis and pelvocaliectasis with renal corticalthinning. Unremarkable right kidney. Smooth liver contour. No focalradiotracer localization above the heterogenous uptake within the liver.Unremarkable spleen. Normal- appearing gallbladder, adrenal glands andpancreas. The small and large bowel are normal in caliber. Normal course and contourof the stomach and duodenum. MUSCULOSKELETAL: There are no foci of abnormal radiotracer-avidity. The low-dose CT doesnot demonstrate any lytic or blastic osseous lesions. IMPRESSION: 1. Focal radiotracer localization within the right prostatic mid gland andapex compatible with biopsy-proven adenocarcinoma. Low-grade posterior midgland activity may represent benign hypertrophy or urinary bladder shinethrough artifact versus low-grade disease. 2. No radiotracer avid or suspicious jamie, visceral or osseous metastaticdisease. 3. Severe left hydronephrosis and pelvocaliectasis with renal corticalthinning. CRITICAL RESULT: No. COMMUNICATION: Per this written report. By electronically signing this report, I, the attending physician, attestthat I have personally reviewed the images/data for the aboveexamination(s) and agree with the final edited report. Drafted by Edmund Covington MD on 07/09/2024 1:59 PM Final report signed by Poonam Hester on 07/09/2024 2:34 PM Vimal Patton MD IMG NM PROCEDURES Final Res ult from Last 3 Months Insurance ANTHE[employer] Advance Directives * Full Code (Latest Code Status on File) Date Activated Date Inactivated Comments 09/27/2024 12:36 PM 09/27/2024 8:19 PM Question Answer Comments I have reviewed the capacity from the link above and, if needed, have updated to appropriate status: Yes Care Teams Edging Machine Feeder Relationship Specialty Start Date End Date Megan Nuñez PA [address] [place] [address] PCP - General 08/08/23
--- OUTSIDE RECORDS SUMMARY | 2024-10-01 18:38 | XMS_ITS | Encounter Summary ---
Author Organization Healthcare Address [address] [place] [address] Care Team Providers Care Marine Pilot Name Role Phone Megan Nuñez Primary Care Provider [phone] Encounter Details Date Type Department Care Team (Latest Contact Info) Description 09/26/2024 Travel Social History Tobacco Use Types Packs/Day [...] Visit Medical Office Building Urology [address] [facility], [address] [place] [address] Vimal Patton MD [address] [facility] [address] [place] [address] documented as of this encounter [...] as of this encounter Care Teams Marine Pilot Relationship Specialty Start Date End Date Megan Nuñez PA [address] [place] [address] [address] [place] [address] PCP - General 08/08/23 documented as of this encounter
--- OUTSIDE RECORDS SUMMARY | 2024-10-01 18:38 | XMS_ITS | Encounter Summary ---
Author Organization Healthcare Address [address] [place] [address] Care Team Providers Care Greenhouse Specialist Name Role Phone Megan Nuñez Primary Care Provider [phone] Encounter Details Date Type Department Care Team (Late st Contact Info) Description 09/27/2024 Orders Only External Location [address] [place] [address] Provider, External Social History Tobacco Use Types [...] Visit Medical Office Building Urology [address] [facility], [address] [place] [address] Vimal Patton MD [address] [place] [address] documented as of this encounter Procedures Procedure Name Priority Date/Time Associated Diagnosis Comments POC ULTRASOUND 09/27/2024 documented in this encounter Results * POC Imaging (09/27/2024) Anatomical Region Laterality [...] documented as of this encounter Care Teams Greenhouse Specialist Relationship Specialty Start Date End Date Megan Nuñez PA [address] [place] [address] [address] [place] [address] PCP - General 08/08/23 documented as of this encounter
--- OUTSIDE RECORDS SUMMARY | 2024-10-01 18:38 | XMS_ITS | Encounter Summary ---
Author Organization Healthcare Address [address] [place] [address] Care Team Providers Care Diploma Pharmacy Technician Name Role Phone Megan Nuñez Primary Care Provider [phone] Reason for Visit * Reason Onset Date Comments HCN - Patient Message 07/31/2024 Surgery sc heduling Encounter Details Date Type Department Care Team (Late st Contact Info) Description 07/31/2024 Telephone [facility] [address] [place] [address] Vimal Patton MD [address] [place] [address] HCN - Patient Message (Surgery scheduling ) Social History Tobacco Use Types Packs/Day Years [...] PM EDT documented as of this encounter Miscellaneous Notes * Telephone Encounter - Mayelin Kerr RN - 08/08/2024 9:41 AM EDT Post-op appointment scheduled. * Telephone Encounter - Deena Vines - 07/31/2024 11:11 AM EDT Left message with patient to return call on direct line * Telephone Encounter - Karen Jackson - 07/31/2024 9:10 AM EDT Patient Phone Message Reason for Call: Pt requesting a return call to schedule prostate surgery please. Best contact number and optimal time of day to reach caller: [phone] Note: Please do not reply to this message. Follow-up communication and further actions as a result of this message need to be communicated with the patient directly, if the patient is not active onMyChart. If the patient is active on MyChart, they will receive notification of the communication/outcome via 3 day Blinds. documented in this encounter Plan of Treatment Upcoming Encounters Date Type Department Care Team ([facility] Contact Info) Description 10/07/2024 12:15 PM EDT Office Visit Medical Office Building Urology [address] [facility], [address] [place] [address] Vimal Patton MD [id number] [place] [address] documented as of this encounter [...] documented as of this encounter Care Teams Diploma Pharmacy Technician Relationship Specialty Start Date End Date Megan Nuñez PA [address] [place] [address] PCP - General 08/08/23 documented as of this encounter
--- OUTSIDE RECORDS SUMMARY | 2024-10-01 18:38 | XMS_ITS | Encounter Summary ---
Author Organization Healthcare Address [address] [place] [address] Care Team Providers Care Control Systems Drafting Officer Name Role Phone Megan Nuñez Primary Care Provider [phone] Encounter Details Date Type Department Care Team (Late st Contact Info) Description 09/30/2024 Telephone [facility] [address], [address] [place] [address] Vimal Patton MD [address] [place] [address] Social History Tobacco Use Types Packs/Day Years [...] encounter Miscellaneous Notes * Telephone Encounter - Kodi Lo MD - 09/30/2024 3:57 PM EDT Spoke with patient regarding leakage around his Vega catheter. The patient is not having any pain associated with this leakage. He is not experiencing urgency. His Vega catheter is draining withoutissue. Primary times the patient is having drainage is when he sits or stands and engages his add muscles. We explained that this is likely a result of elevated intravesical pressure during times he is engaging his core. He will plan to continue his Vega catheter until his follow up appointment. * Telephone Encounter - Elizabeth Hernandez RN - 09/30/2024 1:20 PM EDT I contacted Shavonne Gordon, patient's spouse, at [phone] regarding her concerns. Patient has a catheter after prostatectomy on 09/27/24. The patient has to change his depend every 5-6 hours due tourine leaking around the catheter. The patient occasionally feels a lot of pressure and a strong urge to urinate when there is leaking. states that urine is still flowing through the catheter into the bag as well. verbalized understanding to call clinic or go to emergency department if catheter quits draining. * Telephone Encounter - Lani Molina - 09/30/2024 11:25 AM EDT Clinical Concern/Question Reason for Call: Per , patient still has cath, he was told would be some leakage. She says patient is having a lot of leakage and they aren't sure if he is suppose to have that much. Asking for acall back. Best contact number: [phone] Optimal time of day to reach caller: ANYTIME Additional comments/information from caller: None Note: Please do not reply to this message. Follow-up communication and further actions as a result of this message need to be communicated with the patient directly, if the patient is not active onMyChart. If the patient is active on MyChart, they will receive notification of the communication/outcome via finalsitet. documented in this encounter Plan of Treatment Upcoming Encounters Date Type Department Care Team (Late st Contact Info) Description 10/07/2024 12:15 PM EDT Office Visit Medical Office Building Urology [address] [facility], [address] [place] [address] Vimal Patton MD [address] [place] [address] documented as of this encounter [...] documented as of this encounter Care Teams Control Systems Drafting Officer Relationship Specialty Start Date End Date Megan Nuñez PA [facility] [address] [place] [address] PCP - General 08/08/23 documented as of this encounter
--- OUTSIDE RECORDS SUMMARY | 2024-10-01 18:38 | XMS_ITS | Encounter Summary ---
Author Organization Healthcare Address [address] [place] [address] Care Team Providers Care Shrimp Picker Name Role Phone Megan Nuñez Primary Care Provider [phone] Encounter Details Date Type Department Care Team (Late st Contact Info) Description 08/07/2024 Telephone [place] [facility] [address], [address] [place] [address] Vimal Patton MD [address] [place] [address] Social History Tobacco Use Types [...] encounter Miscellaneous Notes * Telephone Encounter - Rupali Dowling - 08/07/2024 11:24 AM EDT Called patient to schedule surgery with Dr. Patton - surgery arranged - discussed surgery directions with patient - patient knows to expect a call from our preop anesthesia clinic the day prior to surgery with surgery and arrival time - all questions answered and surgery directions mailed to patient - verified phone number and address with patient documented in this encounter Plan of Treatment Upcoming Encounters Date Type Department Care Team ([facility] st Contact Info) Description 10/07/2024 12:15 PM EDT Office Visit Medical Office Building Urology [address] [address] [facility] [address], [address] [place] [address] Vimal Patton MD [address] [place] [id number] documented as of this encounter Visit Diagnoses [...] documented as of this encounter Care Teams Shrimp Picker Relationship Specialty Start Date End Date Megan Nuñez PA [address] [facility] [address] [place] [address] PCP - General 08/08/23 documented as of this encounter
--- NOTE | 2024-10-01 18:39 | ED_ITS ---
<Statement entered by rTice Galeana DO - 10/01/24 23:43> I was consulted by the BUBBA, and we discussed the complexity of the problems being addressed. I approved the treatment and management plan for this patient's care in the emergency department, thus performing a substantive portion of the medical decision making. Trice Galeana DO Discharge Plan Disposition Patient Disposition: Home, Self-Care Prescriptions Prescriptions: No Action tamsulosin [Flomax] 0.4 mg capsule 0.4 mg PO DAILY 90 Days Qty: 90 2RF loratadine 10 mg tablet 10 mg PO DAILY Patient Comments: TAKE 1 TABLET BY MOUTH ONCE DAILY lisinopril 20 mg Tablet 20 mg PO DAILY bisoprolol fumarate 10 mg Tablet 10 mg PO DAILY rosuvastatin 20 mg Tablet 20 mg PO DAILY methylprednisolone 4 mg Tablets,Dose Pack 4 mg PO DIRECTED 6 Days Qty: 21 0RF Rx Instructions: Take 1 pack as directed for 6 days Referrals Follow up/Referrals: James Hernandez MD [Primary Care Provider, Medical] - See instructions Activity Restrictions/Add. Instructions Additional Instructions/Restrictions: Today you were evaluated in the emergency department, please keep your follow-up appointment with urology on 10/07/2024. Please return to the ED for any worsening of your condition. Clinical Impressions Clinical Impression: Hematuria Qualifiers: Hematuria type: unspecified type Qualified Code(s): R31.9 - Hematuria, u nspecified Instructions Patient Instructions: DI for Hematuria Print Language Print Language: Hebrew Discharge ED Provider: Trice Galeana General Adult HPI General Chief complaint: Urogenital-Male Stated complaint: Bleeding around martinez catheter,with pressure Time Seen by Provider: 10/01/24 18:33 History of Present Illness HPI narrative: patient is a 53-year-old male PMHx prostate cancer who had surgery at on his prostate this past Monday, had a Martinez catheter placed at this time, presents today to the ED stating he is having blood around the tip of penis and blood in urine. Related Data Home Medications ?Medication ?Instructions ?Recorded ?Confirmed bisoprolol fumarate 10 mg tablet 10 mg PO DAILY 02/19/24 lisinopril 20 mg tablet 20 mg PO DAILY 05/22/2302/01 rosuvastatin 20 mg tablet 20 mg PO DAILY 05/22/2302/01 loratadine 10 mg tablet 10 mg PO DAILY 06/12/2302/01 Previous Rx's ?Medication ?Instructions ?Recorded methylprednisolone 4 mg tablets in 4 mg PO DIRECTED 6 days #21 tabs 09/03/23 a dose pack tamsulosin 0.4 mg capsule (Flomax) 0.4 mg PO DAILY 90 days #90 caps 02/19/24 Allergies Allergy/AdvReac Type Severity Reaction Status Date / Time amoxicillin Allergy Severe Other Verified 02/19/24 13:13 erythromycin base Allergy Severe Other Verified 02/19/24 13:13 Penicillins Allergy Severe Other Verified 02/19/24 13:13 [facility] Disclaimer: The information contained in this section may have been updated after the patient was seen, as this information can be updated by other users. Medical History Hyperlipidemia Hypertension Surgical History History of esophagogastroduodenoscopy (EGD) History of colonoscopy History of tonsillectomy Family History Other Family history of heart disease Social History Smoking Status: Never smoker alcohol intake: never substance use type: denies use current occupational status: employed Travel in the last 8 weeks?: None Have you lived/traveled outside US in past 30 days?: No Contact w/someone who lives/traveled outside US past 30 days?: No Exposure to someone with infectious disease in past 14 days?: No Do you have a fever (greater than 100.4 F or 38 C)?: No Have you tested positive for COVID-19?: No Exposed to someone with COVID-19 in past 14 days?: No Do you have a sore throat?: No Do you have a cough?: No Do you have any weakness?: No Do you have any diarrhea?: No Are you experiencing any unusual bleeding?: No Do you have any muscle aches/pain?: No Do you have any abdominal pain?: No Are you experiencing loss of taste or smell?: No ROS Obtained: Yes Systems reviewed as appropriate & no additional complaints exc ept as documented Physical Exam General General appearance: alert and in no apparent distress Head Head exam: atraumatic and normocephalic Eye Eye exam: Present normal appearance and PERRL ENT ENT exam: Present normal exam Neck Neck exam: Present normal inspection Chest Chest inspection: Present normal inspection and symmetric chest wall rise; Absent tenderness Respiratory Respiratory exam: Present normal lung sounds bilaterally Cardiovascular Cardiovascular exam: Present regular rate Abdominal Exam Abdominal exam: Present soft and normal bowel sounds; Absent tenderness Extremities Exam Extremities exam: Present normal inspection and full ROM Back Exam Back exam: Present normal inspection and full ROM Neurological Exam Neurological exam: Present alert and oriented X3 Psychiatric Psychiatric exam: Present normal affect and normal mood Skin Skin exam: Present warm and dry Medical Decision Making Medical Records Screening: Per USPSTF and CDC recommendations, given the prevalence of disease in our region, it is our hospital?s policy to screen for HIV and viral Hepatitis for all patients aged 18 and over and those with ongoing risk factors. Mk Inquiry Pt receiving controlled substance: No Vital Signs: 10/01/24 18:42 Temperature 98.2 F Temperature Source Oral Pulse Rate [Right Brachial] 76 Respiratory Rate 16 Blood Pressure [Right Arm] 145/82 H Blood Pressure Mean [Right Arm] 103 Blood Pressure Source [Right Arm] Automatic Cuff Blood Pressure Position [Right Arm] Sitting 02 Sat by Pulse Oximetry 98 Oxygen Delivery Method Room Air Medical Decision Narrative: In summary, patient is a 53-year-old male PMHx prostate cancer who had surgery at on his prostate this past Monday, had a Martinez catheter placed at this time, presents today to the ED stating he is having blood around the tip of penis and blood in urine. Patient states that he feels pressure when he has to urinate. He has not followed up with urology at . Denies any additional complaints at this time. Denies fever, chills, body aches, abdominal pain, nausea, vomiting. Upon initial evaluation patient is alert, oriented and cooperative. He is hemodynamically stable. Abdomen is soft and nontender. Differential diagnoses include clogged catheter, misplaced catheter, retention, infectious process, among others. Patient's bladder scan was 1 mL. Physical exam reveals small amount of blood in patient's brief. Patient was able to call the on-call urologist at while he was in the room, I spoke with Dr. Espinosa who advised that this is normal postop and for patient to keep his follow-up appointment on 10/07/24. Given this, I feel the patient is safe to be discharged home at this time. We discussed return precautions to the ED. Patient verbalized understanding. Critical Care Critical Care Time Critical Care Time: No
[2024-10-01 18:42] VITALS: BP 145/82; PULSE 76; RESP 16; TEMP 36.8; O2SAT 98; BMI 36.2
--- NOTE | 2024-10-01 18:46 | PC.NURSE ---
Bladder scan @ bedside = <1 ml.
[2024-10-01 19:08] VITALS: BP 145/67; PULSE 68; RESP 16; TEMP 37.1
== END 2024-10-01 19:08 | disposition home or self-care (01) ==
PROVIDERS: Emergency Provider Emergency Medicine; PCP Family Medicine
DX: R31.9 Hematuria, unspecified (principal); Z96.0 Presence of urogenital implants; Z85.46 Personal history of malignant neoplasm of prostate
CPT/HCPCS: 99283

== ENCOUNTER 2024-12-26 15:54 | Outpatient (CLI) | payer BC, SELFPAY ==
[2024-12-26 19:06] LABS: Prostate Specific Ag, Diagnost < 0.064 ng/ml (0.0-4.0)
== END 2024-12-26 23:59 | disposition home or self-care (01) ==
LOC: LAB 15:55
PROVIDERS: PCP Family Medicine; Visit Provider Urology
DX: C61 Malignant neoplasm of prostate (principal)
CPT/HCPCS: 84153

== ENCOUNTER → 2025-01-02 06:40 | Outpatient (CLI) | payer BC, SELFPAY ==
--- OUTSIDE RECORDS SUMMARY | 2024-05-27 06:15 | XMS_ITS ---
[facility] Address [address] [facility] [address] [place] [id number] Care Team Providers Care Phlebotomy Support Tech Name Role Phone Keely Murray Primary Care Provider James Hernandez Unavailable [phone] Allergies Allergen (clinical drug ingredient) Drug/Non Drug Allergy documented on EMR Reaction Allergy Type Onset Date Status Penicillin hives Drug Allergy Active REASON FOR VISIT BP still running high Medications Medication SIG (Take, Route, Frequency, Duration) Notes Start Date End Date Status Allopurinol 200 MG 1 tablet Orally Once a day; Duration: 90 days Active Colchicine 0.6 MG 1 tablet Orally once daily Active Metoprolol Succinate ER 50 MG 2 tablet Orally Once a day 05/20/2024 Active Flomax 0.4 MG 1 capsule Orally Onc e a day; Duration: 30 day(s) Active CoQ-10 100 MG 1 cap(s) orally once a day; Duration: 30 day(s) 01/28/2022 Active Rosuvastatin Calcium 10 MG 1 tab(s) oral ly once a day; Duration: 90 days Active Lisinopril-hydroCHLOROthiaz tod 20-12.5 MG 2 tablet Orally Once a day Active EQ All Day Allergy Relief 10 MG Take 1 tablet by mouth once daily; Duration: 30 Active Vital Signs Weight 266.2 lbs 05/27/2024 Blood pressure systolic 138 mm Hg 05/27/19 25 Blood pressure diastolic 84 mm Hg 025 Heart Rate 83 /min 05/27/2024 Height 72 in 05/27/2024 BMI 36.10 kg/m2 05/27/2024 Encounters Encounter Location Date Provider Diagnosis [facility] [address] [place] [id number] 05/27/2024 James Hernandez Essential hypertensi on I10 Assessments Encounter Date Diagnosis (ICD Code) Assessment Notes Treatment Notes Treatment Clinical Notes Section Notes 05/27/2024 Essential hypertension (ICD-10 - I10) Plan Of Treatment Medication Medication Name Sig Start Date Stop Date Notes Metoprolol Succinate ER 50 MG 2 tablet Orally Once a day 0 05/20/2024 Lisinopril-hydroCHLOROthiazi de 20-12.5 MG 2 tablet Orally Once a day Next Appt Details Follow Up: as scheduled,and prn, Reason: Provider Name:James Paz , 01/27/2025 11:30:00 AM, [address] [facility] [address], [address], [place], [id number], Progress Notes * RAMSES LICEADOB:1970 (54 yo M)Acc No.[id number]:05/27/2024 Progress Notes Patient: RAMSES GIBSON Provider: Mauricio Hernandez M.D. :1970 A ge:53 Y S ex:Male Date:05/27/2024 Address:[facility] [place] , [id number] Pcp:Keely Murray Subjective: * Chief Complaints: * 1 . BP still running high. * HPI: C ardiology: 53 year old male presents with c/o Blood Pressure Elevated P t complains of ongoing elevated bp at home. Pt states b p has remained around high 100's/100. Pt states he started taking Metoprolol F riday night and his bp did improve to 140/70's Monday and Monday. * ROS: D ERMATOLOGY: no R javid. n o H trish. G ASTROENTEROLOGY: no N ausea. n o V omiting. U ROLOGY: no D ifficulty urinating. n o B lood in urine. * Medical History: H ypertension, Hyperlipidemia, Hypertriglyceridemia, prostate cancer - Dx: 2022, followed at , watchful waiting, Impaired fasting glucose. * Surgical History: T onsillectomy/Adnoidectomy 1980, 6 Teeth Cut Out 2014, Colonoscopy 2015, Upper GI Scope 2015. * Hospitalization/Major Diagno stic Procedure: D enies Past Hospitalization. * Family History: F ather: alive, diagnosed with Diabetes, Hypertension, Heart Disease, Mental Illness. M other: alive, diagnosed with Hypertension. Father-3 Heart Attacks. * Social History: C URRENT TOBACCO USE: No S moking Status: P atient does NOT smoke, F ormer Smoker:?Yes, Q uit smokin 014. * Medications: T aking Flomax 0.4 MG Capsule 1 capsule Orally Once a day , Taking CoQ-10 100 MG Capsule 1 cap(s) orally once a day , Taking EQ All Day Allergy Relief 10 MG Tablet Take 1 tablet by mouth once daily , Taking Rosuvastatin Calcium 10 MG Tablet 1 tab(s) orally once a day , Taking Allopurinol 200 MG Tablet 1 tablet Orally Once a day , Taking Colchicine 0.6 MG Tablet 1 tablet Orally once daily , Taking Lisinopril-hydroCHLOROthiazide 20-12.5 MG Tablet 2 tablet Orally Once a day , Taking Metoprolol Succinate ER 50 MG Tablet Extended Release 24 Hour 2 tablet Orally Once a day , Medication List reviewed and reconciled with the patient * Allergies: P enicillin: hives. Objective: * Vitals: W t:266.2, Temp:97.8, BP:138/84, HR:83, Nurse:nancy, Ht: 72, BMI:36.10. * Examination: C ardiology: General Appearance: p leasant, NAD. H eart sounds: R RR. L ungs: c lear, no rales or wheezes. E xtremities: n o leg edema. ? Assessment: * Assessment: 1. E ssential hypertension - I10 (Primary) Plan: * Treatment: * Procedure Codes: 3 075F SYST BP GE 130 - 139MM HG, 3079F DIAST BP 80-89 MM HG * Follow Up: a s scheduled,and prn * Images: Billing Information: * Visit Code: 36353 Office Visit, Est Pt., Level 3. * Procedure Codes: 3075F SYST BP GE 130 - 139MM HG. 3079F DIAST BP 80-89 MM HG. * Electronic signature of Ifrah Hernandez MD on 01/02/2025 at 06:42 AM EDT Sign off status: Pending * Provider: Mauricio Hernandez M.D. Date: 0 05/27/2024 Generated for Mukund ventura/Jo Ann/Omer on: 1 06:42 AM EDT History and Physical Notes * HPI (History of Present Illness) Category Sub-Category Detail Notes Category Not es Cardiology Blood Pressure Elevated Pt compl ains of ongoing elevated bp at home. Pt states bp has remained around high 100's/100. Pt states he started taking Metoprolol Monday night and his bp did improve to 140/70's Monday and Monday Examination Category Sub-Category Detail Notes Category Not es Cardiology Lungs: clear, no rales or wheezes Heart sounds: RRR Extremities: no leg edema General Appearance: pleasant, NAD
--- OUTSIDE RECORDS SUMMARY | 2024-06-17 05:45 | XMS_ITS ---
Author Organization [facility] [place] Address [address] [place] [address] [place] [id number] Care Team Providers Care Daily Sales Audit Clerk Name Role Phone Keely Murray Primary Care Provider James Hernandez Unavailable [phone] Allergies Allergen (clinical drug ingredient) Drug/Non Drug Allergy documented on EMR Reaction Allergy Type Onset Date Status Penicillin hives Drug Allergy Active REASON FOR VISIT 1 month ckup Medications Medication SIG (Take, Route, Frequency, Duration) Notes Start Date End Date Status Colchicine 0.6 MG 1 tablet Orally once daily Active Allopurinol 200 MG 1 tablet Orally Once a day Active EQ All Day Allergy Relief 10 MG Take 1 tablet by mouth once daily; Duration: 30 Active Lisinopril-hydroCHLOROthiaz tod 20-12.5 MG 2 tablet Orally Once a day; Duration: 90 days Active CoQ-10 100 MG 1 cap(s) orally once a day; Duration: 30 day(s) 01/28/2022 Active Flomax 0.4 MG 1 capsule Orally Onc e a day; Duration: 30 day(s) Active Rosuvastatin Calcium 10 MG 1 tab(s) oral ly once a day; Duration: 90 days Active Metoprolol Succinate ER 100 MG 1 tablet Orally Once a day; Duration: 90 days 06/17/2024 Active Problems Problem Type SNOMED Code ICD Code Onset Dates Problem Status W/U Status Risk Notes Problem Chronic gouty arthritis (11601028) Chronic idiopathic gout (M1A.00X0) Active confirmed Vital Signs Weight 262.6 lbs 06/17/2024 Blood pressure systolic 118 mm Hg 06/18/19 25 Blood pressure diastolic 72 mm Hg 025 Heart Rate 72 /min 06/17/2024 Height 72 in 06/17/2024 BMI 35.61 kg/m2 06/17/2024 Encounters Encounter Location Date Provider Diagnosis [facility] [address] [facility] 36 [facility] [address] [place], [place] [id number] 06/17/2024 James Hernandez Essential hypertensi on I10 ; Dyslipidemia E78.5 and Chronic idiopathic gout M1A.00X0 Assessments Encounter Date Diagnosis (ICD Code) Assessment Notes Treatment Notes Treatment Clinical Notes Section Notes 06/17/2024 Essential hypertension (ICD-10 - I10) 06/17/2024 Dyslipidemia (ICD-10 - E78.5) 06/17/2024 Chronic idiopathic gout (ICD-10 - M1A.00X0) Plan Of Treatment Medication Medication Name Sig Start Date Stop Date Notes Colchicine 0.6 MG 1 tablet Orally once daily Allopurinol 200 MG 1 tablet Orally Once a day Metoprolol Succinate ER 50 MG 2 tablet Orally Once a day 0 05/20/2024 Lisinopril-hydroCHLOROthiazi de 20-12.5 MG 2 tablet Orally Once a day; Duration: 90 days Rosuvastatin Calcium 10 MG 1 tab(s) oral ly once a day; Duration: 90 days Metoprolol Succinate ER 100 MG 1 tablet Orally Once a day; Duration: 90 days 06/17/2024 Next Appt Details Follow Up: 3 Months, Reason: Provider Name:James escalera, 01/27/2025 11:30:00 AM, [address] [facility] 36 [facility], [address], [place], [place], [phone], Progress Notes * RAMSES LICEADOB:1970 (54 yo M)Acc No.[id number]:06/17/2024 Progress Notes Patient: RAMSES GIBSON Provider: Mauricio Hernandez M.D. :1970 A ge:53 Y S ex:Male Date:06/17/2024 Address:[facility] [place] , [facility] Pcp:Keely Murray Subjective: * Chief Complaints: * 1 . 1 month ckup. * HPI: C ardiology: 53 year old male presents with c/o Blood Pressure Elevated P t here for 1 mo f/u on hypertension. Pt states bp at home has improved and he does not have any concerns. * ROS: D ERMATOLOGY: no R javid. [...] P enicillin: hives. Objective: * Vitals: W t:262.6, Temp:97.9, BP:118/72, HR:72, Nurse:nancy, Ht: 72, BMI:35.61. * Examination: C ardiology: General Appearance: p leasant, NAD. H eart sounds: R RR. L ungs: c lear, no rales or wheezes. E xtremities: n o leg edema. ? Assessment: * Assessment: 1. E ssential hypertension - I10 (Primary) 2 . D yslipidemia - E78.5 ? 3 . C hronic idiopathic gout - M1A.00X0 Plan: * Treatment: 2. D yslipidemia Refill Rosuvastatin Calcium Tablet, 10 MG, 1 tab(s), orally, once a day, 90 days, 90, Refills 1.? 3. C hronic idiopathic gout Continue Allopurinol Tablet, 200 MG, 1 tablet, Orally, Once a day; C ontinue Colchicine Tablet, 0.6 MG, 1 tablet, Orally, once daily. * Procedure Codes: 3 074F SYST BP LT 130 MM HG, 3078F DIAST BP < 80 MM HG * Follow Up: 3 Months * Images: Billing Information: * Visit Code: 54210 Office Visit, Est Pt., Level 4. * Procedure Codes: 3074F SYST BP LT 130 MM HG. 3078F DIAST BP < 80 MM HG. * Electronic signature of Ifrah Hernandez MD on 01/02/2025 at 06:43 AM EDT Sign off status: Pending * Provider: Mauricio Hernandez M.D. Date: 0 06/17/2024 Generated for Mukund ventura/Jo Ann/Omer on: 1 06:43 AM EDT History and Physical Notes * HPI (History of Present Illness) Category Sub-Category Detail Notes Category Not es Cardiology Blood Pressure Elevated Pt here for 1 mo f/u on hypertension. Pt states bp at home has improved and he does not have any concerns Examination Category Sub-Category Detail Notes Category Not es Cardiology Lungs: clear, no rales or wheezes Heart sounds: RRR Extremities: no leg edema General Appearance: pleasant, NAD
--- OUTSIDE RECORDS SUMMARY | 2024-07-29 07:30 | XMS_ITS ---
Author Organization [facility] Address [address] [place] [phone] Care Team Providers Care Education Associate Name Role Phone Keely Murray Primary Care Provider James Hernandez Unavailable [phone] Allergies Allergen (clinical drug ingredient) Drug/Non Drug [...] Duration: 90 days 06/17/2024 Active Vital Signs Weight 263 lbs 07/29/2024 Blood pressure systolic 160 mm Hg 07/30/19 25 Blood pressure diastolic 92 mm Hg 025 Heart Rate 73 /min 07/29/2024 Height 72 in 07/29/2024 BMI 35.67 kg/m2 07/29/2024 Encounters Encounter Location Date Provider Diagnosis [facility] [address] [place] [id number] 07/29/2024 James Hernandez 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 :1970 A ge:53 Y S ex:Male Date:07/29/2024 Address:[address] [place], [place] [phone] Pcp:Keely Murray Subjective: * Chief Complaints: * [...] Procedure Codes: 8 1002 Urinalysis, no micro, 53819 VISUAL ACUITY SCREEN * Follow Up: p rn * Images: Billing Information: * Visit Code: 32035 Preventive Care Est Pt Age 40-64. * Procedure Codes: 26860 Urinalysis, no micro. 79586 VISUAL ACUITY SCREEN. * Electronic signature of Ifrah Hernandez MD on 01/02/2025 at 06:43 AM EDT Sign off status: Pending * Provider: Mauricio Hernandez M.D. Date: 0 07/29/2024 Generated for Carliei ng/Fajoshg/eTransmitting on: 1 06:43 AM EDT History and [...]
--- OUTSIDE RECORDS SUMMARY | 2024-09-16 05:15 | XMS_ITS ---
[facility] [address] [facility] [address] [place] [phone] Care Team Providers Care Jig Worker Name Role Phone Keely Murray Primary Care Provider [phone] James Hernandez Unavailable [phone] Allergies Allergen (clinical drug ingredient) Drug/Non Drug Allergy documented on EMR Reaction Allergy Type Onset Date Status Penicillin hives Drug Allergy Active REASON FOR VISIT 3 month ckup Medications Medication SIG (Take, Route, Frequency, Duration) Notes Start Date End Date Status Allopurinol 200 MG 1 tablet Orally Once a day; Duration: 90 days Active Rosuvastatin Calcium 10 MG 1 tab(s) oral ly once a day; Duration: 90 days Active Metoprolol Succinate ER 100 MG 1 tablet Orally Once a day 06/17/2024 Active Lisinopril-hydroCHLOROthiaz tod 20-12.5 MG 2 tablet Orally Once a day Active Colchicine 0.6 MG 1 tablet Orally once daily Active EQ All Day Allergy Relief 10 MG Take 1 tablet by mouth once daily; Duration: 30 Active CoQ-10 100 MG 1 cap(s) orally once a day; Duration: 30 day(s) 01/28/2022 Active Flomax 0.4 MG 1 capsule Orally Onc e a day; Duration: 30 day(s) Active Vital Signs Weight 260.4 lbs 09/16/2024 Blood pressure systolic 122 mm Hg 09/17/19 25 Blood pressure diastolic 82 mm Hg 025 Heart Rate 64 /min 09/16/2024 Height 72 in 09/16/2024 BMI 35.31 kg/m2 09/16/2024 Encounters Encounter Location Date Provider Diagnosis [facility] [address] [place] [phone] 09/16/2024 James Hernandez Essential hypertensi on I10 Assessments Encounter Date Diagnosis (ICD Code) Assessment Notes Treatment Notes Treatment Clinical Notes Section Notes 09/16/2024 Essential hypertension (ICD-10 - I10) Plan Of Treatment Medication Medication Name Sig Start Date Stop Date Notes Metoprolol Succinate ER 100 MG 1 tablet Orally Once a day 06/17/2024 Lisinopril-hydroCHLOROthiazi de 20-12.5 MG 2 tablet Orally Once a day Next Appt Details Follow Up: 2 Months fasting, Reason: Provider Name:James Paz , 01/27/2025 11:30:00 AM, [facility], [address], [place], [phone], Progress Notes * RAMSES LICAEDOB:1970 (54 yo M)Acc No.[id number]:09/16/2024 Progress Notes Patient: RAMSES GIBSON Provider: Mauricio Hernandez M.D. :1970 A ge:53 Y S ex:Male Date:09/16/2024 Address:[facility] [place] , [id number] Pcp:Keely Murary Subjective: * Chief Complaints: * 1 . 3 month ckup. * HPI: C ardiology: 53 year old male presents with c/o Blood Pressure Elevated P t here to f/u on hypertension. Pt states he is doing well and does not have any concerns. * ROS: [...] Family History: F ather: alive, diagnosed with Hypertension, Diabetes, Mental Illness, Heart Disease. M other: alive, diagnosed with Hypertension. Father-3 [...] 1 tablet Orally once daily , Taking Allopurinol 200 MG Tablet 1 tablet Orally Once a day , Medication List reviewed and reconciled with the patient * Allergies: P enicillin: hives. Objective: * Vitals: W t: 260.4, Temp: 98.0, BP: 122/82, HR: 64, Nurse: nancy, Ht: 72, BMI:35.31. * Examination: C ardiology: General Appearance: p leasant, NAD. H eart sounds: R RR. L ungs: c lear, no rales or wheezes. E xtremities: n o leg edema. ? Assessment: * Assessment: 1. E ssential hypertension - I10 (Primary) Plan: * Treatment: * Procedure Codes: 1 036F TOBACCO NON-USER, G8950 PREHTN/HTN BP DOC INDCD F/U DOC, G8752 MOST RECENT SYSTOLIC BP < 140MM HG, G8754 MOST RECENT DIASTOLIC BP < 90MM HG, 3017F COLORECTAL CA SCREEN DOC REV * Preventive Medicine: Screening / Special Tests: C olonoscopy Normal, repeat 5 years. * Follow Up: 2 Months fasting * Images: Billing Information: * Visit Code: 59435 Office Visit, Est Pt., Level 3. * Procedure Codes: 1036F TOBACCO NON-USER. G8950 PREHTN/HTN BP DOC INDCD F/U DOC. G8752 MOST RECENT SYSTOLIC BP < 140MM HG. G8754 MOST RECENT DIASTOLIC BP < 90MM HG. 3017F COLORECTAL CA SCREEN DOC REV. * Electronic signature of Ifrah Hernandez MD on 01/02/2025 at 06:43 AM EDT Sign off status: Pending * Provider: Mauricio Hernandez M.D. Date: 0 09/16/2024 Generated for Mukund ventura/Jo Ann/Nildaitting on: 1 06:43 AM EDT History and Physical Notes * HPI (History of Present Illness) Category Sub-Category Detail Notes Category Not es Cardiology Blood Pressure Elevated Pt here to f/u on hypertension. Pt states he is doing well and does not have any concerns Examination Category Sub-Category Detail Notes Category Not es Cardiology Lungs: clear, no rales or wheezes Heart sounds: RRR Extremities: no leg edema General Appearance: pleasant, NAD
--- OUTSIDE RECORDS SUMMARY | 2024-11-25 06:00 | XMS_ITS ---
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 Name Role Phone Keely Murray Primary Care Provider James Hernandez Unavailable [phone] Allergies Allergen (clinical drug ingredient) Drug/Non Drug Allergy documented on EMR Reaction Allergy Type Onset Date Status Penicillin hives Drug Allergy Active Results Component Value Reference Range Notes Glucose (In-House) Reviewed date:11/26/2024 09:15:01 AM Interpretation:160 Performing Lab: Notes/Report: 160 blood glucose 160 74 - 106 mg/dL Glycohemoglobin A1c (in hous e) Reviewed date:11/26/2024 09:15:02 AM Interpretation:5.9 Normal Performing Lab: Notes/Report: 5.9 Normal glycohemoglobin 5.9% 5 - 6.5 % P-Comprehensive Metabolic Pa michelle (CMP) Reviewed date:11/26/2024 09:15:01 AM Interpretation:gluc 134, bun 26 Performing Lab: Notes/Report: CLIA: [id number] Cyrus Roca MD, Fermentation Engineer [address] [facility] , [address], [place] [address] Test performed by [facility], [employer] Sodium 143 135-145 mmol/L Potassium 4.2 3.5-5.3 mmol/L Chloride 103 97-108 mmol/L CO2 28 20-32 mmol/L Glucose 134 65-99 mg/dL BUN 26 6-20 mg/dL Creatinine 1.17 0.70-1.30 mg/dL Calcium 10.1 8.6-10.4 mg/dL eGFR by Creatinine 73 >59 mL/min/1.73m2 Protein 7.1 6.0-8.3 g/dL Albumin 4.2 3.5-5.3 g/dL Alkaline Phosphatase 102 40-129 IU/L ALT (SGPT) 22 <5-55 IU/L AST (SGOT) 24 <5-46 IU/L Bilirubin, Total 0.3 <0.2-1.2 mg/dL A/G Ratio 1.4 1.1-2.5 P-Lipid Panel Reviewed date:11/26/2024 09:15:01 AM Interpretation:Normal Performing Lab: Notes/Report: Test performed by [facility], [address] , [address], [place] [address] Cyrus Roca MD, Fermentation Engineer CLIA: [id number] Cholesterol 128 <200 mg/dL Triglycerides 120 <150 mg/dL HDL Cholesterol 43 >39 mg/dL Cholesterol / HDL Ratio 2.98 0.00-4.99 Ratio Non-HDL Cholesterol 85 <130 mg/dL LDL Cholesterol (Calculation) 61 <130 mg/dL LDL Cholesterol Levels* Less than 100 mg/dL Optimal 100 to 129 mg/dL Near Optimal/ Above Optimal 130 to 159 mg/dL Borderline High 160 to 189 mg/dL High 190 mg/dL and above Very High * Categories as recommended by the 2004 ATPIII guidelines LDL/HDL Ratio 1.4 <3.3 Ratio LDL Cholesterol Patient History Test Date: 04/21/2023 LDL Results: 55 Units: mg/dL % Change: - Test Date: 11/20/2023 LDL Results: 66 Units: mg/dL % Change: +20% Test Date: 11/25/2024 LDL Results: 61 Units: mg/dL % Change: -7% P-TSH reflex to FT4 Reviewed date:11/26/2024 09:15:01 AM Interpretation:Normal Performing Lab: Notes/Report: Test performed by [facility] [address] [place] [address] , [address] , [place] [address] Cyrus Roca MD, Fermentation Engineer CLIA: [id number] TSH reflex to FT4 1.38 0.43-5.25 mU/L P-Microalbumin/Creatinine, R andom Urine Sample Reviewed date:11/26/2024 09:15:01 AM Interpretation:a/c 236 Performing Lab: Notes/Report: Test performed by [facility] [address] [place] [address] , [address], [place] [address] Cyrus Roca MD, Fermentation Engineer CLIA: [id number] Albumin/Creatinine Ratio, Urine 236 0-30 ug/m g Microalbumin, Urine, Random 26.6 Creatinine, Urine 112.5 P-Uric Acid Reviewed date:11/26/2024 09:15:01 AM Interpretation:Normal Performing Lab: Notes/Report: Test performed by [facility], [address] , [address], [place] [address] Cyrus Roca MD, Fermentation Engineer CLIA: [id number] Uric Acid 6.4 3.4-8.0 mg/dL REASON FOR VISIT 2 Month F/U with Fasting Labs Medications Medication SIG (Take, Route, Frequency, Duration) Notes Start Date End Date Status Colchicine 0.6 MG 1 tablet Orally once daily Active EQ All Day Allergy Relief 10 MG Take 1 tablet by mouth once daily; Duration: 30 Active Irbesartan 300 MG 1 tablet Orally Once a day; Duration: 90 days 11/25/2024 Active Allopurinol 100 MG 2 tablets Orally Onc e a day; Duration: 90 days 10/24/2024 Active Metoprolol Succinate ER 100 MG 2 tablet Orally Once a day Active Flomax 0.4 MG 1 capsule Orally Onc e a day; Duration: 30 day(s) Active CoQ-10 100 MG 1 cap(s) orally once a day; Duration: 30 day(s) 01/28/2022 Active Rosuvastatin Calcium 10 MG 1 tab(s) oral ly once a day; Duration: 90 days Active Problems Problem Type SNOMED Code ICD Code Onset Dates Problem Status W/U Status Risk Notes Problem Primary insomnia (6240320) Primary insomnia (F51.01) Active confirmed Problem Obesity (358236286) Non morbid obesity (E66.9) Active confirmed Vital Signs Weight 244.8 lbs 11/25/2024 Blood pressure systolic 160 mm Hg 11/26/19 25 Blood pressure diastolic 78 mm Hg 025 Heart Rate 71 /min 11/25/2024 Height 72 in 11/25/2024 BMI 33.2 kg/m2 11/25/2024 Encounters Encounter Location Date Provider Diagnosis [facility] [address] [place], [place] [id number] 11/25/2024 Jameslinda Hernandez Essential hypertensi on I10 ; IFG (impaired fasting glucose) R73.01 ; Dyslipidemia E78.5 ; Hypertriglyceridemia E78.1 ; Primary insomnia F51.01 ; Non morbid obesity E66.9 and Chronic idiopathic gout [id number].[id number] Assessments Encounter Date Diagnosis (ICD Code) Assessment Notes Treatment Notes Treatment Clinical Notes Section Notes 11/25/2024 Essential hypertensi on (ICD-10 - I10) 11/25/2024 IFG (impaired fastin g glucose) (ICD-10 - R73.01) 11/25/2024 Dyslipidemia (ICD-10 - E78.5) 11/25/2024 Hypertriglyceridemia (ICD-10 - E78.1) 11/25/2024 Primary insomnia (IC D-10 - F51.01) 11/25/2024 Non morbid obesity (ICD-10 - E66.9) 11/25/2024 Chronic idiopathic g out (ICD-10 - M1A.00X0) Plan Of Treatment Medication Medication Name Sig Start Date Stop Date Notes Irbesartan 300 MG 1 tablet Orally Once a day; Duration: 90 days 11/25/2024 Allopurinol 100 MG 2 tablets Orally Onc e a day; Duration: 90 days 10/24/2024 Metoprolol Succinate ER 100 MG 2 tablet Orally Once a day Rosuvastatin Calcium 10 MG 1 tab(s) oral ly once a day; Duration: 90 days Lisinopril-hydroCHLOROthiazi de 20-12.5 MG 2 tablet Orally Once a day Pending Test Test Name Order Date sleep study 11/25/2024 Next Appt Details Follow Up: 2 Months CDL phys ical, Reason: Provider Name:James Paz , 01/27/2025 11:30:00 AM, [address] [facility], [address], [place], [place], [id number], Progress Notes * LICEA, RAMSESDOB:1970 (54 yo M)Acc No.[id number]:11/25/2024 Progress Notes Patient: RAMSES GIBSON Provider: Mauricio Hernandez M.D. :1970 A ge:54 Y S ex:Male Date:11/25/2024 Address:[facility] [address] , [facility] Pcp:Keely Murray Subjective: * Chief Complaints: * 1 . 2 Month F/U with Fasting Labs. * HPI: C ardiology: 54 year old male presents with c/o Blood Pressure Elevated P t. here for check up on Hypertension. Pt states he does need refills on all of his medications but Metoprolol. c/o Hyperlipidemia P t is fasting today. 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 Pt states his BMI is higher than it should be and his neck measured 17 . Pt states he does have issues sleeping but he does not snore at night while asleep. P sychology: c/o Anxiety P t states he has bad mood swings and feels anxious alot. Pt states he has noticed a change in his temperament. * ROS: D ERMATOLOGY: no R javid. [...] Out 2014, Colonoscopy 2015, Upper GI Scope 2015, prostatectomy at September 2024. * Hospitalization/Major Diagno stic Procedure: D enies Past Hospitalization. * Family History: F ather: alive, diagnosed with Mental Illness, Heart Disease, Hypertension, Diabetes. M other: alive, diagnosed with Hypertension. Father-3 [...] tab(s) orally once a day , Taking Colchicine 0.6 MG Tablet 1 tablet Orally once daily , Taking Lisinopril-hydroCHLOROthiazide 20-12.5 MG Tablet 2 tablet Orally Once a day , Taking Metoprolol Succinate ER 100 MG Tablet Extended Release 24 Hour 1 tablet Orally Once a day , Taking Allopurinol 100 MG Tablet 2 tablets Orally Once a day , Medication List reviewed and reconciled with the patient * Allergies: P enicillin: hives. Objective: * Vitals: W t: 244.8, Temp: 97.8, BP: 160/78, HR: 71, Nurse: AARTI, Ht: 72, BMI:33.2. * Examination: C ardiology: General Appearance: p leasant, NAD. H eart sounds: R RR. L ungs: c lear, no rales or wheezes. E xtremities: n o leg edema. ? Assessment: * Assessment: 1. E ssential hypertension - I10 (Primary) 2 . I FG (impaired fasting glucose) - R73.01 3 . D yslipidemia - E78.5 4 . H ypertriglyceridemia - E78.1 5 . P rimary insomnia - F51.01 6 . N on morbid obesity - E66.9 7 . C hronic idiopathic gout - M1A.00X0 Plan: * Treatment: Value Reference Range A /G Ratio 1.4 1.1-2.5 - * A lbumin 4.2 3.5-5.3 - g/dL * A lkaline Phosphatase 102 40-129 - IU/L * A LT (SGPT) 22 <5-55 - IU/L * A ST (SGOT) 24 <5-46 - IU/L * B ilirubin, Total 0.3 <0.2-1.2 - mg/dL * B UN 26 H 6-20 - mg/dL * C alcium 10.1 8.6-10.4 - mg/dL * C hloride 103 97-108 - mmol/L * C O2 28 20-32 - mmol/L * C reatinine 1.17 0.70-1.30 - mg/dL * G lucose 134 H 65-99 - mg/dL * P otassium 4.2 3.5-5.3 - mmol/L * S odium 143 135-145 - mmol/L * P rotein 7.1 6.0-8.3 - g/dL * e GFR by Creatinine 73 >59 - mL/min/1.73m2 * Kelly Morales 11/26/2024 09:1 4:56 AM EDT > See phone encounter ?LAB: P-Microalbumin/Creatinine, Random Urine Sample (Collection Date & Time - 11/25/2024 09:55 AM)?a/c 236* Value Reference Range A lbumin/Creatinine Ratio, Urine 236 H 0-30 - ug /mg * C reatinine, Urine 112.5 - mg/dL * M icroalbumin, Urine, Random 26.6 - mg/dL * Kelly Morales 11/26/2024 09:1 4:56 AM EDT > See phone encounter ?Imaging: sleep study* Kathy Brooks 11/26/2024 11:4 8:51 AM EDT > faxed to [facility] Sleep Study 2.?IFG (impaired fasting glucose)?LAB: Glucose (In-House) (Collection Date & Time - 11/25/2024)?160* Value Reference Range b lood glucose 160 74 - 106 mg/dL * Kaleigh Cordero 11/25/2024 12:24: 49 PM EDT > Kelly Morales 11/26/2024 09:14:56 AM EDT > See phone encounter ?LAB: Glycohemoglobin A1c (in house) (Collection Date & Time - 11/25/2024)? 5.9 Normal* Value Reference Range g lycohemoglobin 5.9% 5 - 6.5 % * Kaleigh Cordero 11/25/2024 12:25: 33 PM EDT > Kelly Morales 11/26/2024 09:14:56 AM EDT > See phone encounter 3.?Dyslipidemia? Refill Rosuvastatin Calcium Tablet, 10 MG, 1 tab(s), orally, once a day, 90 days, 90, Refills 1. ?LAB: P-Comprehensive Metabolic Panel (CMP) (Collection Date & Time - 11/25/2024 09:55 AM)?gluc 134, bun 26* Value Reference Range A /G Ratio 1.4 1.1-2.5 - * A lbumin 4.2 3.5-5.3 - g/dL * A lkaline Phosphatase 102 40-129 - IU/L * A LT (SGPT) 22 <5-55 - IU/L * A ST (SGOT) 24 <5-46 - IU/L * B ilirubin, Total 0.3 <0.2-1.2 - mg/dL * B UN 26 H 6-20 - mg/dL * C alcium 10.1 8.6-10.4 - mg/dL * C hloride 103 97-108 - mmol/L * C O2 28 20-32 - mmol/L * C reatinine 1.17 0.70-1.30 - mg/dL * G lucose 134 H 65-99 - mg/dL * P otassium 4.2 3.5-5.3 - mmol/L * S odium 143 135-145 - mmol/L * P rotein 7.1 6.0-8.3 - g/dL * e GFR by Creatinine 73 >59 - mL/min/1.73m2 * Kelly Morales 11/26/2024 09:1 4:56 AM EDT > See phone encounter ?LAB: P-Lipid Panel (Collection Date & Time - 11/25/2024 09:55 AM)?Normal* Value Reference Range C holesterol / HDL Ratio 2.98 0.00-4.99 - Ratio * C holesterol 128 <200 - mg/dL * H DL Cholesterol 43 >39 - mg/dL * L DL Cholesterol (Calculation) 61 <130 - mg/d L * L DL/HDL Ratio 1.4 <3.3 - Ratio * N on-HDL Cholesterol 85 <130 - mg/dL * T riglycerides 120 <150 - mg/dL * Kelly Morales 11/26/2024 09:1 4:56 AM EDT > See phone encounter ?LAB: P-TSH reflex to FT4 (Collection Date & Time - 11/25/2024 09:55 AM)? Normal* Value Reference Range T SH reflex to FT4 1.38 0.43-5.25 - mU/L * Kelly Morales 11/26/2024 09:1 4:56 AM EDT > See phone encounter 4.?Primary insomnia?Imaging: sleep study* Kathy Brooks 11/26/2024 11:4 8:51 AM EDT > faxed to [facility] Sleep Study 5.?Non morbid obesity?Imaging: sleep study* Kathy Brooks 11/26/2024 11:4 8:51 AM EDT > faxed to [facility] Sleep Study 6.?Chronic idiopathic gout?LAB: P-Uric Acid (Collection Date & Time - 11/25/2024 09:55 AM)?Normal* Value Reference Range U ludmila Acid 6.4 3.4-8.0 - mg/dL * Kelly Morales 11/26/2024 09:1 4:56 AM EDT > See phone encounter 7.?Others? Refill Allopurinol Tablet, 100 MG, 2 tablets, Orally, Once a day, 90 days, 180, Refills 1.? * Procedure Codes: 8 2950 GLUCOSE TEST, [address] GLYCATED HEMOGLOBIN TEST, Modifiers: QW , 3044F HG A1C LEVEL LT 7.0%, 1036F TOBACCO NON-USER * Follow Up: 2 Months CDL physical * Images: Billing Information: * Visit Code: 89840 Office Visit, Est Pt., Level 4. * Procedure Codes: 14859 GLUCOSE TEST. 02768 GLYCATED HEMOGLOBIN TEST. Modifiers: QW 3044F HG A1C LEVEL LT 7.0%. 1036F TOBACCO NON-USER. * Electronic signature of Ifrah Hernandez MD on 01/02/2025 at 06:42 AM EDT Sign off status: Pending * Provider: Mauricio Hernandez M.D. Date: 0 11/25/2024 Generated for Mukund ventura/Jo Ann/Nildaitting on: 1 06:42 AM EDT History and Physical Notes * HPI (History of Present Illness) Category Sub-Category Detail Notes Category Not es Cardiology Blood Pressure Elevated Pt. here for check up on Hypertension. Pt states he does need refills on all of his medications but Metoprolol Hyperlipidemia Pt is fasting today Psychology Anxiety Pt states he has bad mood swings and feels anxious alot. 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 Pt states his BMI is higher than it should be and his neck measured 17 . Pt states he does have issues sleeping but he does not snore at night while asleep Examination Category Sub-Category Detail Notes Category Not es Cardiology Lungs: clear, no rales or wheezes Heart sounds: RRR Extremities: no leg edema General Appearance: pleasant, NAD
--- OUTSIDE RECORDS SUMMARY | 2025-01-02 06:42 | XMS_ITS | Encounter Summary ---
Author Organization Healthcare Address [address] [place] [address] Care Team Providers Care Careers Adviser Name Role Phone Megan Nuñez Primary Care Provider [phone] Encounter Details Date Type Department Care Team (Late st Contact Info) Description 06/03/2024 Orders Only External Location [address] [place] [address] Provider, External Social History Tobacco Use Types [...] 0 06/03/2024 10:58 AM Melvin Cruz * How difficult have these problems made it for you to do your work, take care of things at home, or get along with other people? Answer Date of Assessment Author Not difficult at all 06/03/2024 10:58 AM Melvin Tuttle documented as of this encounter Plan of Treatment Upcoming Encounters Date Type Department Care Team ([facility] Contact Info) Description 01/06/2025 10:00 AM EDT Office Visit Medical Office Building Urology [address] [facility], [address] [place] [address] Vimal Patton MD [address] [facility] [address] [place] [address] documented as of this encounter [...] documented as of this encounter Care Teams Careers Adviser Relationship Specialty Start Date End Date Megan Nuñez PA [address] [place] [address] [address] [place] [address] PCP - General 08/08/23 documented as of this encounter
--- OUTSIDE RECORDS SUMMARY | 2025-01-02 06:43 | XMS_ITS | Patient Health Record ---
Author Organization [facility] Address [address] [place] [id number] Care Team Providers Care Screedman Name Role Phone Keely Murray Primary Care Provider [phone] Mary James Unavailable [phone] Megan Nuñez Unavailable [phone] Allergies Allergen (clinical drug ingredient) Drug/Non Drug [...] Interpretation:gluc 134, bun 26 Performing Lab: Notes/Report: Test performed by [facility], [facility] [address] [place] [address] , [address], [place] [address] Cyrus Roca MD, [employer] CLIA: [id number] Sodium 143 135-145 mmol/L Potassium 4.2 3.5-5.3 [...] Interpretation:Normal Performing Lab: Notes/Report: Test performed by [facility], [address] , [address] , [place] [address] Cyrus Roca MD, [employer] CLIA: [id number] Cholesterol 128 <200 mg/dL Triglycerides 120 <150 [...] Interpretation:Normal Performing Lab: Notes/Report: Test performed by [facility] [address] [place], [place] [address] , [address], [place] [address] Cyrus Roca MD, [employer] CLIA: [id number] TSH reflex to FT4 1.38 0.43-5.25 mU/L P-Microalbumin/Creatinine, R andom Urine Sample Reviewed date:11/26/2024 09:15:01 AM Interpretation:a/c 236 Performing Lab: Notes/Report: Test performed by [facility] [address] [place], [place] [address] , [address], [place] [address] Cyrus Roca MD, [employer] CLIA: [id number] Albumin/Creatinine Ratio, Urine 236 0-30 ug/mg Microalbumin, Urine, Random 26.6 Creatinine, Urine 112.5 P-Uric Acid Reviewed date:11/26/2024 09:15:01 AM Interpretation:Normal Performing Lab: Notes/Report: Test performed by [facility], [address] , [address], [place] [address] Cyrus Roca MD, [employer] CLIA: [id number] Uric Acid 6.4 3.4-8.0 mg/dL Urinalysis - Inhouse Reviewed date:07/29/2024 04:28:07 PM Interpretation: Performing Lab: Notes/Report: Color/Clarity yellow/clear Leuk Neg Nitrite Neg Urobili 3.2 Protein Neg pH 6.0 Blood Trace-Intact Sp. Gr. 1.010 Ketone Neg Bili Neg Gluc Neg P-Uric Acid Reviewed date:02/09/2024 08:54:14 AM Interpretation: Performing Lab: Notes/Report: Test performed by [facility] [address] , [facility], [place] [address] Cyrus Roca MD, [employer] CLIA: [id number] Uric Acid 9.0 3.4-8.0 mg/dL P-Uric Acid Reviewed date:02/28/2024 08:53:40 AM Interpretation: Performing Lab: Notes/Report: Test performed by [facility] [address] , [facility], [place] [address] Cyrus Roca MD, [employer] CLIA: [id number] Uric Acid 6.0 3.4-8.0 mg/dL P-Uric Acid Reviewed date:01/19/2024 08:50:54 AM Interpretation: Performing Lab: Notes/Report: Test performed by [facility] [address] , [facility], [place] [address] Cyrus Roca MD, [employer] CLIA: [id number] Uric Acid 8.6 3.4-8.0 mg/dL P-Sed Rate (ESR) Reviewed date:01/19/2024 08:50:54 AM Interpretation: Performing Lab: Notes/Report: Test performed by [facility] [address] , [facility], [place] [address] Cyrus Roca MD, [employer] CLIA: [id number] Erythrocyte Sedimentation Rate (ESR), Automated 18 <21 mm/hr Reason For Referral No Information Medications Medication SIG (Take, Route, Frequency, Duration) Notes Start Date End Date Status Colchicine 0.6 MG 1 tablet Orally once daily Active EQ All Day Allergy Relief 10 MG Take 1 tablet by mouth once daily; Duration: 30 Active Flomax 0.4 MG 1 capsule Orally Onc e a day; Duration: 30 day(s) Active amLODIPine Besylate 5 MG 1 tablet Orally Once a day; Duration: 90 days 12/27/2024 Active CoQ-10 100 MG 1 cap(s) orally once a day; Duration: 30 day(s) 01/28/2022 Active Irbesartan 300 MG 1 tablet Orally Once a day; Duration: 90 days 11/25/2024 Active Allopurinol 100 MG 2 tablets Orally Onc e a day; Duration: 90 days 10/24/2024 Active Metoprolol Succinate ER 100 MG 2 tablet Orally Once a day Active Rosuvastatin Calcium 10 MG 1 tab(s) oral ly once a day; Duration: 90 days Active Immunizations Vaccine Route Administration Date Status [...] W/U Status Risk Notes Problem Essential hypertension (55334140) Essential hypertension (I10) Active confirmed Problem Hypertriglyceridemia (828186273) Hypertriglyceridemia (E78.1) Active confirmed Problem Sciatic nerve lesion (328224774) Piriformis syndrome of right side (G57.01) Active confirmed Problem Morbid obesity (disorder) (141782396) Morbid (severe) obesity due to excess calories (E66.01) Active confirmed Problem Primary insomnia (7816076) Primary insomnia (F51.01) Active confirmed Problem Erectile dysfunction (disorder) (211344546) Erectile dysfunction, unspecified erectile dysfunction type (N52.9) Active confirmed Problem Insomnia (885886932) Insomnia, u nspecified type (G47.00) Active confirmed Problem Dyslipidemia (890971631) Dyslipidemia (E78.5) Active confirmed Problem Skin sensation disturbance (69558406) Paresthesias in right hand (R20.2) Active confirmed Problem Impaired fasting glycaemia (392144844) IFG (impaired fasting glucose) (R73.01) Active confirmed Problem Gout (51323904) Acute gout of ri ght foot, unspecified cause (M10.9) Active confirmed Problem Obesity (863970040) Non morbid o besity (E66.9) Active confirmed Problem Allergic rhinitis (70186404) Allergic rhinitis, unspecified seasonality, unspecified trigger (J30.9) Active confirmed Problem Chronic gouty arthritis (97839068) Chronic idiopathic gout (M1A.00X0) Active confirmed Vital Signs Heart Rate 71 /min 11/25/2024 Blood pressure diastolic 78 mm Hg 11/25/2024 Height 72 in 11/25/2024 Blood pressure systolic 160 mm Hg 11/25/2024 Weight 244.8 lbs 11/25/2024 BMI 33.2 kg/m2 11/25/2024 Encounters Encounter Location Date Provider Diagnosis [facility] [address] [place], [place] [id number] 01/18/2024 Megan Crowdy Acute gout of right foot, unspecified cause M10.9 [facility] [address] [place], [place] [id number] 02/08/2024 Megan Crowdy Acute gout of right foot, unspecified cause M10.9 [facility] [address] [place] [id number] 02/23/2024 Megan Crowdy Acute gout of right foot, unspecified cause M10.9 and Hyperuricemia E79.0 [facility] [address] [facility] [address] [place], [place] [id number] 05/20/2024 James [place] Essential hypertensi on I10 [facility] [address] [facility] [address] [place], [place] [id number] 05/27/2024 James [place] Essential hypertensi on I10 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 [facility] [address] [place], [place] [id number] 09/16/2024 James [place] Essential hypertensi on I10 [facility] [address] [place], [place] [id number] 11/25/2024 James [place] Essential hypertensi on I10 ; IFG (impaired fasting glucose) R73.01 ; Dyslipidemia E78.5 ; Hypertriglyceridemia E78.1 ; Primary insomnia F51.01 ; Non morbid obesity E66.9 and Chronic idiopathic gout M1A.00X0 [facility] [address] [place], [place] [id number] 01/19/2024 Megan Crowdy [facility] [address] [place] [id number] 02/09/2024 Megan Crowdy [facility] [address] [place] [id number] 02/28/2024 Megan Crowdy Acute gout of right foot, unspecified cause M10.9 [facility] [address] [place] [id number] 05/24/2024 James [place] [facility] [address] [place], [place] [id number] 10/24/2024 Keely Murray Essential hypertensi on I10 [facility] [address] [place], [place] [id number] 10/24/2024 Keely Murray [facility] [address] [place] [id number] 11/26/2024 James [place] [facility] [address] [place] [id number] 12/16/2024 Keely Murray [facility] [address] [place], [place] [id number] 12/19/2024 James Hernandez [facility] [address] [place] [id number] 12/26/2024 James Hernandez Assessments Encounter Date Diagnosis (ICD Code) Assessment Notes Treatment Notes Treatment Clinical Notes Section Notes 02/23/2024 Acute gout of right foot, unspecified cause (ICD-10 - M10.9) 02/28/2024 Acute gout of right foot, unspecified cause (ICD-10 - M10.9) 05/20/2024 Essential hypertensi on (ICD-10 - I10) Not at goal today 05/27/2024 Essential hypertensi on (ICD-10 - I10) 06/17/2024 Essential hypertensi on (ICD-10 - I10) 06/17/2024 Dyslipidemia (ICD-10 - E78.5) 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 11/25/2024 IFG (impaired fastin g glucose) (ICD-10 - R73.01) 02/23/2024 Hyperuricemia (ICD-1 0 - E79.0) 11/25/2024 Dyslipidemia (ICD-10 - E78.5) 06/17/2024 Chronic idiopathic g out (ICD-10 - M1A.00X0) 11/25/2024 Hypertriglyceridemia (ICD-10 - E78.1) 11/25/2024 Primary insomnia (ICD-10 - F51.01) 11/25/2024 Non morbid obesity (ICD-10 - E66.9) 11/25/2024 Chronic idiopathic g out (ICD-10 - M1A.00X0) Plan Of Treatment Pending Test Test Name Order Date sleep study 11/25/2024 Next Appt Details Provider Name:James Paz ry, 01/27/2025 11:30:00 AM, [address], [place], [place], [id number], Insurance Providers Payer Name Payer Address Payer Phone Subscriber Number Group Number Insured Name Patient Relationship to Insured Coverage Start Date Coverage End Date [employer] [address] [place] [address] [id number] RAMSES LICEA Self - patient is the [...] 2014 Colonoscopy 2016 Upper GI Scope 2016 prostatectomy at September 2024
--- OUTSIDE RECORDS SUMMARY | 2025-01-02 06:44 | XMS_ITS | Encounter Summary ---
Author Organization Healthcare Address [address] [place] [address] Care Team Providers Care Consultant Intern Name Role Phone Megan Nuñez Primary Care Provider [phone] Reason for Visit * Reason Onset Date Comments HCN Clinical Concern/Question 10/09/2024 Encounter Details Date Type Department Care Team (Late st Contact Info) Description 10/09/2024 Telephone ID Clinic Urology [address], [address] [place] [address] Vimal Patton MD [address] [place] [address] HCN Clinical Concern/Question Social History Tobacco Use Types Packs/Day Years Used Date Smoking Tobacco: Former Cigarettes Smokeless Tobacco: Never Alcohol Use Standard Drinks/Week Comments Not Currently 0 (1 standard drink = 0.6 oz pur e alcohol) PHQ-2 Answer Date Recorded Patient Health Questionnaire-2 Score 0 10/07/2024 PHQ-9 Answer Date Recorded Patient Health Questionnaire-9 Score 0 06/03/2024 AUDIT-C Answer Date Recorded Q1: How often do you have a drink containing alcohol? Never 10/07/2024 Q2: How many drinks containi ng alcohol do you have on a typical day when you are drinking? Patient does not drink Q3: How often do you have si x or more drinks on one occasion? Never 10/07/2024 Sex and Gender Information Value Date Recorded Sex Assigned at Male 06/30/2023 5:24 PM EDT Legal Sex Male 2:46 PM EDT Gender Identity Male 06/30/2023 5:24 PM EDT Sexual Orientation Straight 06/30/2023 5: 24 PM EDT documented as of this encounter Miscellaneous Notes * Telephone Encounter - Chidi Gilmore MD - 10/09/2024 7:28 PM EDT Spoke with patient's . Pt has been having daily soft BM. Recommended that he can started tapering off his katherin-colace as that can stimulate bowels and cause cramps, as long as he is stooling fine. Also said that Mylanta is okay. Recommend no baths for another 1-2 more weeks until incisions have fully healed. * Telephone Encounter - Oseas Khan - 10/09/2024 12:56 PM EDT Called and spoke with pt's (July) and pt in the background. They state pt is experiencing strong stomach cramps on the right side. States his last BM was this morning. Pt is currently taking katherin-colace as prescribed. They wanted to know if there is anything else he can take for these stomachpains such as mylanta. In the meantime advised pt to stay hydrated, continue his katherin-colace, and supplement with fiber such as metamucil or psyllium. Pt wanted to know if he can begin taking tub baths. He is currently following d/c notes to only shower. * Telephone Encounter - Ondina Camargo - 10/09/2024 11:13 AM EDT Clinical Concern/Question Reason for Call: pt called stating that pt is having trouble with BM since procedure and a lotof cramping. Asking if they can use mylanta or any other rec? Please call karina. Also would like to know when it is okay to wash around incisions. Best contact number: Other: [phone] Optimal time of day to reach caller: ANYTIME Additional comments/information from caller: None Note: Please do not reply to this message. Follow-up communication and further actions as a result of this message need to be communicated with the patient directly, if the patient is not active onMyChart. If the patient is active on MyChart, they will receive notification of the communication/outcome via MyChart. documented in this encounter Plan of Treatment Upcoming Encounters Date Type Department Care Team (Late st Contact Info) Description 01/06/2025 10:00 AM EDT Office Visit Medical Office Building Urology [address] [facility], [address] [place] [address] Vimal Patton MD [address] [place] [address] documented as of this encounter Visit Diagnoses Not on filedocumented in this encounter Additional Health Concerns Assessment Noted Time PHQ-9 Depression Total Score: 0 06/04/19 25 10:58 AM EST A fall risk assessment has been complete d for the patient 10/07/2024 11:51 AM EDT A Body Mass Index follow-up plan has been documented for the patient 10/07/2024 4:47 PM EDT documented as of this encounter Care Teams Consultant Intern Relationship Specialty Start Date End Date Megan Nuñez PA [facility] [address] [place] [address] PCP - General 08/08/23 documented as of this encounter
--- OUTSIDE RECORDS SUMMARY | 2025-01-02 06:44 | XMS_ITS | Encounter Summary ---
Author Organization Healthcare Address [address] [place] [address] Care Team Providers Care Sawsmith Name Role Phone Megan Nuñez Primary Care Provider [phone] Encounter Details Date Type Department Care Team ([facility] Contact Info) Description 09/01/2023 Lab Requisition [facility] [address] [place] [address] Vimal Patton MD [address] [address] Elevated prostate specific antigen (PSA) [...] Department Care Team (Late Contact Info) Description 01/06/2025 10:00 AM EDT Office Visit Medical Office Building Urology [address] [facility], [address] [place] [phone] Vimal Patton MD [address] [address] documented as of this encounter Procedures Procedure Name Priority Date/Time Associated Diagnosis Comments SURGICAL PATHOLOGY CONSULT Routine 09/01/2023 10:52 AM EDT Elevated prostate specific antigen (PSA) documented in this encounter Results * Surgical Pathology Consult (09/01/2023 10:52 AM EDT) Case Report Sugical Pathology Consult Case: [id number] Authorizing Provider: Vimal Patton MD Collected: 09/01/2023 1052 Ordering Location: [facility] Lab Received: 09/01/2023 1052 Pathologist: Kusum Serrano MD Specimen: Prostate, [id number] 09/01/2023 11:14 AM EDT [facility] Final Diagnosis PROSTATE, RIGHT APEX, NEEDLE CORE BIOPSY (OUTSIDE , COLLECTED 09/15/22): -PROSTATIC ADENOCARCINOMA, PATRICK'S 3+3 (GRADE GROUP 1), INVOLVING 20% OF ONE OF TWO CORES. 09/01/2023 11:14 AM EDT [facility] at 1114 EDT Clinical Information R97.20 - Elevated prostate specific antigen (PSA) [ICD-10-CM] 09/01/2023 11:14 AM EDT [facility] Gross Description A. [id number] Received along with a corresponding pathology report from [facility] are 2 slides labeled outside case: [id number] collected on 09/15/2022. 09/01/2023 11:14 AM EDT [facility] Tissue Prostate / Unknown 10:52 AM EDT 09/01/2023 10:52 AM EDT us Vimal Patton MD LAB PATHOLOGY ORDERABLES Fi nal Result [facility] [address] [place] [address] documented in this encounter Visit Diagnoses Diagnosis Elevated prostate specific antigen (PSA) documented in this encounter Care Teams Sawsmith Relationship Specialty Start Date End Date Megan Nuñez PA [address] [place] [address] PCP - General 08/08/23 documented as of this encounter
--- OUTSIDE RECORDS SUMMARY | 2025-01-02 06:44 | XMS_ITS | Clinical Summary ---
Author Organization [facility] Address [address] [place] [address] Care Team Providers Care Trader Fixed Income Name Role Phone Megan Nuñez Primary Care Provider [phone] Allergies Active Allergy Reactions Criticality Noted Date [...] to 8 doses. 8 tablet 5 Active methocarbamol (Robaxin) 750 MG tablet Take 1 tablet by mouth 4 times a day for 10 days. 40 tablet 5 Active ibuprofen 600 MG tablet Take 1 [...] other nostril if symptoms continue 1 each Active Active Problems Problem Noted Date Diagnosed Date Prostate cancer 08/06/2024 Obesity (BMI 35.0-39.9 without comorbidity) 07/02 Severe obesity (BMI 35.0-39.9) with comorbidity 07/17/2024 Encounters Date Type Department Care Team Description 12/26/2024 Telephone [facility] Urology [address] [place] [address] Vimal Patton MD 10/09/2024 Telephone [facility] Urology [address] [place] [phone] Vimal Patton MD HCN Clinical Concern/Question 10/09/2024 Telephone [facility] Urology [address] [facility], [address] [place] [phone] Vimal Patton MD HCN Paperwork/Documentati on Request; [facility]CN Clinical Concern/Question 10/07/2024 12:15 PM EDT Office Visit Medical Office Building Urology [facility], [address] [place] [address] Vimal Patton MD Prostate cancer ([facility]) (Primary Dx) 10/07/2024 Travel 10/05/2024 Telephone [facility] [address] [place] [address] Kodi Lo MD 10/04/2024 Travel from Last 3 Months Family History Medical History Relation Name Comments Heart disease Father Emery Gordon Hypertension Father Emery Gordon Cancer Maternal Grandfather Roel Trent Kidney disease Maternal Grandfather Roelmylene Trent Prostate cancer Maternal Grandfather Roelmylene Trent Cancer Maternal Grandmother Hypertension Mother Bruno Gordon Chronic Leukemia Paternal Grandmother Relation Name Status Comments Father Emery Gordon Alive Maternal Grandfather Roel Trent Alive Maternal Grandmother Mother Bruno Gordon Alive Paternal Grandmother Social History Tobacco Use Types Packs/Day Years Used Date Smoking Tobacco: Former Cigarettes Smokeless Tobacco: Never Tobacco Cessation:Counseling Given: Not Answered Alcohol Use Standard Drinks/Week Comments Not Currently [...] Sign Reading Time Taken Comments Blood Pressure 115/75 10/07/2024 11:44 AM EDT Pulse 65 10/07/2024 11:44 AM EDT Temperature 37.2 C (99 F) 09/27/2024 11:50 AM EDT Respiratory Rate 18 09/27/2024 5:00 PM EDT Oxygen Saturation 98% 10/07/2024 11:44 AM EDT Inhaled Oxygen Concentration - - Weight 118 kg (260 lb) 10/07/2024 11:44 AM EDT Height 182.9 cm (6') 10/07/2024 11:44 AM EDT Body Mass Index 35.26 10/07/2024 11:44 AM EDT Plan of Treatment Upcoming Encounters Date Type Department Care Team ([facility] st Contact Info) Description 01/06/2025 10:00 AM EDT Office Visit Medical Office Building Urology [address] [facility], [address] [place] [address] Vimal Patton MD [address] [place] [address] Health Maintenance Due Date Last [...] 2013 Sigmoidoscopy 2013 [facility]-Colorectal Cancer Screening 2013 [id number] Vaccine ( season) 2024 02/10/2022, 04/30/2021, 08/08/2020, Additional history exists [facility]-Influenza Vaccine (#1) 12/02/202412/09, 12/16/2022, 02/10/2022, Additional history exists [facility]-Depression Screening 10/07/2025 10/07/2024, 03/06/2024 [facility]-DTaP,Tdap,and Td Vaccines (2 - Td or Tdap) 03/28/2029 03/28/2019 [facility]-Zoster Vaccines Completed 02/22/2023, [facility]-Obesity Intervention Completed 025, 07/17/2024, 06/03/2024, Additional history exists HPV Vaccines Aged Out [...] on patient's age to complete this topic Insurance [employer] Advance Directives * Full Code (Latest Code Status on File) Date Activated Date Inactivated Comments 09/27/2024 12:36 PM 09/27/2024 8:19 PM Question Answer Comments I have reviewed the capacity from the link above and, if needed, have updated to appropriate status: Yes Care Teams Trader Fixed Income Relationship Specialty Start Date End Date Megan Nuñez PA [address] [place] [address] [address] [place] [address] PCP - General 08/08/23
--- OUTSIDE RECORDS SUMMARY | 2025-01-02 06:44 | XMS_ITS | Data Portability ---
Author Organization EVAN KENNY Asencio BLAINE CLOSED Address [address] [place] [address] Care Team Providers Care Water Systems Engineer Name Role Phone IOANA HARRIS Referring Provider [...] recheck of PSA in approximately 1 month. [email or web address] Not available 07/17/2022 12:59:46 08/12/2022 08/12/2022 PSA has risen, l ow percent free PSA. Concerning for risk of prostate cancer. Recommend transrectal ultrasound needle biopsy of prostate. Not available 08/14/2022 13:17:21 09/15/2022 09/15/2022 SURGERY [...] home with instructions for outpatient follow up. [email or web address] Not available 09/15/2022 09:49:38 Plan of Treatment Reminders Order Date Submit Date Provider Last Modified By Organization Details Last Modified Time Details Appointments None recorded. Lab urinalysis panel, auto 2022 023 [email or web address] [facility], [address] [place] [address] , [facility], [place], [address], 3 13:18:04 PSA, total + free, serum or plasma 2022 023 [facility], [address] [place] [address], [address], 3 15:30:01 Referral physical therapist referral 2017 018 [email or web address] Not available 8 09:55:26 Procedures None recorded. Surgeries prostate needle biopsy (SURG) 2022 023 [email or web address] [facility] Professional Charges, [address] [facility], [address], [place], [address], 3 16:10:26 Imaging XR, lumbosacra l spine, 2 or 3 view, bending only 2017 018 [facility], [address] [place], [address], 8 12:20:36 MRI, lumbar spine, w/o contrast 2017 018 [facility], [address] [place], [address], 8 15:31:31 Medication Orders Cipro 500 mg tablet 2022 023 [facility], [address], [address], 3 13:17:17 levofloxac in 500 mg tablet [address] [facility], [address], [address], 3 12:56:41 allopurino l 300 mg tablet 2017 018 [facility] [id number], [address] [place] [address], [address], 8 10:34:05 Patient TargetsNo targets recorded. Patient Instructions Encounter Date Encounter Id Patient Instructions Last Modified By Organization Details Last Modified Time 06/29/2017 [id number] neck pain: care instructions smoberly Not available [...] Instructions smoberly Not available 07/05/2017 10:31:44 08/12/2022 [id number] learning about healthy weight Not available 08/12/2022 13:18:04 Reason for Referral [...] INFLA MMATO RY ACTIV ITY. Not Available [facility] [address] [place], [address], 06/16/2017 12:26:46 06/17/19 18 06/16/2017 uric acid, serum or plasm a uric acid 7.4 mg/dL 4.0-7. 6 normal Not Available [facility] [address] [place], [address], 06/16/2017 12:26:47 06/17/19 18 06/16/2017 TSH, serum or plasm a TSH 0.958 uIU/m L 0.290- 5.500 normal Not Available [facility] [address] [place], [address], 06/16/2017 12:32:06 06/17/19 18 06/16/2017 T3, total , serum T3, total 140.3 NG/dL 80.0-2 00.0 normal Not Available [facility] [address] [place] [address], [address], 06/16/2017 12:35:26 06/17/19 18 06/16/2017 T4, total , serum T4 (thyroxine) 7.17 ug/dL 4.50-1 1.70 normal Not Available [facility] [address] [place] [address], [address], 06/16/2017 12:35:27 06/17/19 18 06/16/2017 hepat itis (A+B+ C) panel , serum hepatitis B surface Ag NON-RE ACTIVE non-re active normal Not Available [facility] [address] [place] [address], [address], 06/19/2017 13:36:13 06/17/19 18 06/19/2017 hepat itis (A+B+ C) panel , serum hepatitis A Ab, IgM NON-RE ACTIVE non-re active normal TEST PERFO RMED AT: [facility] [address] [place] [address] RICO Rahman MD Not Available [facility] [address] [place] [address], [address], 06/19/2017 13:36:13 06/17/19 18 06/19/2017 hepat itis (A+B+ C) panel , serum hepatitis B core Ab,IgM NON-RE ACTIVE non-re active normal TEST PERFO RMED AT: [facility] [address] [place] [address] RICO Rahman MD Not Available [facility] [address] [place] [address], [address], 06/19/2017 13:36:13 06/17/19 18 06/19/2017 hepat itis (A+B+ C) panel , serum hepatitis C Ab NON-RE ACTIVE non-re active normal Not Available [facility] [address] [place] [address], [address], 06/19/2017 13:36:13 06/17/19 18 06/19/2017 hepat itis (A+B+ C) panel , serum hcab cutoff 0.02 <1.00 normal TEST PERFO RMED AT: [facility] [employer] [facility]EL [address] [place] [address] RICO Rahman MD Not Available [facility] [address] [place] [address], [address], 06/19/2017 13:36:13 06/17/19 18 06/16/2017 vitam in B12, serum vitamin B12 363 pg/mL 232-12 45 normal Not Available [facility] [address] [place] [address], [address], 06/16/2017 13:14:08 06/17/19 18 06/16/2017 vitam in D, 25-hy droxy , total , serum vitamin D 25-oh, total 38 NG/mL >=30 NG/mL normal Not Available [facility] [address] [place] [address], [address], 06/16/2017 13:14:28 06/17/19 18 06/18/2017 ccp (cycl ic citru llina rika pepti de) iga+i gg, serum anti-ccp <16 units normal Refer ence Range Negat dain: <20 Weak Posit dain: 20-39 Moder ate Posit dain: 40-59 Stron g Posit dain: >59 TEST PERFO RMED AT: [facility] [address] [place] [address] RICO Rahman MD Not Available [facility] [address] [place] [address], [address], 06/18/2017 17:15:36 06/17/19 18 06/22/2017 infla mmato [...] to S cerev isiae . Not Available [facility] [address] [place] [address], [place], [address], 06/22/2017 01:10:30 06/17/19 18 06/22/2017 infla mmato [...] PERFO RMED AT: [facility] [address] [place] [address] Meche GAONA,PHD ,GENNY Not Available [facility] [address] [place], [address], 06/22/2017 01:10:30 06/17/19 18 06/22/2017 infla mmato [...] with Crohn 's disea se. Not Available [facility] [place], [address], 06/22/2017 01:10:30 06/17/19 18 06/22/2017 infla mmato [...] in activ e disea se. Not Available [facility] [address] [place], [address], 06/22/2017 01:10:30 06/17/19 18 06/22/2017 infla mmato ry bowel disea se Ab panel , serum proteinase-3 Ab <1.0 ai <1.0 normal <1.0 AI No Antib la Detec rika > or = 1.0 AI Antib la Detec rika Autoa ntibo dies to prote inase -3 (FL-3 ) are accep rika as puma cteri stic for granu lomat osis with polya ngiit is (SHEILA, Jasper er's) , and are detec table in 95% of the histo logic ally prove n cases . The cytop lasrachid iraheta rn, (c-AN BRAULIO), is based large ly on autoa ntibo dy to FL-3 which serve s as the prima ry antig en. These autoa ntibo dies are prese nt in activ e disea se. Not Available [facility] [address] [place], [address], 06/22/2017 01:10:30 06/17/19 18 06/19/2017 thyro id panel , serum thyroid peroxidase Ab 1 IU/mL <9 normal TEST PERFO RMED AT: [facility] [address] [place] [facility] [place] [address] RICO Rahman MD Not Available [facility] [address] [place], [address], 06/19/2017 13:36:15 06/17/19 18 06/19/2017 thyro id panel , serum thyroglobuli n Ab <1 IU/mL < or = 1 normal TEST PERFO RMED AT: [facility] [address] [place] [address] RICO Rahman MD Not Available [facility] [address] [place] [address], [address], 06/19/2017 13:36:15 08/13/19 23 08/12/2022 PSA, TOTAL [...] n testi ng of Free PSA is kne ed. Test metho d is based on WHO-s tanda rdize d calib ratio n using the Fadia Fabiola E801 prakash zer. PSA resul ts by diffe rent test proce dures canno t be direc tly rkishna red with one anoth er. . Not Available [facility] [address] [place] [address], [address], 08/12/2022 15:30:01 08/13/19 23 08/12/2022 PSA, TOTAL AND FREE free PSA 0.41 NG/mL normal Test metho d is based on WHO-s tanda rdize d calib ratio n using the Fadia E801 prakash zer. Free PSA resul ts by diffe rent test proce dures canno t be direc tly krishna red with one anoth er. Not Available [facility] [address] [place] [address], [address], 08/12/2022 15:30:01 08/13/19 23 08/12/2022 PSA, TOTAL AND FREE % free PSA 8 % normal ____ PSA ng/mL % FREE PSA Proba bilit y of Prost ate Cance r % ____ Less than 4.00 N/A 17% 4.0 - 10.0 0-10 56% 10-15 28% 15-20 20% 20-25 16% Great er than 25 8% Great er than 10.0 N/A 49% ____ Not Available [facility] [address] [place], [address], 08/12/2022 15:30:01 08/13/19 23 08/12/2022 urina lysis panel , auto Unknown Analyte Clean Catch Not Available [facility] With [address] [facility], [place], [address], 08/12/2022 13:11:11 08/13/19 23 08/12/2022 urina lysis panel , auto Unknown Analyte Yellow Not Available [facility] With [address] [facility], [place], [address], 08/12/2022 13:11:11 08/13/19 23 08/12/2022 urina lysis panel , auto Unknown Analyte Clear Not Available [facility] With [address] [place] [address], [address], 08/12/2022 13:11:11 08/13/19 23 08/12/2022 urina lysis panel , auto Unknown Analyte 1.010 Not Available [facility] With [address], [place], [address], 08/12/2022 13:11:11 08/13/19 23 08/12/2022 urina lysis panel , auto Unknown Analyte 1.003- 1.035 Not Available [facility] With [address], [place], [address], 08/12/2022 13:11:11 08/13/19 23 08/12/2022 urina lysis panel , auto Unknown Analyte 7.0 Not Available [facility] With [address], [place], [address], 08/12/2022 13:11:11 08/13/19 23 08/12/2022 urina lysis panel , auto Unknown Analyte 5.0-8. 0 Not Available [facility] With [place] [address], [place], [address], 08/12/2022 13:11:11 08/13/19 23 08/12/2022 urina lysis panel , auto Unknown Analyte Negati ve Not Available [facility] With [place] [address] [address], [place], [address], 08/12/2022 13:11:11 08/13/1908/12/2022 urina lysis panel , auto Unknown Analyte Negati ve Not Available [facility] With [address], [place], [address], 08/12/2022 13:11:11 08/13/19 23 08/12/2022 urina lysis panel , auto Unknown Analyte Negati ve Not Available [facility] With [address], [place], [address], 08/12/2022 13:11:11 08/13/19 23 08/12/2022 urina lysis panel , auto Unknown Analyte Negati ve Not Available [facility] [place] [address], [place], [address], 08/12/2022 13:11:11 08/13/1908/12/2022 urina lysis panel , auto Unknown Analyte Negati ve Not Available [facility] With [address], [place], [address], 08/12/2022 13:11:11 08/13/19 23 08/12/2022 urina lysis panel , auto Unknown Analyte Negati ve Not Available [facility] With [place] [address], [place], [address], 08/12/2022 13:11:11 08/13/19 23 08/12/2022 urina lysis panel , auto Unknown Analyte Normal Not Available [facility] [place] [address], [place], [address], 08/12/2022 13:11:11 08/13/19 23 08/12/2022 urina lysis panel , auto Unknown Analyte Normal Not Available [facility] [place] [address], [place], [address], 08/12/2022 13:11:11 08/13/19 23 08/12/2022 urina lysis panel , auto Unknown Analyte Negati ve Not Available [facility] [place] [address], [place], [address], 08/12/2022 13:11:11 08/13/19 23 08/12/2022 urina lysis panel , auto Unknown Analyte Negati ve Not Available [facility] With [address], [place], [address], 08/12/2022 13:11:11 08/13/19 23 08/12/2022 urina lysis panel , auto Unknown Analyte 1 mg/dl Not Available [facility] [place] [address], [place], [address], 08/12/2022 13:11:11 08/13/19 23 08/12/2022 urina lysis panel , auto Unknown Analyte Normal 1 mg/dl Not Available [facility] With [address], [place], [address], 08/12/2022 13:11:11 08/13/19 23 08/12/2022 urina lysis panel , auto Unknown Analyte Negati ve Not Available [facility] [place] [address], [place], [address], 08/12/2022 13:11:11 08/13/19 23 08/12/2022 urina lysis panel , auto Unknown Analyte Negati ve Not Available [facility] [place] [address], [place], [address], 08/12/2022 13:11:11 08/13/19 23 08/12/2022 urina lysis panel , auto Unknown Analyte Negati ve Not Available [facility] [place] [address], [place], [address], 08/12/2022 13:11:11 08/13/19 08/12/2022 urina lysis panel , auto Unknown Analyte Negati ve Not Available [email or web address] [address], [place], [address], 08/12/2022 13:11:11 09/16/1909/15/2022 SURGI CRISS surgical SEE [...] 2.0 cm (2 cores ) C) Left [place] 1.3, 1.4 cm (2 cores ) D) Right Base 1.1, 1.7 cm (2 cores ) E) Right Mid 0.2, 1.4, 1.5 cm (3 cores ) F) Right [place] 1.4, 1.7 cm (2 cores ) PA 09/15 12:31 PM Micro scopi c Descr [...] 16:51 Page 1 of 1 Not Available [facility] [address] [place] [address], [address], 09/17/2022 16:52:12 06/17/19 18 06/16/2017 XR, thora cic spine , [address] [address] Patimylene t Name: RAMSES ROMANDeepthi disla : [...] spine. Interp reted By: Karen Cohen MD [facility] onical ly Signed By: Karen Cohen MD on 018 12:14 PM [email or web address] [facility] [address] [place] [address], [address], 06/16/2017 13:45:02 06/17/19 18 06/16/2017 XR, lumbo sacra l [facility] , [facility] [address] [place] [address] Patimylene t Name: RAMSES disla : 969 [...] spine. Interp reted By: Karen Cohen MD [facility] onical ly Signed By: Karen Cohen MD on 018 12:22 PM [email or web address] [facility] [address] [place], [address], 06/16/2017 13:45:03 06/17/19 18 06/16/2017 XR, chest , 2 view [facility] [address] [place] [address] Patimylene t Name: RAMSES disla : 969 [...] rafael change s. Interp reted By: Karen Coehn MD Electr onical ly Signed By: Karen Cohen MD on 018 12:[email or web address] [place] [address], [address], 06/16/2017 13:45:02 06/17/19 18 06/16/2017 XR, cervi criss spine , 2 or 3 view [facility] [place] [facility] [address] [place] [address], [place] [address] Patimylene t Name: RAMSES disla : 969 [...] By: Karen Cohen MD on 1:02 PM [email or web address] [facility] [address] [place] [address], [address], 06/16/2017 13:45:02 06/28/19 18 06/27/2017 XR, lumbo sacra l spine , 2 or 3 view, bendi ng only [place] [facility] [address] [place] [address] [place] [address] Grisel disla Name: RAMSES disla : 969 [...] Karen Cohen MD on 018 12:15 PM [facility] [address] [place] [address], [address], 06/27/2017 20:47:02 07/01/19 18 06/30/2017 MRI, lumba r spine , w/o contr ast [facility] [address] [place] [address] [place] [address] Grisel t Name: RAMSES disla : 969 Grisel disla Orderi ng Provid er: NICOLENYDIA RODRIGUEZ PS EXAM DATE: 2017 EXAM: MR LUMBAR W/O CONTRA ST HISTOR Y: 46-yea r-old male with low back pain and parest hesia in the legs and groin. COMPAR REHANA: Radiog raph dated 018 FINDIN GS: There is mild grease monkey ior listhe sis of L5 relati ve [...] Patricia chapin MD on 018 3:26 PM [facility] [address], [address], 07/21/2017 16:42:43 Result Notes Documentation Provider Name and Address Organization Details Recorded Time Xr, Lumbosacral Spine, 2 Or 3 View, Bending Only : [place] [address] Patient Name: RAMSES GORDON Patient : 1970 [...] By: Martín Cohen MD TA LEÓN MD [address] [place] [address], [address], [facility] 06/27/2017 16:42:35 Mri, Lumbar Spine, W/o Contrast : [address] [address] Patient Name: RAMSES GORDON Patient : 1970 [...] By: Talat Kirby MD A BENDER PA-C [address] [place] [address], [address], [facility] 07/21/2017 16:42:43 Problems Name Problem SNOMED Code Status Onset Date Resolution Date Notes Provider Name and Address Organization Details Recorded Time Pain of multiple joints 59690859 Active 018 JOANA PEARCE, TREASURY AGENT [address] [place], [address] [facility] 8 10:35:20 Problem Notes None recorded. Procedures Surgical History Date Name Laterality Status Provider Name and Address Organization Details Recorded Time 06/28/19 18 Interpretation completed BILLY STARKEY PA-C [address] [place], [address] 06/27/2017 13:04:52 Tonsillectomy completed Yanet Mcnulty [facility] 07/15/2022 13:33:24 Imaging Results None recorded. Procedure Notes None recorded. Medical Equipment None Reported. Allergies Allergen ID Allergen Name Allergen Category Reaction Reaction Severity Criticality Documentation Date Start Date Code Code System Note Provider Name and Address Organization Details Recorded Time 924550 Product containin g penicilli n (product) medicatio n rash Not available Not available 06/16/2017 58121 8001 SNOMED July [facility] 8 09:50:47 Medications Name Sig Start [...] Body mass index (BMI) Body weight Systolic And Diastolic Provider Name and Address Organization Details Last Updated DateTime 06/27/2017 182.88 cm 34.2 kg/m2 030867.28 g 132/80 mm[Hg] Laura Vega [facility] 06/27/2017 09:31:01 Date Recorded Body height Body mass index (BMI) Body weight Respiratory rate Heart rate Systolic And Diastolic Provider Name and Address Organization Details Last Updated DateTime 8 182.88 cm 33.5 kg/m2 728831. 32 g 18 /min 72 /min 117/68 mm[Hg] Kristy Vale [facility] 8 14:54:00 Date Recorded Body height Body mass index (BMI) Body weight Provider Name and Address Organization Details Last Updated DateTime 07/15/2022 180.34 cm 36.3 kg/m2 061980.02 g Yanet Mcnulty [facility] 07/15/2022 13:32:05 Date Recorded Body height Body mass index (BMI) Body weight Provider Name and Address Organization Details Last Updated DateTime 08/12/2022 180.34 cm 36.3 kg/m2 235723.02 g Demetria Alvarez [facility] 08/12/2022 12:56:27 Social History Question Answer Notes LastModified by Organizat ion Details LastModified Time Tobacco Smoking Status Former Smoker July [facility] 06/16/2017 09:52:54 What Was The Date Of Your Most Recent Tobacco Screening? 08/12/2022 [email or web address] Information not available 08/12/2022 What Is Your [...] Not available 13:32:51 Medical History Condition Response Diabetes N Bleeding Disorder N Arthritis Y Emphysema N Acid Reflux (GERD) N Heart Disease N Rheumatoid Arthritis N Hypertension Y COPD N Asthma N Past Encounters Encounter ID Performer Location Encounter Start Date Encounter Closed Date Diagnosis/Indication Diagnosis SNOMED-CT Code Diagnosis ICD10 Code Diagnosis IMO Codes Diagnosis Note [id number] JOANA PEACRE APRN [facility] [address] [place] [address] 06/16/2017 09:30:35 06/16/2017 12:44:36 Pain of multiple joints 38324557 M25.50 recurring joint pain and tenderness family h/o lupus with recurring back pain, tenderness with negative RF without synovitis or dactylitis today reported swollen joints, backs of the hands and wrists Diarrhea 50782639 R19.7 recurring reported diarrhea worsening fatigue and weakness will assess further ibd panel Fatigue 54727970 R53.83 worsening fatigue with family h/o thyroid issues will assess further tsh and thyroid antibodies panel Vitamin D deficiency 347 41534 E55.9 reported history of the same Vitamin B1 2 deficiency (non anemic) 97569037 E53.8 reported history of the same Low back pain 976188862 M54.5 recurring low back pain and tenderness without injury stiff and limited movment Thoracic back pain 00157 8004 M54.6 middle back pain worsening with stiff and limited movement Neck pain 28307581 M54.2 chronic and recurring limited rom Hyperuricemia 02345460 E 79.0 7.3 elevated along with recurring joint pain will start colchicine at 0.6 mg bid x 2 months Expiratory wheezing 9763 007 R06.2 right sided wheezing; rales in lower base [id number] BILLY STARKEY PA-C [facility] [address] [place] [address] 06/27/2017 08:34:23 06/27/2017 16:00:05 Spondylolisthesis 058107057 M43.10 46M with chronic low back pain [...] imaging completed. Pt agrees with this plan. [id number] JOANA PEARCE APRN [facility] [address] [place] [address] 06/29/2017 14:02:40 06/29/2017 15:14:49 Pain of multiple joints 42130502 M25.50 recurring joint pain and tenderness family h/o lupus with recurring back pain, tenderness with negative RF without synovitis or dactylitis today reported swollen joints, backs of the hands and wrists with negative inflammato ry labs with elevated uric acid level and treatment with colcrys and allopurino l can f/u prn discussed and will have him f/u with his pcp Diarrhea 97458136 R19.7 recurring reported diarrhea worsening fatigue and weakness with negative ibd panel Fatigue 76642504 R53.83 worsening fatigue with family h/o thyroid issues with negative labs Vitamin D deficiency 347 79389 E55.9 reported history of the same normal findings Vitamin B1 2 deficiency (non anemic) 25946627 E53.8 reported history of the same stable labs today Low back pain 112897086 M54.5 recurring low back pain and tenderness without injury stiff and limited movement with negative hlab27; films indicate: will have him f/u with neurosurge ryDisc space reduction is seen at L4-S1 levels. There is grade 1retrolist hesis of L3 over L4 and grade 1 anterolist hesis of L4 overL5. Thoracic back pain [id number] M54.6 middle back pain worsening with stiff and limited movement with normal films Neck pain [id number] M54.2 chronic and recurring limited rom normal films Hyperuricemia [id number] E 79.0 7.3 elevated along with recurring joint pain will start colchicine at 0.6 mg bid x 2 months needs allopurino l once daily 300 mg daily Expiratory wheezing 9763 007 R06.2 right sided wheezing; rales in lower base normal chest xray have him f/u with his pcp [id number] BILLY SWANSON MD [address] [place] [address] 07/15/2022 12:25:15 07/18/2022 04:08:12 Prostate specific antigen above reference range [id number] R97.20 Benign pro static hyperplasia with outflow obstruction [id number] N40.1 [id number] BILLY SWANSON MD [address] [place] [address] 08/12/2022 12:42:34 08/12/2022 15:43:52 Prostate specific antigen above reference range [id number] R97.20 Benign pro static hyperplasia with outflow obstruction [id number] N40.1 [id number] BILLY SWANSON MD SURGERY SCHEDULE [address] [place] [address] 09/15/2022 06:52:32 09/15/2022 06:53:29 Health Concerns Section Related Observation LastModified by Organization Detai ls LastModified Time None Recorded Concern Status LastModified by Organization Details LastModified Time None Recorded Advance Directives Directive None Recorded Payers Insurance Date Sequence Insurance Name Policy Number Policy Glover Covered Member ID Glover Member ID Guarantor Name 09/28/2022 1 [id number] [id number] July Gordon [id number] Ramses Gordon 08/10/2020 PAYMENT PLAN Ramses Gordon Notes Date Note Type Note Provider Name and Address Organization Details Recorded Time 06/27/2017 text/html ROS as noted in the HPI 46M with chronic low back and bilateral [...] difficulty emptying his bladder. BILLY STARKEY PA-C [address] [place] [address], [phone], [facility] 06/27/2017 13:08:17 06/29/2017 text/html ROS as noted in the HPI f/u after being here for an initial evaluation to f/u on findings; here due to pain; family h/o lupus; having neck and low back pain and tenderness with h/o low back herniation; having intense pain in groin; having anal pain as well; having burning and tingling pain; reports mri done at provider in [place] 6 years ago; left kidney disease from [...] all others are negative JOANA PEARCE APRN [address] [place] [address], [phone], [facility] 07/05/2017 10:39:38 07/15/2022 text/html 51-year-old male in the office for my initial evaluation and for discussion of raised PSA. PSA trend listed below. He has family history of maternal grandfather having prostate carcinoma. He voids every 3 hours with nocturia 2-3 times nightly. He denies hesitancy. No hematuria or dysuria. PSA:April 2021-3.4January 2022-4.09 BILLY SWANSON MD [address] [place] [address], [phone], [facility] 07/17/2022 12:59:59 08/12/2022 text/html 51-year-old male in the office for my evaluation and for discussion of raised PSA. PSA trend listed below. He has family history of maternal grandfather having prostate carcinoma. He has finished empiric antibiotics since his last visit. PSA in April was 4.0. No hematuria. No dysuria. PSA:August 2022-5.17January 2022-4.09January 2021-3.4 BILLY SWANSON MD [address] [place] [address], [phone], [facility] 08/14/2022 13:17:35
--- OUTSIDE RECORDS SUMMARY | 2025-01-02 06:44 | XMS_ITS | Encounter Summary ---
Author Organization Healthcare Address [address] [place] [address] Care Team Providers Care Welding Rod Coater Name Role Phone Megan Nuñez Primary Care Provider [phone] Encounter Details Date Type Department Care Team (Late st Contact Info) Description 12/26/2024 [facility]phone [facility] [address] [place] [address] Vimal Patton MD [address] [place] [address] Social History Tobacco Use Types [...] encounter Miscellaneous Notes * Telephone Encounter - Esmer Blanton - 12/26/2024 2:07 PM EDT Sent mychart message letting him know order has been faxed to the given fax number * Telephone Encounter - Anita Benson - 12/26/2024 11:59 AM EDT Clinical Concern/Question Reason for Call: Pt called, asking if the lab orders can be sent to [facility] in [place] since it is closer to home? . Please call pt when complete so he knows when sent sohe can call to [facility]. Thanks! Best contact number: [phone] (home) Optimal time of day to reach caller: ANYTIME Additional comments/information from caller: None Note: Please do not reply to this message. Follow-up communication and further actions as a result of this message need to be communicated with the patient directly, if the patient is not active onMyChart. If the patient is active on MyChart, they will receive notification of the communication/outcome via [employer]. documented in this encounter Plan of Treatment Upcoming Encounters Date Type Department Care Team ([facility] st Contact Info) Description 01/06/2025 10:00 AM EDT Office Visit Medical Office Building Urology [address] [facility], [address] [place] [address] Vimal Patton MD [address] [facility] [address] [place] [address] documented as of this encounter [...] documented as of this encounter Care Teams Welding Rod Coater Relationship Specialty Start Date End Date Megan Nuñez PA [facility] [address] [place] [address] PCP - General 08/08/23 documented as of this encounter
== END ==
LOC: SL 06:41
PROVIDERS: Visit Provider Specialist
DX: G47.33 Obstructive sleep apnea (adult) (pediatric) (principal); I10 Essential (primary) hypertension; E66.9 Obesity, unspecified
CPT/HCPCS: G0399